=== PATIENT | female | born 1995 | race Caucasian/White ===

== ENCOUNTER 2018-08-17 14:21 | Emergency (ER) | payer BC ==
[2018-08-17] MEDS ORDERED: Ondansetron 4 MG Tab.DIS PO ONE (14:55)
--- NOTE | 2018-08-17 15:01 | EDM.PDOC ---
ED HPI GENERAL MEDICAL PROBLEM - General Chief Complaint: Abdominal Pain Stated Complaint: FEELING SICK Time Seen by Provider: 08/17/18 14:54 Source of Information: Reports: Patient History Limitations: Reports: No Limitations - History of Present Illness INITIAL COMMENTS - FREE TEXT/NARRATIVE: HISTORY AND PHYSICAL: History of present illness: Patient is a 23-year-old female who presents to the emergency room with complaints of pelvic pain, nausea and irregular menses. She states over the past 2 months she has had an irregular spotty menstrual period. Over the past 2 weeks she has had mild nausea without vomiting. She has taken home tests which have been negative. She denies any vaginal discharge. Denies any fever, chills, chest pain, shortness of breath or cough. Denies any abdominal pain, diarrhea, constipation or dysuria. She has been able to eat and drink appropriately. Review of systems: As per history of present illness and below otherwise all systems reviewed and negative. Past medical history: As per history of present illness and as reviewed below otherwise noncontributory. Surgical history: As per history of present illness and as reviewed below otherwise noncontributory. Social history: See social history for further information Family history: As per history of present illness and as reviewed below otherwise noncontributory. Physical exam: General: Well-developed and well-nourished 23-year-old female. Alert and oriented. Nontoxic appearing and in no acute distress. HEENT: Atraumatic, normocephalic, pupils equal and reactive bilaterally, negative for conjunctival pallor or scleral icterus, mucous membranes moist, TMs normal bilaterally, throat clear, neck supple, nontender, trachea midline. No drooling or trismus noted. No meningeal signs. No hot potato voice noted. Lungs: Clear to auscultation, breath sounds equal bilaterally, chest nontender. Heart: S1S2, regular rate and rhythm without overt murmur Abdomen: Soft, nondistended, nontender. Negative for masses or hepatosplenomegaly. Negative for costovertebral tenderness. Pelvis: Stable nontender. Genitourinary: Deferred. Rectal: Deferred. Skin: Intact, warm, dry. No lesions or rashes noted. Extremities: Atraumatic, negative for cords or calf pain. Neurovascular unremarkable. Neuro: Awake, alert, oriented. Cranial nerves II through XII unremarkable. Cerebellum unremarkable. Motor and sensory unremarkable throughout. Exam nonfocal. Notes: Lab work is unremarkable other than she does have a urinary tract infection. Ultrasound of the pelvis shows a 3.4 x 4 cm left ovarian cyst, otherwise unremarkable. This information was shared with the patient she was given education on appropriate follow-up and supportive care measures for home. She voices understanding and is agreeable to plan of care. Denies any further questions or concerns at this time. Diagnostics: CBC, CMP, UA, urine Therapeutics: Zofran ODT Prescription: Macrobid Pyridium Zofran Impression: UTI Ovarian Cyst, left Plan: 1. Take your antibiotic as directed. 2. Increase your oral fluids. Gentle heat to the low abdomen. Alternate Tylenol and ibuprofen for pain. 3. Follow up with the OBGYN for further evaluation and management of your irregular menstrual periods. Return to the ED as needed and as discussed. Definitive disposition and diagnosis as appropriate pending reevaluation and review of above. Duration: Week(s): lower abdomen, pelvic Pain Score (Numeric/FACES): 4 - Related Data Allergies Allergy/AdvReac Type Severity Reaction Status Date / Time No Known Allergies Allergy Verified 08/17/18 14:47 Home Meds: Home Meds Control 1 tab PO DAILY 08/17/18 [History] Nitrofurantoin Monohyd/M-Cryst [Macrobid 100 mg Capsule] 100 mg PO BID 7 Days # 14 capsule 08/17/18 [Rx] Phenazopyridine HCl [Pyridium] 100 mg PO TID 2 Days #6 tablet 08/17/18 [Rx] Sertraline [Zoloft] 200 mg PO DAILY 08/17/18 [History] Topiramate 50 mg PO BID 08/17/18 [History] Past Medical History - Past Health History Medical/Surgical History: Denies Medical/Surgical History - Past Surgical History HEENT Surgical History: Reports: Adenoidectomy Social & Family History - Family History Endocrine/Metabolic: Reports: Diabetes, Type I Oncologic: Reports: Leukemia - Tobacco Use Smoking Status *Q: Current Every Day Smoker Years of Tobacco use: 6 Packs/Tins Daily: 0.1 - Caffeine Use Caffeine Use: Reports: None - Recreational Drug Use Recreational Drug Use: No ED ROS GENERAL - Review of Systems Review Of Systems: ROS reveals no pertinent complaints other than HPI. ED EXAM, RENAL/ - Physical Exam Exam: See Below (See dictation) Course - Vital Signs Last Recorded V/S: Last Vital Signs Temp 98.2 F 08/17/18 14:43 Pulse 82 08/17/18 16:39 Resp 16 08/17/18 16:39 BP 117/75 08/17/18 16:39 Pulse Ox 96 08/17/18 16:39 - Orders/Labs/Meds Labs: Laboratory Tests 08/17/18 08/17/18 08/17/18 Range/Units 15:04 15:04 15:04 WBC 11.40 H (4.0-11.0) K/uL RBC 4.67 (4.30-5.90) M/uL Hgb 13.1 (12.0-16.0) g/dL Hct 39.8 (36.0-46.0) % MCV 85.2 (80.0-98.0) fL MCH 28.1 (27.0-32.0) pg MCHC 32.9 (31.0-37.0) g/dL RDW Std Deviation 41.0 (28.0-62.0) fl RDW Coeff of Sherita 13 (11.0-15.0) % Plt Count 370 (150-400) K/uL MPV 10.30 (7.40-12.00) fL Neut % (Auto) 71.0 (48.0-80.0) % Lymph % (Auto) 20.1 (16.0-40.0) % [place] % (Auto) 6.1 (0.0-15.0) % Eos % (Auto) 2.5 (0.0-7.0) % Baso % (Auto) 0.3 (0.0-1.5) % Neut # (Auto) 8.1 H (1.4-5.7) K/uL Lymph # (Auto) 2.3 (0.6-2.4) K/uL [place] # (Auto) 0.7 (0.0-0.8) K/uL Eos # (Auto) 0.3 (0.0-0.7) K/uL Baso # (Auto) 0.0 (0.0-0.1) K/uL Nucleated RBC % 0.0 /100WBC Nucleated RBCs # 0 K/uL Sodium 141 (136-145) mmol/L Potassium 4.0 (3.5-5.1) mmol/L Chloride 107 (98-107) mmol/L Carbon Dioxide 27.1 (21.0-32.0) mmol/L BUN 14 (7.0-18.0) mg/dL Creatinine 1.2 H (0.6-1.0) mg/dL Est Cr Clr Drug Dosing 71.51 mL/min Estimated GFR (MDRD) 56.2 ml/min Glucose 98 (74-106) mg/dL Calcium 9.7 (8.5-10.1) mg/dL Total Bilirubin 0.2 (0.2-1.0) mg/dL AST 17 (15-37) IU/L ALT 31 (14-63) IU/L Alkaline Phosphatase 80 (46-116) U/L Total Protein 7.8 (6.4-8.2) g/dL Albumin 3.6 (3.4-5.0) g/dL Globulin 4.2 H (2.6-4.0) g/dL Albumin/Globulin Ratio 0.9 (0.9-1.6) HCG, Qual NEGATIVE (NEG) Urine Color Urine Appearance Urine pH (5.0-8.0) Ur Specific [place] (1.001-1.035) Urine Protein (NEGATIVE) mg/dL Urine Glucose (UA) (NEGATIVE) mg/dL Urine Ketones (NEGATIVE) mg/dL Urine Occult Blood (NEGATIVE) Urine Nitrite (NEGATIVE) Urine Bilirubin (NEGATIVE) Urine Urobilinogen (<2.0) EU/dL Ur Leukocyte Esterase (NEGATIVE) Urine RBC (0-2/HPF) Urine WBC (0-5/HPF) Ur Epithelial Cells (NONE-FEW) Calcium Oxalate Crystal (NEGATIVE) Amorphous Sediment (NEGATIVE) Urine Bacteria (NEGATIVE) Urine Mucus (NONE-MOD) 08/17/18 Range/Units 15:33 WBC (4.0-11.0) K/uL RBC (4.30-5.90) M/uL Hgb (12.0-16.0) g/dL Hct (36.0-46.0) % MCV (80.0-98.0) fL MCH (27.0-32.0) pg MCHC (31.0-37.0) g/dL RDW Std Deviation (28.0-62.0) fl RDW Coeff of Sherita (11.0-15.0) % Plt Count (150-400) K/uL MPV (7.40-12.00) fL Neut % (Auto) (48.0-80.0) % Lymph % (Auto) (16.0-40.0) % [place] % (Auto) (0.0-15.0) % Eos % (Auto) (0.0-7.0) % Baso % (Auto) (0.0-1.5) % Neut # (Auto) (1.4-5.7) K/uL Lymph # (Auto) (0.6-2.4) K/uL [place] # (Auto) (0.0-0.8) K/uL Eos # (Auto) (0.0-0.7) K/uL Baso # (Auto) (0.0-0.1) K/uL Nucleated RBC % /100WBC Nucleated RBCs # K/uL Sodium (136-145) mmol/L Potassium (3.5-5.1) mmol/L Chloride (98-107) mmol/L Carbon Dioxide (21.0-32.0) mmol/L BUN (7.0-18.0) mg/dL Creatinine (0.6-1.0) mg/dL Est Cr Clr Drug Dosing mL/min Estimated GFR (MDRD) ml/min Glucose (74-106) mg/dL Calcium (8.5-10.1) mg/dL Total Bilirubin (0.2-1.0) mg/dL AST (15-37) IU/L ALT (14-63) IU/L Alkaline Phosphatase (46-116) U/L Total Protein (6.4-8.2) g/dL Albumin (3.4-5.0) g/dL Globulin (2.6-4.0) g/dL Albumin/Globulin Ratio (0.9-1.6) HCG, Qual (NEG) Urine Color YELLOW Urine Appearance SLT CLOUDY Urine pH 6.0 (5.0-8.0) Ur Specific [place] 1.025 (1.001-1.035) Urine Protein NEGATIVE (NEGATIVE) mg/dL Urine Glucose (UA) NEGATIVE (NEGATIVE) mg/dL Urine Ketones TRACE H (NEGATIVE) mg/dL Urine Occult Blood NEGATIVE (NEGATIVE) Urine Nitrite NEGATIVE (NEGATIVE) Urine Bilirubin NEGATIVE (NEGATIVE) Urine Urobilinogen 0.2 (<2.0) EU/dL Ur Leukocyte Esterase NEGATIVE (NEGATIVE) Urine RBC 0-2 (0-2/HPF) Urine WBC 2-3 (0-5/HPF) Ur Epithelial Cells FEW (NONE-FEW) Calcium Oxalate Crystal FEW (NEGATIVE) Amorphous Sediment FEW (NEGATIVE) Urine Bacteria FEW (NEGATIVE) Urine Mucus FEW (NONE-MOD) Meds: Medications Discontinued Medications Generic Name Dose Route Start Last Admin Trade Name Gama PRN Reason Stop Dose Admin Ketorolac Tromethamine 30 mg 08/17/18 15:53 08/17/18 16:39 Toradol IVPUSH 08/17/18 15:54 Not Given ONETIME ONE Ondansetron HCl 4 mg 08/17/18 14:55 08/17/18 15:32 Zofran Odt PO 08/17/18 14:56 4 mg ONETIME ONE Administration Departure - Departure Time of Disposition: 16:45 Disposition: Home, Self-Care 01 Clinical Impression: Ovarian cyst Qualifiers: Laterality: left Qualified Code(s): N83.202 - Unspecified ovarian cyst, left side Urinary tract infection Qualifiers: Urinary tract infection type: acute cystitis Hematuria presence: without hematuria Qualified Code(s): N30.00 - Acute cystitis without hematuria - Discharge Information Prescriptions: Nitrofurantoin Monohyd/M-Cryst [Macrobid 100 mg Capsule] 100 mg PO BID 7 Days # 14 capsule Phenazopyridine HCl [Pyridium] 100 mg PO TID 2 Days #6 tablet Instructions: Ovarian Cyst, [id number], Urinary Tract Infection, Adult Referrals: PCP,Unknown [Primary Care Provider] - Forms: ED Department Discharge Care Plan Goals: The following information is given to patients seen in the emergency department who are being discharged to home. This information is to outline your options for follow-up care. We provide all patients seen in our emergency department with a follow-up referral. The need for follow-up, as well as the timing and circumstances, are variable depending upon the specifics of your emergency department visit. If you don't have a primary care physician on staff, we will provide you with a referral. We always advise you to contact your personal physician following an emergency department visit to inform them of the circumstance of the visit and for follow-up with them and/or the need for any referrals to a consulting specialist. The emergency department will also refer you to a specialist when appropriate. This referral assures that you have the opportunity for follow-up care with a specialist. All of these measure are taken in an effort to provide you with optimal care, which includes your follow-up. Under all circumstances we always encourage you to contact your private physician who remains a resource for coordinating your care. When calling for follow-up care, please make the office aware that this follow-up is from your recent emergency room visit. If for any reason you are refused follow-up, please contact the [facility] at and asked to speak to the emergency department charge nurse. [facility] [address] [place] [id number] [address] [facility] [address] [place] [id number] 1. Take your antibiotic as directed. 2. Increase your oral fluids. Gentle heat to the low abdomen. Alternate Tylenol and ibuprofen for pain. 3. Follow up with the OBGYN for further evaluation and management of your irregular menstrual periods. Return to the ED as needed and as discussed.
[2018-08-17] MEDS ORDERED: Ketorolac 30 MG/ML SDV IVPUSH ONE (15:53)
--- NOTE | 2018-08-17 16:39 | US ---
EXAMINATION: Transabdominal and transvaginal pelvic ultrasound HISTORY: Pain COMPARISON: None TECHNIQUE: Grayscale, color Doppler, spectral Doppler imaging obtained. FINDINGS: The uterus is normal in contour and echotexture without a focal mass. Endometrial stripe thickness measures 1 cm and is otherwise unremarkable. There is a 3.4 x 4 cm left ovarian cyst, essentially simple. Otherwise the ovaries appear otherwise unremarkable demonstrating normal color spectral Doppler flow. Trace free pelvic fluid. IMPRESSION: 1. There is a 3.4 x 4 cm left ovarian cyst otherwise unremarkable pelvic ultrasound.
== END 2018-08-17 17:09 | disposition home or self-care (01) ==
LOC: MW.ED 14:21
DX: N83.202 Unspecified ovarian cyst, left side (principal); N39.0 Urinary tract infection, site not specified; F17.210 Nicotine dependence, cigarettes, uncomplicated
CPT/HCPCS: 36415; 76856; 80053; 81001; 84703; 85025; 99284; A9270; 99283

== ENCOUNTER 2018-11-21 11:06 | Emergency (ER) | payer BC ==
[2018-11-21] MEDS ORDERED: Sodium Chloride 0.9% 1,000 ML IV ONE (11:10)
[2018-11-21] MEDS ORDERED: Ondansetron 4 MG/2 ML SDV IVPUSH ONE (11:10)
--- NOTE | 2018-11-21 11:11 | EDM.PDOC ---
ED HPI GENERAL MEDICAL PROBLEM - General Chief Complaint: Abdominal Pain Stated Complaint: ABDOMINAL PAIN Time Seen by Provider: 11/21/18 11:10 Source of Information: Reports: Patient - History of Present Illness INITIAL COMMENTS - FREE TEXT/NARRATIVE: HISTORY AND PHYSICAL: History of present illness: [Patient presents with right lower quadrant pain 3 out of 10 nonradiating that began at 10 AM this morning no fever nausea vomiting chills sweats ] Review of systems: As per history of present illness and below otherwise all systems reviewed and negative. Past medical history: As per history of present illness and as reviewed below otherwise noncontributory. Surgical history: As per history of present illness and as reviewed below otherwise noncontributory. Social history: No reported history of drug or alcohol abuse. Family history: As per history of present illness and as reviewed below otherwise noncontributory. Physical exam: HEENT: Atraumatic, normocephalic, pupils reactive, negative for conjunctival pallor or scleral icterus, mucous membranes moist, throat clear, neck supple, nontender, trachea midline. Lungs: Clear to auscultation, breath sounds equal bilaterally, chest nontender. Heart: S1S2, regular, negative for clicks, rubs, or JVD. Abdomen: Soft, nondistended, patient is tender on deep palpation in the right lower quadrant no guarding or rebound tenderness. Negative for masses or hepatosplenomegaly. Negative for costovertebral tenderness. Pelvis: Stable nontender. Genitourinary: Deferred. Rectal: Deferred. Extremities: Atraumatic, negative for cords or calf pain. Neurovascular unremarkable. Neuro: Awake, alert, oriented. Cranial nerves II through XII unremarkable. Cerebellum unremarkable. Motor and sensory unremarkable throughout. Exam nonfocal. Diagnostics: [CBC CMP UA hCG troponin lipase ]CT abdomen pelvis Therapeutics: []Renal saline Zofran Toradol Toradol Current if symptoms persist or worsen Lengthy discussion concerning early appendicitis versus ovarian cyst as she does have an enlarged appendix [address] however no secondary inflammatory changes along with an ovarian cyst on the right radiology feels this is less likely appendix, I did page for Dr. Eagle however he has not responded patient is wanting to go home and she'll return if symptoms persist or worsen she voice understanding of possibility of early appendicitis Impression: [] abdominal pain Definitive disposition and diagnosis as appropriate pending reevaluation and review of above. abd Pain Score (Numeric/FACES): 8 - Related Data Allergies Allergy/AdvReac Type Severity Reaction Status Date / Time No Known Allergies Allergy Verified 08/17/18 14:47 Home Meds: Home Meds Control 1 tab PO DAILY 08/17/18 [History] Topiramate 50 mg PO BID 08/17/18 [History] FLUoxetine HCl [Prozac] 20 mg PO DAILY 11/21/18 [History] Past Medical History - Past Health History Medical/Surgical History: Denies Medical/Surgical History - Past Surgical History HEENT Surgical History: Reports: Adenoidectomy Social & Family History - Family History Endocrine/Metabolic: Reports: Diabetes, Type I Oncologic: Reports: Leukemia - Caffeine Use Caffeine Use: Reports: None ED ROS GENERAL - Review of Systems Review Of Systems: See Below ED EXAM, GENERAL - Physical Exam Exam: See Below Course - Vital Signs Last Recorded V/S: Last Vital Signs Temp 97 F 11/21/18 11:14 Pulse 74 11/21/18 13:29 Resp 18 11/21/18 13:29 BP 110/60 11/21/18 13:29 Pulse Ox 98 11/21/18 13:29 - Orders/Labs/Meds Labs: Laboratory Tests 11/21/18 11/21/18 11/21/18 Range/Units 11:40 11:40 11:42 WBC 10.71 (4.0-11.0) K/uL RBC 4.61 (4.30-5.90) M/uL Hgb 12.9 (12.0-16.0) g/dL Hct 40.1 (36.0-46.0) % MCV 87.0 (80.0-98.0) fL MCH 28.0 (27.0-32.0) pg MCHC 32.2 (31.0-37.0) g/dL RDW Std Deviation 42.9 (28.0-62.0) fl RDW Coeff of Sherita 14 (11.0-15.0) % Plt Count 299 (150-400) K/uL MPV 10.50 (7.40-12.00) fL Neut % (Auto) 70.7 (48.0-80.0) % Lymph % (Auto) 20.1 (16.0-40.0) % [place] % (Auto) 5.7 (0.0-15.0) % Eos % (Auto) 3.2 (0.0-7.0) % Baso % (Auto) 0.3 (0.0-1.5) % Neut # (Auto) 7.6 H (1.4-5.7) K/uL Lymph # (Auto) 2.2 (0.6-2.4) K/uL [place] # (Auto) 0.6 (0.0-0.8) K/uL Eos # (Auto) 0.3 (0.0-0.7) K/uL Baso # (Auto) 0.0 (0.0-0.1) K/uL Nucleated RBC % 0.0 /100WBC Nucleated RBCs # 0 K/uL Sodium 140 (136-145) mmol/L Potassium 4.2 (3.5-5.1) mmol/L Chloride 107 (98-107) mmol/L Carbon Dioxide 22.9 (21.0-32.0) mmol/L BUN 15 (7.0-18.0) mg/dL Creatinine 0.9 (0.6-1.0) mg/dL Est Cr Clr Drug Dosing 91.79 mL/min Estimated GFR (MDRD) > 60.0 ml/min Glucose 109 H (74-106) mg/dL Calcium 8.9 (8.5-10.1) mg/dL Total Bilirubin 0.4 (0.2-1.0) mg/dL AST 29 (15-37) IU/L ALT 39 (14-63) IU/L Alkaline Phosphatase 58 (46-116) U/L Troponin I < 0.050 (0.000-0.056) ng/mL Total Protein 7.2 (6.4-8.2) g/dL Albumin 3.4 (3.4-5.0) g/dL Globulin 3.8 (2.6-4.0) g/dL Albumin/Globulin Ratio 0.9 (0.9-1.6) Lipase 75 (73-393) U/L Urine Color YELLOW Urine Appearance CLEAR Urine pH 5.5 (5.0-8.0) Ur Specific [place] >= 1.030 (1.001-1.035) Urine Protein NEGATIVE (NEGATIVE) mg/dL Urine Glucose (UA) NEGATIVE (NEGATIVE) mg/dL Urine Ketones NEGATIVE (NEGATIVE) mg/dL Urine Occult Blood NEGATIVE (NEGATIVE) Urine Nitrite NEGATIVE (NEGATIVE) Urine Bilirubin NEGATIVE (NEGATIVE) Urine Urobilinogen 0.2 (<2.0) EU/dL Ur Leukocyte Esterase NEGATIVE (NEGATIVE) Urine HCG, Qual (NEGATIVE) 11/21/18 Range/Units 11:42 WBC (4.0-11.0) K/uL RBC (4.30-5.90) M/uL Hgb (12.0-16.0) g/dL Hct (36.0-46.0) % MCV (80.0-98.0) fL MCH (27.0-32.0) pg MCHC (31.0-37.0) g/dL RDW Std Deviation (28.0-62.0) fl RDW Coeff of Sherita (11.0-15.0) % Plt Count (150-400) K/uL MPV (7.40-12.00) fL Neut % (Auto) (48.0-80.0) % Lymph % (Auto) (16.0-40.0) % [place] % (Auto) (0.0-15.0) % Eos % (Auto) (0.0-7.0) % Baso % (Auto) (0.0-1.5) % Neut # (Auto) (1.4-5.7) K/uL Lymph # (Auto) (0.6-2.4) K/uL [place] # (Auto) (0.0-0.8) K/uL Eos # (Auto) (0.0-0.7) K/uL Baso # (Auto) (0.0-0.1) K/uL Nucleated RBC % /100WBC Nucleated RBCs # K/uL Sodium (136-145) mmol/L Potassium (3.5-5.1) mmol/L Chloride (98-107) mmol/L Carbon Dioxide (21.0-32.0) mmol/L BUN (7.0-18.0) mg/dL Creatinine (0.6-1.0) mg/dL Est Cr Clr Drug Dosing mL/min Estimated GFR (MDRD) ml/min Glucose (74-106) mg/dL Calcium (8.5-10.1) mg/dL Total Bilirubin (0.2-1.0) mg/dL AST (15-37) IU/L ALT (14-63) IU/L Alkaline Phosphatase (46-116) U/L Troponin I (0.000-0.056) ng/mL Total Protein (6.4-8.2) g/dL Albumin (3.4-5.0) g/dL Globulin (2.6-4.0) g/dL Albumin/Globulin Ratio (0.9-1.6) Lipase (73-393) U/L Urine Color Urine Appearance Urine pH (5.0-8.0) Ur Specific [place] (1.001-1.035) Urine Protein (NEGATIVE) mg/dL Urine Glucose (UA) (NEGATIVE) mg/dL Urine Ketones (NEGATIVE) mg/dL Urine Occult Blood (NEGATIVE) Urine Nitrite (NEGATIVE) Urine Bilirubin (NEGATIVE) Urine Urobilinogen (<2.0) EU/dL Ur Leukocyte Esterase (NEGATIVE) Urine HCG, Qual NEGATIVE (NEGATIVE) Meds: Medications Discontinued Medications Generic Name Dose Route Start Last Admin Trade Name Joseq PRN Reason Stop Dose Admin Sodium Chloride 1,000 mls @ 999 mls/hr 11/21/18 11:10 11/21/18 11:37 Normal Saline IV 11/21/18 12:10 999 mls/hr STAT ONE Administration Iopamidol 100 ml 11/21/18 12:52 11/21/18 12:52 Isovue Multipack-370 (76%) IVPUSH 11/21/18 12:53 100 ml ONETIME ONE Administration Ketorolac Tromethamine 30 mg 11/21/18 11:40 11/21/18 12:08 Toradol IVPUSH 11/21/18 11:41 30 mg ONETIME ONE Administration Ondansetron HCl 8 mg 11/21/18 11:10 11/21/18 11:38 Zofran IVPUSH 11/21/18 11:11 8 mg ONETIME ONE Administration Departure - Departure Time of Disposition: 14:26 Disposition: Home, Self-Care 01 Condition: Good Clinical Impression: Abdominal pain - Discharge Information Referrals: PCP,None [Primary Care Provider] - Forms: ED Department Discharge Additional Instructions: Return if symptoms persist or worsen or if new concerning symptoms develop chest fever vomiting chills sweats increased abdominal pain Medication as prescribed Is discussed this could represent a very early appendicitis is your appendix is larger than normal however there are no secondary inflammatory changes also there is a ovarian cyst that a likely be the problem as well if symptoms above persist or worsen return to emergency room for reevaluation The following information is given to patients seen in the emergency department who are being discharged to home. This information is to outline your options for follow-up care. We provide all patients seen in our emergency department with a follow-up referral. The need for follow-up, as well as the timing and circumstances, are variable depending upon the specifics of your emergency department visit. If you don't have a primary care physician on staff, we will provide you with a referral. We always advise you to contact your personal physician following an emergency department visit to inform them of the circumstance of the visit and for follow-up with them and/or the need for any referrals to a consulting specialist. The emergency department will also refer you to a specialist when appropriate. This referral assures that you have the opportunity for follow-up care with a specialist. All of these measure are taken in an effort to provide you with optimal care, which includes your follow-up. Under all circumstances we always encourage you to contact your private physician who remains a resource for coordinating your care. When calling for follow-up care, please make the office aware that this follow-up is from your recent emergency room visit. If for any reason you are refused follow-up, please contact the [facility] emergency department at and asked to speak to the emergency department charge nurse.
[2018-11-21] MEDS ORDERED: Ketorolac 30 MG/ML SDV IVPUSH ONE (11:40)
[2018-11-21 12:18] LABS: CHLORIDE,CL 107 mmol/L (98-107); SODIUM,NA 140 mmol/L (136-145)
[2018-11-21] MEDS ORDERED: Iopamidol 755 MG/ML 200 ML Multipack Bottle IVPUSH ONE (12:52)
--- NOTE | 2018-11-21 13:51 | CT ---
INDICATION: Right lower quadrant abdominal pain. Vomiting. TECHNIQUE: CT abdomen and pelvis acquired with IV contrast. COMPARISON: None FINDINGS: Lower chest: Unremarkable. Liver: Unremarkable. Spleen: Unremarkable. Pancreas: Unremarkable. Gallbladder and bile ducts: Tiny gallstones noted. No wall thickening or pericholecystic fluid Kidneys: Unremarkable. Adrenal glands: Unremarkable. GI tract: The appendix is prominent measuring 7 mm in caliber. However, there is no significant periappendiceal inflammatory fat stranding. There is gas in the base of the appendix. No appendicolith. There is no bowel wall thickening. No small bowel obstruction. Vascular structures: No sign of aneurysm. Lymph nodes: Unremarkable. Miscellaneous: No free air. There is a small amount of free fluid in the pelvis, left and right pericolic gutters as well as at the anterior margin of the liver. Pelvic Organs: 2.2 cm cyst in the right ovary. 1.6 cm cyst in the left ovary. Uterus and urinary bladder appear normal. Bones: No acute abnormality. No suspicious bone lesion. IMPRESSION: 1. There is a small amount of free fluid in the pelvis, the left and right pericolic gutters as well as at the anterior margin of the liver. The etiology is uncertain. There are bilateral ovarian cysts, greater on the right, and this may be sequelae of rupture of an ovarian cyst. Consider pelvic ultrasound. 2. Although the appendix is prominent measuring 7 mm there is no significant periappendiceal inflammatory fat stranding and no appendicolith. This is unlikely to represent appendicitis. Recommend close clinical followup. 3. Tiny gallstones. Dictated by Jake Sullivan MD @ 11/21/2018 1:48:26 PM Please note that all CT scans at this facility use dose modulation, iterative reconstruction, and/or weight-based dosing when appropriate to reduce radiation dose to as low as reasonably achievable. Dictated by: Jake Sullivan MD @ 11/21/2018 13:48:30 (Electronically Signed)
== END 2018-11-21 14:41 | disposition home or self-care (01) ==
LOC: MW.ED 11:06
DX: R10.31 Right lower quadrant pain (principal)
CPT/HCPCS: 74177; 80053; 81003; 81025; 83690; 84484; 85025; 96361; 96374; 96375; 99284; J1885; J2405; J7040; Q9967

== ENCOUNTER 2019-02-14 23:47 | Emergency (ER) | payer BC ==
[2019-02-15] MEDS ORDERED: Phenazopyridine 200 MG Tab PO ONE (00:21)
--- NOTE | 2019-02-15 00:21 | EDM.PDOC ---
ED HPI GENERAL MEDICAL PROBLEM - General Chief Complaint: Genitourinary Problem Stated Complaint: POSSIBLE UTI Time Seen by Provider: 02/15/19 00:18 - History of Present Illness INITIAL COMMENTS - FREE TEXT/NARRATIVE: HISTORY AND PHYSICAL: History of present illness: Patient 23-year-old female presents with concern of discomfort with urination and frequency there's been no fever chills nausea vomiting or back pain she states that similar episodes in the past with urinary tract infection Review of systems: As per history of present illness and below otherwise all systems reviewed and negative. Past medical history: As per history of present illness and as reviewed below otherwise noncontributory. Surgical history: As per history of present illness and as reviewed below otherwise noncontributory. Social history: No reported history of drug or alcohol abuse. Family history: As per history of present illness and as reviewed below otherwise noncontributory. Physical exam: HEENT: Atraumatic, normocephalic, pupils reactive, negative for conjunctival pallor or scleral icterus, mucous membranes moist, throat clear, neck supple, nontender, trachea midline. Lungs: Clear to auscultation, breath sounds equal bilaterally, chest nontender. Heart: S1S2, regular, negative for clicks, rubs, or JVD. Abdomen: Soft, nondistended, nontender. Negative for masses or hepatosplenomegaly. Negative for costovertebral tenderness. Pelvis: Stable nontender. Genitourinary: Deferred. Rectal: Deferred. Extremities: Atraumatic, negative for cords or calf pain. Neurovascular unremarkable. Neuro: Awake, alert, oriented. Cranial nerves II through XII unremarkable. Cerebellum unremarkable. Motor and sensory unremarkable throughout. Exam nonfocal. Diagnostics: UA hCG Therapeutics: None Impression: 1 urinary tract infection Definitive disposition and diagnosis as appropriate pending reevaluation and review of above. Left Flank Pain Score (Numeric/FACES): 6 - Related Data Allergies Allergy/AdvReac Type Severity Reaction Status Date / Time No Known Allergies Allergy Verified 02/15/19 00:02 Past Medical History - Past Health History Medical/Surgical History: Denies Medical/Surgical History - Infectious Disease History Infectious Disease History: Reports: None - Past Surgical History HEENT Surgical History: Reports: Adenoidectomy Social & Family History - Family History Family Medical History: Noncontributory Endocrine/Metabolic: Reports: Diabetes, Type I Oncologic: Reports: Leukemia - Tobacco Use Smoking Status *Q: Former Smoker Years of Tobacco use: 6 Packs/Tins Daily: 1 Used Tobacco, but Quit: No - Caffeine Use Caffeine Use: Reports: Coffee - Recreational Drug Use Recreational Drug Use: No ED ROS GENERAL - Review of Systems Review Of Systems: ROS reveals no pertinent complaints other than HPI. ED EXAM, GENERAL - Physical Exam Exam: See Below (See dictation) Course - Vital Signs Last Recorded V/S: Last Vital Signs Temp 36.4 C 02/15/19 00:04 Pulse 96 02/15/19 00:04 Resp 16 02/15/19 00:04 BP 128/81 02/15/19 00:04 Pulse Ox 97 02/15/19 00:04 - Orders/Labs/Meds Orders: Active Orders 24 hr Category Date Time Status HCG QUALITATIVE,URINE [URCHEM] Stat Lab 02/14/19 23:52 Ordered UA RFX LISSETH AND CULT IF INDIC [URIN] Stat Lab 02/14/19 23:52 Ordered Departure - Departure Time of Disposition: 00:20 Disposition: Home, Self-Care 01 Condition: Good Clinical Impression: UTI, Urinary tract infectious disease - Discharge Information Referrals: PCP,None [Primary Care Provider] - Additional Instructions: The following information is given to patients seen in the emergency department who are being discharged to home. This information is to outline your options for follow-up care. We provide all patients seen in our emergency department with a follow-up referral. The need for follow-up, as well as the timing and circumstances, are variable depending upon the specifics of your emergency department visit. If you don't have a primary care physician on staff, we will provide you with a referral. We always advise you to contact your personal physician following an emergency department visit to inform them of the circumstance of the visit and for follow-up with them and/or the need for any referrals to a consulting specialist. The emergency department will also refer you to a specialist when appropriate. This referral assures that you have the opportunity for followup care with a specialist. All of these measure are taken in an effort to provide you with optimal care, which includes your followup. Under all circumstances we always encourage you to contact your private physician who remains a resource for coordinating your care. When calling for followup care, please make the office aware that this follow-up is from your recent emergency room visit. If for any reason you are refused follow-up, please contact the [facility] emergency department at and asked to speak to the emergency department charge nurse. Bactrim Pyridium as prescribed push fluids follow-up primary medical doctor as needed as discussed and return as needed as discussed - My Orders Last 24 Hours: My Active Orders 02/14/19 23:52 HCG QUALITATIVE,URINE [URCHEM] Stat UA RFX LISSETH AND CULT IF INDIC [URIN] Stat - Assessment/Plan Last 24 Hours: My Active Orders 02/14/19 23:52 HCG QUALITATIVE,URINE [URCHEM] Stat UA RFX LISSETH AND CULT IF INDIC [URIN] Stat
--- NOTE | 2019-02-15 01:31 | CT ---
INDICATION: Lower quadrant pain. COMPARISON: 11/21/2018 TECHNIQUE: CT examination of the abdomen and pelvis was performed without contrast enhancement using 3 mm thick axial sections from the lung bases through the pubic symphysis. Oral contrast was not administered. Please note that all CT scans at this facility use dose modulation, iterative reconstruction, and/or weight-based dosing when appropriate to reduce radiation dose to as low as reasonably achievable. FINDINGS: In the abdomen, the unenhanced liver, spleen, pancreas, and adrenals are normal in appearance. The unenhanced kidneys are normal in appearance. The gallbladder is normal in appearance. The abdominal aorta is normal in caliber with no sign of dilatation. There is no sign of retroperitoneal mass or adenopathy. The stomach, loops of small bowel, and colon in the abdomen are normal in appearance. In the pelvis, the air-filled appendix remains dilated to 7 millimeters but is otherwise normal in appearance with no sign of inflammatory process.. The loops of small bowel and colon in the pelvis are normal in appearance. The uterus and adnexal regions are normal in appearance. The previously seen cysts are no longer present in the ovaries. The previously seen free fluid in the pericolic gutters is no longer present. The urinary bladder is normal in appearance. There is no sign of pelvic or inguinal mass or adenopathy. The lung bases are clear. The osseous structures are normal in appearance for the patient`s age. IMPRESSION: Nothing seen to explain the patient`s left lower quadrant pain. No sign of diverticulosis or diverticulitis. No sign of abnormality in the left urinary system. No sign of any abnormality of the left ovary. Normal CT of the abdomen without contrast. Normal CT of the pelvis without contrast. Resolution of the previously seen bilateral ovarian cysts and fluid previously seen in the pericolic gutters. Please note that all CT scans at this facility use dose modulation, iterative reconstruction, and/or weight-based dosing when appropriate to reduce radiation dose to as low as reasonably achievable. Dictated by Charlie Uribe MD @ Feb 15 2019 1:24AM Signed by Dr. Charlie Uribe @ Feb 15 2019 1:30AM
== END 2019-02-15 02:06 | disposition home or self-care (01) ==
LOC: MW.ED 23:47
DX: N39.0 Urinary tract infection, site not specified (principal); F17.210 Nicotine dependence, cigarettes, uncomplicated
CPT/HCPCS: 74176; 81001; 81025; 99284; A9270; 99283

== ENCOUNTER 2019-03-07 21:58 | Emergency (ER) | payer BC ==
[2019-03-07] MEDS ORDERED: Sodium Chloride 0.9% 1,000 ML IV ONE (22:24)
[2019-03-07] MEDS ORDERED: Ketorolac 30 MG/ML SDV IVPUSH ONE (22:25)
[2019-03-07] MEDS ORDERED: Ondansetron 4 MG/2 ML SDV IVPUSH ONE (22:25)
[2019-03-07] MEDS ORDERED: diphenhydrAMINE 50 MG/ML SDV IVPUSH ONE (22:25)
[2019-03-07] MEDS ORDERED: Metoclopramide 10 MG/2 ML SDV IV ONE (22:25)
--- NOTE | 2019-03-07 22:39 | EDM.PDOC ---
<Bianca Gordon - Last Filed: 03/08/19 00:22> ED HPI GENERAL MEDICAL PROBLEM - General Chief Complaint: Fever Stated Complaint: FEVER Time Seen by Provider: 03/07/19 21:59 Source of Information: Reports: Patient History Limitations: Reports: No Limitations - History of Present Illness INITIAL COMMENTS - FREE TEXT/NARRATIVE: HISTORY AND PHYSICAL: History of present illness: Patient is a 23-year-old female presents to the ED today with concern of headache, generalized body aches, and sore throat since this morning. Patient states she does feel warm but has not had a fever. Patient states she has not taken anything for her symptoms. Patient states there is a chance that she may be as she is sexually active and is not on control. Patient denies a history of headaches and states that her headache is the worst complaint of the above. Patient denies any other symptoms or concerns at this time. Patient denies any trauma or injury. Patient denies fever, chills, chest pain, shortness of breath, or cough. Denies neck stiff ness, change in vision, syncope, or near syncope. Denies nausea, vomiting, abdominal pain, diarrhea, constipation, or dysuria. Has not noted any blood in urine or stool. Patient has been eating and drinking appropriately. Review of systems: As per history of present illness and below otherwise all systems reviewed and negative. Past medical history: As per history of present illness and as reviewed below otherwise noncontributory. Surgical history: As per history of present illness and as reviewed below otherwise noncontributory. Social history: See social history for further information Family history: As per history of present illness and as reviewed below otherwise noncontributory. Physical exam: General: Patient is alert, oriented, and in no acute distress. Patient sitting comfortably on exam table but is tired appearing. HEENT: Atraumatic, normocephalic, pupils equal and reactive bilaterally, negative for conjunctival pallor or scleral icterus, mucous membranes moist, TMs normal bilaterally, throat clear, neck supple, nontender, trachea midline. No drooling or trismus noted. No meningeal signs. No hot potato voice noted. Lungs: Clear to auscultation, breath sounds equal bilaterally, chest nontender. Heart: S1S2, regular rate and rhythm without overt murmur Abdomen: Soft, nondistended, nontender. Negative for masses or hepatosplenomegaly. Negative for costovertebral tenderness. Pelvis: Stable nontender. Genitourinary: Deferred. Rectal: Deferred. Skin: Intact, warm, dry. No lesions or rashes noted. Extremities/musculoskeletal: Atraumatic, negative for cords or calf pain. Neurovascular unremarkable. Negative Kernig and Brudzinski sign. Neuro: Awake, alert, oriented. Cranial nerves II through XII unremarkable. Cerebellum unremarkable. Motor and sensory unremarkable throughout. Exam nonfocal. Notes: Dr. Portillo was directly involved in patient care. Patient is slightly tachycardic on initial exam with HR 110-115. HR did come down to 95 with fluids. Headache has improved with therapeutics today. Did have a thorough discussion with patient about doing a lumbar procedure in order to rule out meningitis. However, patient has not had a documented fever and does not have any nuchal rigidity. Discussed the risk versus benefits of this and did express that the only way to rule out or diagnose meningitis would be the lumbar puncture. Patient declines a lumbar puncture procedure at this time and accepting of risks and expressing understanding. Admission for observation was offered but patient declines. Did discuss with patient about returning tomorrow for repeat CBC in registering in the ED for laboratory draw. Patient Voices understanding and is agreeable to plan of care. Denies any further questions or concerns at this time. Diagnostics: CBC, CMP, UA, Uhcg, strep, influenza, mononucleosis, head CT, CXR, Lactate, Blood cultures x2 Therapeutics: NS, Zofran, Toradol, Reglan, Benadryl, Rocephin 2g Prescription: Repeat CBC tomorrow (Dr. Portillo will follow) Impression: Leukocytosis Headache, unspecified Plan: 1. Continue to alternate ibuprofen and Tylenol as directed for pain and discomfort. 2. Return tomorrow after 7 PM and register for lab draw as discussed. Return to the ED as needed and as discussed. Definitive disposition and diagnosis as appropriate pending reevaluation and review of above. generalized Pain Score (Numeric/FACES): 7 - Related Data Allergies Allergy/AdvReac Type Severity Reaction Status Date / Time No Known Allergies Allergy Verified 03/07/19 22:07 Home Meds: Home Meds . [No Known Home Meds] 02/15/19 [History] Past Medical History - Past Health History Medical/Surgical History: Denies Medical/Surgical History HEENT History: Reports: None Cardiovascular History: Reports: None Respiratory History: Reports: None Gastrointestinal History: Reports: None Genitourinary History: Reports: None [employer] History: Reports: None Musculoskeletal History: Reports: None Neurological History: Reports: None Psychiatric History: Reports: None Endocrine/Metabolic History: Reports: None Hematologic History: Reports: None Immunologic History: Reports: None Oncologic (Cancer) History: Reports: None Dermatologic History: Reports: None - Infectious Disease History Infectious Disease History: Reports: None - Past Surgical History Head Surgeries/Procedures: Reports: None HEENT Surgical History: Reports: Adenoidectomy Social & Family History - Family History Family Medical History: Noncontributory Endocrine/Metabolic: Reports: Diabetes, Type I Oncologic: Reports: Leukemia - Tobacco Use Smoking Status *Q: Current Every Day Smoker Years of Tobacco use: 6 Packs/Tins Daily: 0.5 - Caffeine Use Caffeine Use: Reports: Coffee, Soda - Recreational Drug Use Recreational Drug Use: No ED ROS GENERAL - Review of Systems Review Of Systems: ROS reveals no pertinent complaints other than HPI. ED EXAM, GENERAL - Physical Exam Exam: See Below (see dictation) Course - Vital Signs Last Recorded V/S: Last Vital Signs Temp 37.3 C 03/08/19 00:00 Pulse 98 03/08/19 00:00 Resp 18 03/08/19 00:00 BP 111/57 L 03/08/19 00:00 Pulse Ox 95 03/08/19 00:00 - Orders/Labs/Meds Orders: Active Orders 24 hr Category Date Time Status EKG Documentation Completion [RC] STAT Care 03/07/19 22:28 Active CULTURE BLOOD [BC] Stat Lab 03/07/19 23:20 Received CULTURE BLOOD [BC] Stat Lab 03/07/19 23:50 Received CULTURE STREP A CONFIRMATION [] Stat Lab 03/07/19 22:15 Results STREP SCRN A RAPID W CULT CONF [] Stat Lab 03/07/19 22:15 Results cefTRIAXone [Rocephin in Dextrose,Iso-Osm 2 GM/50 ML] 2 Med 03/08/19 00:23 Active gm Premix Bag 1 bag IV ONETIME Blood Culture x2 Reflex Set [OM.PC] Stat Oth 03/07/19 23:09 Ordered Medication Orders Ceftriaxone Sodium/Dextrose 2 (gm/ Premix) 50 mls @ 100 mls/hr IV ONETIME ONE Stop: 03/08/19 00:52 Last Admin: 03/08/19 00:29 Dose: 100 mls/hr Labs: Laboratory Tests 03/07/19 03/07/19 03/07/19 Range/Units 22:36 22:36 22:36 WBC 20.08 H (4.0-11.0) K/uL RBC 4.54 (4.30-5.90) M/uL Hgb 12.7 (12.0-16.0) g/dL Hct 38.5 (36.0-46.0) % MCV 84.8 (80.0-98.0) fL MCH 28.0 (27.0-32.0) pg MCHC 33.0 (31.0-37.0) g/dL RDW Std Deviation 38.4 (28.0-62.0) fl RDW Coeff of Sherita 13 (11.0-15.0) % Plt Count 322 (150-400) K/uL MPV 10.10 (7.40-12.00) fL Neut % (Auto) 81.0 H (48.0-80.0) % Lymph % (Auto) 11.5 L (16.0-40.0) % Kendall % (Auto) 6.0 (0.0-15.0) % Eos % (Auto) 1.3 (0.0-7.0) % Baso % (Auto) 0.2 (0.0-1.5) % Neut # (Auto) 16.3 H (1.4-5.7) K/uL Lymph # (Auto) 2.3 (0.6-2.4) K/uL Kendall # (Auto) 1.2 H (0.0-0.8) K/uL Eos # (Auto) 0.3 (0.0-0.7) K/uL Baso # (Auto) 0.1 (0.0-0.1) K/uL Lactate (0.20-2.00) mmol/L Sodium 136 (136-145) mmol/L Potassium 3.6 (3.5-5.1) mmol/L Chloride 103 (98-107) mmol/L Carbon Dioxide 24.4 (21.0-32.0) mmol/L BUN 11 (7.0-18.0) mg/dL Creatinine 1.0 (0.6-1.0) mg/dL Est Cr Clr Drug Dosing 82.61 mL/min Estimated GFR (MDRD) > 60.0 ml/min Glucose 98 (74-106) mg/dL Calcium 9.2 (8.5-10.1) mg/dL Total Bilirubin 0.4 (0.2-1.0) mg/dL AST 20 (15-37) IU/L ALT 26 (14-63) IU/L Alkaline Phosphatase 69 (46-116) U/L Total Protein 7.3 (6.4-8.2) g/dL Albumin 3.7 (3.4-5.0) g/dL Globulin 3.6 (2.6-4.0) g/dL Albumin/Globulin Ratio 1.0 (0.9-1.6) Urine Color Urine Appearance Urine pH (5.0-8.0) Ur Specific [place]ock (1.001-1.035) Urine Protein (NEGATIVE) mg/dL Urine Glucose (UA) (NEGATIVE) mg/dL Urine Ketones (NEGATIVE) mg/dL Urine Occult Blood (NEGATIVE) Urine Nitrite (NEGATIVE) Urine Bilirubin (NEGATIVE) Urine Urobilinogen (<2.0) EU/dL Ur Leukocyte Esterase (NEGATIVE) Urine HCG, Qual (NEGATIVE) Monoscreen NEGATIVE (NEG) 03/07/19 03/07/19 03/07/19 Range/Units 22:50 23:00 23:00 WBC (4.0-11.0) K/uL RBC (4.30-5.90) M/uL Hgb (12.0-16.0) g/dL Hct (36.0-46.0) % MCV (80.0-98.0) fL MCH (27.0-32.0) pg MCHC (31.0-37.0) g/dL RDW Std Deviation (28.0-62.0) fl RDW Coeff of Sherita (11.0-15.0) % Plt Count (150-400) K/uL MPV (7.40-12.00) fL Neut % (Auto) (48.0-80.0) % Lymph % (Auto) (16.0-40.0) % Kendall % (Auto) (0.0-15.0) % Eos % (Auto) (0.0-7.0) % Baso % (Auto) (0.0-1.5) % Neut # (Auto) (1.4-5.7) K/uL Lymph # (Auto) (0.6-2.4) K/uL Kendall # (Auto) (0.0-0.8) K/uL Eos # (Auto) (0.0-0.7) K/uL Baso # (Auto) (0.0-0.1) K/uL Lactate 1.0 (0.20-2.00) mmol/L Sodium (136-145) mmol/L Potassium (3.5-5.1) mmol/L Chloride (98-107) mmol/L Carbon Dioxide (21.0-32.0) mmol/L BUN (7.0-18.0) mg/dL Creatinine (0.6-1.0) mg/dL Est Cr Clr Drug Dosing mL/min Estimated GFR (MDRD) ml/min Glucose (74-106) mg/dL Calcium (8.5-10.1) mg/dL Total Bilirubin (0.2-1.0) mg/dL AST (15-37) IU/L ALT (14-63) IU/L Alkaline Phosphatase (46-116) U/L Total Protein (6.4-8.2) g/dL Albumin (3.4-5.0) g/dL Globulin (2.6-4.0) g/dL Albumin/Globulin Ratio (0.9-1.6) Urine Color YELLOW Urine Appearance CLEAR Urine pH 8.5 H (5.0-8.0) Ur Specific [place] 1.015 (1.001-1.035) Urine Protein NEGATIVE (NEGATIVE) mg/dL Urine Glucose (UA) NEGATIVE (NEGATIVE) mg/dL Urine Ketones NEGATIVE (NEGATIVE) mg/dL Urine Occult Blood NEGATIVE (NEGATIVE) Urine Nitrite NEGATIVE (NEGATIVE) Urine Bilirubin NEGATIVE (NEGATIVE) Urine Urobilinogen 0.2 (<2.0) EU/dL Ur Leukocyte Esterase NEGATIVE (NEGATIVE) Urine HCG, Qual NEGATIVE (NEGATIVE) Monoscreen (NEG) Meds: Medications Generic Name Dose Route Start Last Admin Trade Name Freq PRN Reason Stop Dose Admin Ceftriaxone Sodium/Dextrose 2 50 mls @ 100 mls/hr 03/08/19 00:23 03/08/19 00: 29 gm/ Premix IV 03/08/19 00:52 100 mls/hr ONETIME ONE Administration Discontinued Medications Generic Name Dose Route Start Last Admin Trade Name Freq PRN Reason Stop Dose Admin Diphenhydramine HCl 25 mg 03/07/19 22:25 03/07/19 23:00 Benadryl IVPUSH 03/07/19 22:26 25 mg ONETIME ONE Administration Sodium Chloride 1,000 mls @ 999 mls/hr 03/07/19 22:24 03/07/19 23:00 Normal Saline IV 03/07/19 23:24 999 mls/hr BOLUS ONE Administration Ketorolac Tromethamine 30 mg 03/07/19 22:25 03/07/19 23:00 Toradol IVPUSH 03/07/19 22:26 30 mg ONETIME ONE Administration Metoclopramide HCl 10 mg 03/07/19 22:25 03/07/19 23:00 Reglan IV 03/07/19 22:26 10 mg ONETIME ONE Administration Ondansetron HCl 4 mg 03/07/19 22:25 03/07/19 23:00 Zofran IVPUSH 03/07/19 22:26 4 mg ONETIME ONE Administration Departure - Departure Time of Disposition: 00:27 Disposition: Home, Self-Care 01 Clinical Impression: Headache Qualifiers: Headache type: unspecified Headache chronicity pattern: acute headache Intractability: not intractable Qualified Code(s): R51 - Headache Leukocytosis Qualifiers: Leukocytosis type: unspecified Qualified Code(s): D72.829 - Elevated white blood cell count, unspecified - Discharge Information Instructions: Fever, Adult, [id number] Referrals: PCP,None [Primary Care Provider] - Forms: ED Department Discharge Additional Instructions: The following information is given to patients seen in the emergency department who are being discharged to home. This information is to outline your options for follow-up care. We provide all patients seen in our emergency department with a follow-up referral. The need for follow-up, as well as the timing and circumstances, are variable depending upon the specifics of your emergency department visit. If you don't have a primary care physician on staff, we will provide you with a referral. We always advise you to contact your personal physician following an emergency department visit to inform them of the circumstance of the visit and for follow-up with them and/or the need for any referrals to a consulting specialist. The emergency department will also refer you to a specialist when appropriate. This referral assures that you have the opportunity for follow-up care with a specialist. All of these measure are taken in an effort to provide you with optimal care, which includes your follow-up. Under all circumstances we always encourage you to contact your private physician who remains a resource for coordinating your care. When calling for follow-up care, please make the office aware that this follow-up is from your recent emergency room visit. If for any reason you are refused follow-up, please contact the [facility] Emergency Department at and asked to speak to the emergency department charge nurse. [facility] [address] [place] [address] [place] [address] 1. Continue to alternate ibuprofen and Tylenol as directed for pain and discomfort. 2. Return tomorrow after 7 PM and register for lab draw as discussed. Return to the ED as needed and as discussed. <Bernadette Portillo - Last Filed: 03/08/19 00:34> ED HPI GENERAL MEDICAL PROBLEM - History of Present Illness INITIAL COMMENTS - FREE TEXT/NARRATIVE: This is Dr. 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 She did have some shoddy anterior cervical adenopathy which seem to be uncomfortable on my exam and is visibly did tell me that she has pain with swallowing. Her intraoral cavity and was tearful areas looked normal without any erythema or exudates and there was no deviation of the uvula. She also had no posterior lymphadenopathy and no nuchal rigidity. Her heart rate headache nausea and body aches all improved with the interventions as described above. It was discussed with her and offered admission as well as lumbar puncture and she is declining both of those and is aware of the risks. She will return tomorrow to have her repeat CBC with differential when I am here in the emergency department and I will follow up that test result and discuss with her care plan going forward from there pending that result. She is aware that if any of the cultures come back positive she will be recontacted and she is also aware that if the CBC with differential is not improving and/or is worsening tomorrow that she may need to re-register to the ED and/or be admitted and she accepts that. She is comfortable with the care plan of receiving the antibiotics now and going home with symptomatic treatment with Tylenol and ibuprofen as well as IV fluids. It should be noted that the patient never had a documented fever at home or here in the emergency department and the highest temperature that has been documented is 100.2
[2019-03-07 23:00] LABS: BLOOD UREA NITROGEN,BUN 11 mg/dL (7.0-18.0); CARBON DIOXIDE,CO2 24.4 mmol/L (21.0-32.0); CHLORIDE,CL 103 mmol/L (98-107); GLUCOSE RANDOM 98 mg/dL (74-106); POTASSIUM,K 3.6 mmol/L (3.5-5.1); SODIUM,NA 136 mmol/L (136-145)
--- NOTE | 2019-03-07 23:53 | CR ---
INDICATION: Chest Pain, shortness of breath TECHNIQUE: Chest radiograph 2 views COMPARISON: None FINDINGS: Severe degradation of image quality noted due to body habitus. Mediastinum: Mild enlargement of the main pulmonary artery is present which may be due to pulmonary hypertension or pulmonic stenosis. The heart silhouette is normal in size and morphology. Lung: Both lungs are unremarkable in appearance. No sign of pleural effusion seen. No pneumothorax is identified. IMPRESSION: 1. Mild enlargement of the main pulmonary artery is present which may be due to pulmonary hypertension or pulmonic stenosis. Dictated by Patrick Acevedo MD @ 03/07/2019 11:52:27 PM Dictated by: Patrick Acevedo MD @ 03/07/2019 23:52:34 (Electronically Signed)
--- NOTE | 2019-03-08 00:12 | CT ---
INDICATION: Headache TECHNIQUE: CT head without contrast. COMPARISON: None FINDINGS: CSF spaces: Within normal limits for age. Brain parenchyma: The [place]-white differentiation is normal. No sign of mass, hemorrhage, or midline shift. Skull base and calvarium: The visualized paranasal sinuses and mastoid air cells demonstrate no acute or significant findings. The visualized orbits are grossly unremarkable. No skull fractures. IMPRESSION: Unremarkable noncontrast head CT. Dictated by Aiden Boone MD @ 03/08/2019 12:11:08 AM Please note that all CT scans at this facility use dose modulation, iterative reconstruction, and/or weight-based dosing when appropriate to reduce radiation dose to as low as reasonably achievable. Dictated by: Aiden Boone MD @ 03/08/2019 00:11:15 (Electronically Signed)
[2019-03-08] MEDS ORDERED: cefTRIAXone 2 GM in Premix Bag 1 BAG IV ONE (00:23)
== END 2019-03-08 01:17 | disposition home or self-care (01) ==
LOC: MW.ED 21:58
DX: R51 Headache (principal); D72.829 Elevated white blood cell count, unspecified
CPT/HCPCS: 36415; 70450; 71046; 80053; 81003; 81025; 83605; 85025; 86308; 87040; 87081; 87804; 87880; 93005; 96361; 96365; 96375; 99284; J0696; J1200; J1885; J2405; J2765; J7040

== ENCOUNTER 2019-05-03 12:41 | Emergency (ER) | payer BC ==
--- NOTE | 2019-05-03 13:01 | EDM.PDOC ---
ED HPI GENERAL MEDICAL PROBLEM - General Chief Complaint: Gastrointestinal Problem Stated Complaint: NAUSEA Time Seen by Provider: 05/03/19 13:01 Source of Information: Reports: Patient History Limitations: Reports: No Limitations - History of Present Illness INITIAL COMMENTS - FREE TEXT/NARRATIVE: HISTORY AND PHYSICAL: History of present illness: Patient is a 24-year-old female presents to the ED with complaint of nausea x 1 week. She states she took a test at home but was negative. She states she is not trying to prevent and she is sexually active and not using control. She states LMP 2 weeks ago. She states she had one episode of vomiting this morning and has had diarrhea x 1 week. She reports some dysuria. She denies fevers, chills, abdominal pain, back pain. Review of systems: As per history of present illness and below otherwise all systems reviewed and negative. Past medical history: As per history of present illness and as reviewed below otherwise noncontributory. Surgical history: As per history of present illness and as reviewed below otherwise noncontributory. Social history: No reported history of drug or alcohol abuse. Family history: As per history of present illness and as reviewed below otherwise noncontributory. Physical exam: General: Patient sitting comfortably in no acute distress and nontoxic appearing HEENT: Atraumatic, normocephalic, pupils reactive, negative for conjunctival pallor or scleral icterus, mucous membranes moist, throat clear, neck supple, nontender, trachea midline. No meningeal signs. Lungs: Clear to auscultation, breath sounds equal bilaterally, chest nontender. Heart: S1S2, regular, negative for clicks, rubs, or overt murmur. Abdomen: Soft, nondistended, nontender. Negative for masses or hepatosplenomegaly. Negative for costovertebral tenderness. No rigidity, rebound , guarding. Pelvis: Stable nontender. Genitourinary: Deferred. Rectal: Deferred. Extremities: Atraumatic, negative for cords or calf pain. Neurovascular unremarkable. Neuro: Awake, alert, oriented. Cranial nerves II through XII unremarkable. Cerebellum unremarkable. Motor and sensory unremarkable throughout. Exam nonfocal. Notes: Diagnostics: UA, urine hcg Therapeutics: [] Prescriptions: macrobid zofran Impression: UTI Plan: Drink plenty of fluids and take antibiotic as directed. Follow up with primary care provider Return to ED as needed as discussed Definitive disposition and diagnosis as appropriate pending reevaluation and review of above. - Related Data Allergies Allergy/AdvReac Type Severity Reaction Status Date / Time No Known Allergies Allergy Verified 05/03/19 12:56 Home Meds: Home Meds Nitrofurantoin Monohyd/M-Cryst [Macrobid 100 mg Capsule] 100 mg PO BID 7 Days # 14 capsule 05/03/19 [Rx] Ondansetron [Zofran ODT] 4 mg PO Q6H PRN #10 tab.dis 05/03/19 [Rx] Past Medical History - Past Health History Medical/Surgical History: Denies Medical/Surgical History HEENT History: Reports: None Cardiovascular History: Reports: None Respiratory History: Reports: None Gastrointestinal History: Reports: None Genitourinary History: Reports: None 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: Reports: 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 Musculoskeletal History: Reports: None Neurological History: Reports: None Psychiatric History: Reports: None Endocrine/Metabolic History: Reports: None Hematologic History: Reports: None Immunologic History: Reports: None Oncologic (Cancer) History: Reports: None Dermatologic History: Reports: None - Infectious Disease History Infectious Disease History: Reports: None - Past Surgical History Head Surgeries/Procedures: Reports: None HEENT Surgical History: Reports: Adenoidectomy Social & Family History - Family History Family Medical History: Noncontributory Endocrine/Metabolic: Reports: Diabetes, Type I Oncologic: Reports: Leukemia - Caffeine Use Caffeine Use: Reports: Coffee, Soda ED ROS GENERAL - Review of Systems Review Of Systems: ROS reveals no pertinent complaints other than HPI. ED EXAM, GI/ABD - Physical Exam Exam: See Below (see dictation) Course - Vital Signs Last Recorded V/S: Last Vital Signs Temp 97.5 F 05/03/19 12:58 Pulse 99 05/03/19 12:58 Resp 16 05/03/19 12:58 BP 129/86 05/03/19 12:58 Pulse Ox 98 05/03/19 12:58 - Orders/Labs/Meds Orders: Active Orders 24 hr Category Date Time Status CULTURE URINE [RM] Stat Lab 05/03/19 13:02 Received UA W/MICROSCOPIC [URIN] Stat Lab 05/03/19 13:02 Received Labs: Laboratory Tests 05/03/19 05/03/19 Range/Units 13:02 13:02 Urine Color YELLOW Urine Appearance SLT CLOUDY Urine pH 6.0 (5.0-8.0) Ur Specific [place] 1.025 (1.001-1.035) Urine Protein NEGATIVE (NEGATIVE) mg/dL Urine Glucose (UA) NEGATIVE (NEGATIVE) mg/dL Urine Ketones NEGATIVE (NEGATIVE) mg/dL Urine Occult Blood SMALL H (NEGATIVE) Urine Nitrite NEGATIVE (NEGATIVE) Urine Bilirubin NEGATIVE (NEGATIVE) Urine Urobilinogen 0.2 (<2.0) EU/dL Ur Leukocyte Esterase MODERATE H (NEGATIVE) Urine RBC 2-6 (0-2/HPF) Urine WBC 50-78 (0-5/HPF) Ur Epithelial Cells FEW (NONE-FEW) Amorphous Sediment FEW (NEGATIVE) Urine Bacteria 1+ H (NEGATIVE) Urine Mucus FEW (NONE-MOD) Urine HCG, Qual NEGATIVE (NEGATIVE) Departure - Departure Time of Disposition: 13:44 Disposition: Home, Self-Care 01 Condition: Good Clinical Impression: UTI (urinary tract infection) Qualifiers: Urinary tract infection type: acute cystitis Hematuria presence: without hematuria Qualified Code(s): N30.00 - Acute cystitis without hematuria - Discharge Information Referrals: Roxy Lamas NP [Primary Care Provider] - Forms: ED Department Discharge Additional Instructions: The following information is given to patients seen in the emergency department who are being discharged to home. This information is to outline your options for follow-up care. We provide all patients seen in our emergency department with a follow-up referral. The need for follow-up, as well as the timing and circumstances, are variable depending upon the specifics of your emergency department visit. If you don't have a primary care physician on staff, we will provide you with a referral. We always advise you to contact your personal physician following an emergency department visit to inform them of the circumstance of the visit and for follow-up with them and/or the need for any referrals to a consulting specialist. The emergency department will also refer you to a specialist when appropriate. This referral assures that you have the opportunity for follow-up care with a specialist. All of these measure are taken in an effort to provide you with optimal care, which includes your follow-up. Under all circumstances we always encourage you to contact your private physician who remains a resource for coordinating your care. When calling for follow-up care, please make the office aware that this follow-up is from your recent emergency room visit. If for any reason you are refused follow-up, please contact the [facility] Emergency Department at and asked to speak to the emergency department charge nurse. [facility] [address] [place] [address] [id number] Drink plenty of fluids and take antibiotic as directed. Follow up with primary care provider Return to ED as needed as discussed - My Orders Last 24 Hours: My Active Orders 05/03/19 13:02 CULTURE URINE [RM] Stat UA W/MICROSCOPIC [URIN] Stat - Assessment/Plan Last 24 Hours: My Active Orders 05/03/19 13:02 CULTURE URINE [RM] Stat UA W/MICROSCOPIC [URIN] Stat
== END 2019-05-03 14:00 | disposition home or self-care (01) ==
LOC: MW.ED 12:41
DX: N30.00 Acute cystitis without hematuria (principal)
CPT/HCPCS: 81001; 81025; 87086; 99283

== ENCOUNTER 2019-05-05 18:59 | Emergency (ER) | payer BC ==
[2019-05-05] MEDS ORDERED: Sodium Chloride 0.9% 1,000 ML IV ONE (19:03)
--- NOTE | 2019-05-05 19:06 | EDM.PDOC ---
ED HPI GENERAL MEDICAL PROBLEM - General Chief Complaint: Abdominal Pain Stated Complaint: ABDOMINAL PAIN, VOMITING Time Seen by Provider: 05/05/19 19:01 Source of Information: Reports: Patient History Limitations: Reports: No Limitations - History of Present Illness INITIAL COMMENTS - FREE TEXT/NARRATIVE: HISTORY AND PHYSICAL: History of present illness: Patient is a 24-year-old female that presented to the emergency room for "abdominal pain". Patient states that she had severe lower abdominal pain this afternoon which made her "double over, become nauseous, and puke". She states she also had to run to the bathroom as she has "diarrhea". She currently rates her lower abdominal pain at a 6 out of 10 and describes it as "sharp" and bilateral. She states she also felt lightheaded today and had a headache over the last couple days. Patient was seen on 05/03/2019 for complaints of dysuria. She had positive for UTI and treated with Macrobid. Urine culture shows no growth. Patient reports she did not picker / packer antibiotic, as she doesn't "have insurance". Patient denies any fever, chills, change in vision, syncope or near syncope. Denies any chest pain, back pain, shortness of breath or cough. Denies any constipation or dysuria. Has not noted any blood in urine or stool. Patient has been eating and drinking appropriately. Review of systems: As per history of present illness and below otherwise all systems reviewed and negative. Past medical history: As per history of present illness and as reviewed below otherwise noncontributory. Surgical history: As per history of present illness and as reviewed below otherwise noncontributory. Social history: See social history for further information Family history: As per history of present illness and as reviewed below otherwise noncontributory. Physical exam: General: Patient is a well-nourished and well-developed 24-year-old female. Alert and orientated. Nontoxic in appearance and in no acute distress. HEENT: Atraumatic, normocephalic, pupils equal and reactive bilaterally, negative for conjunctival pallor or scleral icterus, mucous membranes moist, TMs normal bilaterally, throat clear, neck supple, nontender, trachea midline. No drooling or trismus noted. No meningeal signs. No hot potato voice noted. Lungs: Clear to auscultation, breath sounds equal bilaterally, chest nontender. Heart: S1S2, regular rate and rhythm without overt murmur Abdomen: Soft, nondistended, pain palpation in the left lower and right lower quadrant. Negative for masses or hepatosplenomegaly. Left sided costovertebral tenderness. Pelvis: Stable nontender. Genitourinary: Deferred. Skin: Intact, warm, dry. No lesions or rashes noted. Extremities: Atraumatic, moves all extremities per self without difficulty or deficits, negative for cords or calf pain. Neurovascular unremarkable. Neuro: Awake, alert, oriented. Cranial nerves II through XII unremarkable. Cerebellum unremarkable. Motor and sensory unremarkable throughout. Exam nonfocal. Notes: LMP 2 weeks ago, her on 05/03/2019 was negative. Lab work is unremarkable. Patient's report that she cannot afford any antibiotics, and never filled her prescription. Patient's urine is unremarkable at this time. Her previous urine had 50-70 WBCs, with +1 Bacteria. Her previous urine as she stated she never filled her antibiotics with a course of Cipro. Her physical examination correlated with a UTI/pyelonephritis. Signs and symptoms that would prompt her to return to the emergency room were reviewed and discussed. Supportive care measures were reviewed and discussed. Voices understanding and is agreeable to plan of care. Denies any further questions or concerns at this time. Diagnostics: CBC, CMP, UA, Therapeutics: IV fluid, Rocephin, Zofran, Toradol Prescription: Cipro (susan care- provided to patient) Impression: Pyelonephritis, left Plan: 1. Increase your oral fluids. 2. Take the antibiotic that has been given to you. 3. Tylenol and/or Ibuprofen as needed. 4. Follow up with your primary care as discussed. Return to the ED as needed and as discussed. Definitive disposition and diagnosis as appropriate pending reevaluation and review of above. Lower Abdomen Pain Score (Numeric/FACES): 6 - Related Data Allergies Allergy/AdvReac Type Severity Reaction Status Date / Time No Known Allergies Allergy Verified 05/05/19 19:09 Home Meds: Home Meds Nitrofurantoin Monohyd/M-Cryst [Macrobid 100 mg Capsule] 100 mg PO BID 7 Days # 14 capsule 05/03/19 [Rx] Ondansetron [Zofran ODT] 4 mg PO Q6H PRN #10 tab.dis 05/03/19 [Rx] Past Medical History - Past Health History Medical/Surgical History: Denies Medical/Surgical History HEENT History: Reports: None Cardiovascular History: Reports: None Respiratory History: Reports: None Gastrointestinal History: Reports: None Genitourinary History: Reports: None 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 Musculoskeletal History: Reports: None Neurological History: Reports: None Psychiatric History: Reports: None Endocrine/Metabolic History: Reports: None Hematologic History: Reports: None Immunologic History: Reports: None Oncologic (Cancer) History: Reports: None Dermatologic History: Reports: None - Infectious Disease History Infectious Disease History: Reports: None - Past Surgical History Head Surgeries/Procedures: Reports: None HEENT Surgical History: Reports: Adenoidectomy Social & Family History - Family History Family Medical History: Noncontributory Endocrine/Metabolic: Reports: Diabetes, Type I Oncologic: Reports: Leukemia - Caffeine Use Caffeine Use: Reports: Coffee, Soda ED ROS GENERAL - Review of Systems Review Of Systems: ROS reveals no pertinent complaints other than HPI. ED EXAM, GI/ABD - Physical Exam Exam: See Below (See dictation) Course - Vital Signs Last Recorded V/S: Last Vital Signs Temp 96.9 F 05/05/19 21:47 Pulse 63 05/05/19 21:47 Resp 17 05/05/19 21:47 BP 121/67 05/05/19 21:47 Pulse Ox 99 05/05/19 21:47 - Orders/Labs/Meds Labs: Laboratory Tests 05/05/19 05/05/19 05/05/19 Range/Units 19:18 19:18 21:02 WBC 10.92 (4.0-11.0) K/uL RBC 4.67 (4.30-5.90) M/uL Hgb 13.0 (12.0-16.0) g/dL Hct 40.2 (36.0-46.0) % MCV 86.1 (80.0-98.0) fL MCH 27.8 (27.0-32.0) pg MCHC 32.3 (31.0-37.0) g/dL RDW Std Deviation 42.6 (28.0-62.0) fl RDW Coeff of Sherita 14 (11.0-15.0) % Plt Count 333 (150-400) K/uL MPV 10.60 (7.40-12.00) fL Neut % (Auto) 67.9 (48.0-80.0) % Lymph % (Auto) 23.6 (16.0-40.0) % [place]ane % (Auto) 5.4 (0.0-15.0) % Eos % (Auto) 2.7 (0.0-7.0) % Baso % (Auto) 0.4 (0.0-1.5) % Neut # (Auto) 7.4 H (1.4-5.7) K/uL Lymph # (Auto) 2.6 H (0.6-2.4) K/uL [place]ane # (Auto) 0.6 (0.0-0.8) K/uL Eos # (Auto) 0.3 (0.0-0.7) K/uL Baso # (Auto) 0.0 (0.0-0.1) K/uL Nucleated RBC % 0.0 /100WBC Nucleated RBCs # 0 K/uL Sodium 143 (136-145) mmol/L Potassium 3.8 (3.5-5.1) mmol/L Chloride 107 (98-107) mmol/L Carbon Dioxide 25.4 (21.0-32.0) mmol/L BUN 15 (7.0-18.0) mg/dL Creatinine 1.0 (0.6-1.0) mg/dL Est Cr Clr Drug Dosing 85.09 mL/min Estimated GFR (MDRD) > 60.0 ml/min Glucose 121 H (74-106) mg/dL Calcium 8.7 (8.5-10.1) mg/dL Total Bilirubin 0.2 (0.2-1.0) mg/dL AST 22 (15-37) IU/L ALT 34 (14-63) IU/L Alkaline Phosphatase 68 (46-116) U/L Total Protein 7.2 (6.4-8.2) g/dL Albumin 3.6 (3.4-5.0) g/dL Globulin 3.6 (2.6-4.0) g/dL Albumin/Globulin Ratio 1.0 (0.9-1.6) Urine Color YELLOW Urine Appearance CLEAR Urine pH 6.5 (5.0-8.0) Ur Specific [place] 1.020 (1.001-1.035) Urine Protein NEGATIVE (NEGATIVE) mg/dL Urine Glucose (UA) NEGATIVE (NEGATIVE) mg/dL Urine Ketones NEGATIVE (NEGATIVE) mg/dL Urine Occult Blood NEGATIVE (NEGATIVE) Urine Nitrite NEGATIVE (NEGATIVE) Urine Bilirubin NEGATIVE (NEGATIVE) Urine Urobilinogen 0.2 (<2.0) EU/dL Ur Leukocyte Esterase NEGATIVE (NEGATIVE) Meds: Medications Discontinued Medications Generic Name Dose Route Start Last Admin Trade Name Freq PRN Reason Stop Dose Admin Hydrocodone Bitart/Acetaminophen 1 tab 05/05/19 21:29 05/05/19 21:58 [place] 325-5 Mg PO 05/05/19 21:30 1 tab ONETIME ONE Administration Sodium Chloride 1,000 mls @ 999 mls/hr 05/05/19 19:03 05/05/19 19:22 Normal Saline IV 05/05/19 20:03 999 mls/hr STAT ONE Administration Ceftriaxone Sodium/Dextrose 1 50 mls @ 100 mls/hr 05/05/19 19:08 05/05/19 19: 27 gm/ Premix IV 05/05/19 19:37 100 mls/hr ONETIME ONE Administration Ketorolac Tromethamine 30 mg 05/05/19 19:08 05/05/19 19:25 Toradol IVPUSH 05/05/19 19:09 30 mg ONETIME ONE Administration Ondansetron HCl 4 mg 05/05/19 19:08 05/05/19 19:27 Zofran IVPUSH 05/05/19 19:09 4 mg ONETIME ONE Administration Departure - Departure Time of Disposition: 21:28 Disposition: Home, Self-Care 01 Clinical Impression: Pyelonephritis Abdominal pain Qualifiers: Abdominal location: lower abdomen, unspecified Qualified Code(s): R10.30 - Lower abdominal pain, unspecified - Discharge Information Instructions: Pyelonephritis, Adult Referrals: Roxy Lamas NP [Primary Care Provider] - Forms: ED Department Discharge Additional Instructions: The following information is given to patients seen in the emergency department who are being discharged to home. This information is to outline your options for follow-up care. We provide all patients seen in our emergency department with a follow-up referral. The need for follow-up, as well as the timing and circumstances, are variable depending upon the specifics of your emergency department visit. If you don't have a primary care physician on staff, we will provide you with a referral. We always advise you to contact your personal physician following an emergency department visit to inform them of the circumstance of the visit and for follow-up with them and/or the need for any referrals to a consulting specialist. The emergency department will also refer you to a specialist when appropriate. This referral assures that you have the opportunity for follow-up care with a specialist. All of these measure are taken in an effort to provide you with optimal care, which includes your follow-up. Under all circumstances we always encourage you to contact your private physician who remains a resource for coordinating your care. When calling for follow-up care, please make the office aware that this follow-up is from your recent emergency room visit. If for any reason you are refused follow-up, please contact the [facility] Emergency Department at and asked to speak to the emergency department charge nurse. [facility] [address] [place] [id number] [facility] [address] [place] [id number] 1. Increase your oral fluids. 2. Take the antibiotic that has been given to you. 3. Tylenol and/or Ibuprofen as needed. 4. Follow up with your primary care as discussed. Return to the ED as needed and as discussed.
[2019-05-05] MEDS ORDERED: Ondansetron 4 MG/2 ML SDV IVPUSH ONE (19:08)
[2019-05-05] MEDS ORDERED: Ketorolac 30 MG/ML SDV IVPUSH ONE (19:08)
[2019-05-05] MEDS ORDERED: cefTRIAXone 1 GM in Premix Bag 1 BAG IV ONE (19:08)
[2019-05-05 19:57] LABS: BLOOD UREA NITROGEN,BUN 15 mg/dL (7.0-18.0); CARBON DIOXIDE,CO2 25.4 mmol/L (21.0-32.0); CHLORIDE,CL 107 mmol/L (98-107); GLUCOSE RANDOM 121 mg/dL (74-106); POTASSIUM,K 3.8 mmol/L (3.5-5.1); SODIUM,NA 143 mmol/L (136-145)
[2019-05-05] MEDS ORDERED: Acetaminophen/HYDROcodone 325-5 MG Tab PO ONE (21:29)
== END 2019-05-05 22:09 | disposition home or self-care (01) ==
LOC: MW.ED 18:59
DX: N12 Tubulo-interstitial nephritis, not specified as acute or chronic (principal)
CPT/HCPCS: 36415; 80053; 81003; 85025; 96361; 96365; 96375; 99284; A9270; J0696; J1885; J2405; J7040

== ENCOUNTER 2019-07-02 08:44 | Emergency (ER) | payer BC ==
[2019-07-02] MEDS ORDERED: Levofloxacin 500 MG Tab PO ONE (10:19)
--- NOTE | 2019-07-02 10:39 | EDM.PDOC ---
ED HPI GENERAL MEDICAL PROBLEM - General Chief Complaint: General Stated Complaint: SICK Time Seen by Provider: 07/02/19 10:36 Source of Information: Reports: Patient - History of Present Illness INITIAL COMMENTS - FREE TEXT/NARRATIVE: HISTORY AND PHYSICAL: History of present illness: []Showing presents with subjective fever and general malaise mild sore throat mild dysuria no current fever nausea vomiting chills sweats symptoms for 4-6 hours Distress nontoxic appearing Review of systems: As per history of present illness and below otherwise all systems reviewed and negative. Past medical history: As per history of present illness and as reviewed below otherwise noncontributory. Surgical history: As per history of present illness and as reviewed below otherwise noncontributory. Social history: No reported history of drug or alcohol abuse. Family history: As per history of present illness and as reviewed below otherwise noncontributory. Physical exam: HEENT: Atraumatic, normocephalic, pupils reactive, negative for conjunctival pallor or scleral icterus, mucous membranes moist, throat clear, neck supple, nontender, trachea midline. Mild erythema no exudates tympanic membranes mildly injected meningeal signs Lungs: Clear to auscultation, breath sounds equal bilaterally, chest nontender. Heart: S1S2, regular, negative for clicks, rubs, or JVD. Abdomen: Soft, nondistended, nontender. Negative for masses or hepatosplenomegaly. Negative for costovertebral tenderness. Pelvis: Stable nontender. Genitourinary: Deferred. Rectal: Deferred. Extremities: Atraumatic, negative for cords or calf pain. Neurovascular unremarkable. Neuro: Awake, alert, oriented. Cranial nerves II through XII unremarkable. Cerebellum unremarkable. Motor and sensory unremarkable throughout. Exam nonfocal. Diagnostics: [Lens a strep UA hCG ] Therapeutics: [Levaquin ] Impression: [Viral syndrome Dysuria pharyngitis Definitive disposition and diagnosis as appropriate pending reevaluation and review of above. generalized Pain Score (Numeric/FACES): 7 - Related Data Allergies Allergy/AdvReac Type Severity Reaction Status Date / Time No Known Allergies Allergy Verified 07/02/19 09:02 Home Meds: Home Meds . [No Known Home Meds] 07/02/19 [History] Past Medical History - Past Health History Medical/Surgical History: Denies Medical/Surgical History HEENT History: Reports: None Cardiovascular History: Reports: None Respiratory History: Reports: None Gastrointestinal History: Reports: None Genitourinary History: Reports: None [employer] LIQUID History: Reports: None Musculoskeletal History: Reports: None Neurological History: Reports: None Psychiatric History: Reports: None Endocrine/Metabolic History: Reports: None Hematologic History: Reports: None Immunologic History: Reports: None Oncologic (Cancer) History: Reports: None Dermatologic History: Reports: None - Infectious Disease History Infectious Disease History: Reports: None - Past Surgical History Head Surgeries/Procedures: Reports: None HEENT Surgical History: Reports: Adenoidectomy Social & Family History - Family History Family Medical History: Noncontributory Endocrine/Metabolic: Reports: Diabetes, Type I Oncologic: Reports: Leukemia - Tobacco Use Smoking Status *Q: Never Smoker - Caffeine Use Caffeine Use: Reports: Coffee, Soda - Recreational Drug Use Recreational Drug Use: No ED ROS GENERAL - Review of Systems Review Of Systems: See Below ED EXAM, GENERAL - Physical Exam Exam: See Below Course - Vital Signs Last Recorded V/S: Last Vital Signs Temp 98.5 F 07/02/19 08:59 Pulse 113 H 07/02/19 10:21 Resp 16 07/02/19 10:21 BP 132/74 07/02/19 10:21 Pulse Ox 98 07/02/19 10:21 - Orders/Labs/Meds Orders: Active Orders 24 hr Category Date Time Status CULTURE STREP A CONFIRMATION [] Stat Lab 07/02/19 09:36 Results STREP SCRN A RAPID W CULT CONF [RM] Stat Lab 07/02/19 09:36 Results Labs: Laboratory Tests 07/02/19 07/02/19 Range/Units 09:25 09:25 Urine Color YELLOW Urine Appearance CLEAR Urine pH 7.5 (5.0-8.0) Ur Specific [place] 1.020 (1.001-1.035) Urine Protein NEGATIVE (NEGATIVE) mg/dL Urine Glucose (UA) NEGATIVE (NEGATIVE) mg/dL Urine Ketones TRACE H (NEGATIVE) mg/dL Urine Occult Blood TRACE-INTACT H (NEGATIVE) Urine Nitrite NEGATIVE (NEGATIVE) Urine Bilirubin NEGATIVE (NEGATIVE) Urine Urobilinogen 1.0 (<2.0) EU/dL Ur Leukocyte Esterase NEGATIVE (NEGATIVE) Urine RBC 0-2 (0-2/HPF) Urine WBC 0-2 (0-5/HPF) Ur Epithelial Cells FEW (NONE-FEW) Urine Bacteria FEW (NEGATIVE) Urine HCG, Qual NEGATIVE (NEGATIVE) Meds: Medications Discontinued Medications Generic Name Dose Route Start Last Admin Trade Name Gama PRN Reason Stop Dose Admin Levofloxacin 500 mg 07/02/19 10:19 07/02/19 10:28 Levaquin PO 07/02/19 10:20 500 mg ONETIME ONE Administration Departure - Departure Time of Disposition: 10:38 Disposition: Home, Self-Care 01 Condition: Good Clinical Impression: Viral syndrome - Discharge Information Referrals: Roxy Lamas NP [Primary Care Provider] - Additional Instructions: Tatian as prescribed [id number] symptomatic therapies as discussed Return if symptoms persist or worsen Work note for 48 hours Follow-up with primary care 2 weeks sooner as needed The following information is given to patients seen in the emergency department who are being discharged to home. This information is to outline your options for follow-up care. We provide all patients seen in our emergency department with a follow-up referral. The need for follow-up, as well as the timing and circumstances, are variable depending upon the specifics of your emergency department visit. If you don't have a primary care physician on staff, we will provide you with a referral. We always advise you to contact your personal physician following an emergency department visit to inform them of the circumstance of the visit and for follow-up with them and/or the need for any referrals to a consulting specialist. The emergency department will also refer you to a specialist when appropriate. This referral assures that you have the opportunity for follow-up care with a specialist. All of these measure are taken in an effort to provide you with optimal care, which includes your follow-up. Under all circumstances we always encourage you to contact your private physician who remains a resource for coordinating your care. When calling for follow-up care, please make the office aware that this follow-up is from your recent emergency room visit. If for any reason you are refused follow-up, please contact the [facility] emergency department at and asked to speak to the emergency department charge nurse. - My Orders Last 24 Hours: My Active Orders 07/02/19 09:36 CULTURE STREP A CONFIRMATION [RM] Stat STREP SCRN A RAPID W CULT CONF [] Stat - Assessment/Plan Last 24 Hours: My Active Orders 07/02/19 09:36 CULTURE STREP A CONFIRMATION [RM] Stat STREP SCRN A RAPID W CULT CONF [RM] Stat
== END 2019-07-02 10:46 | disposition home or self-care (01) ==
LOC: MW.ED 08:44
DX: B34.9 Viral infection, unspecified (principal); J02.9 Acute pharyngitis, unspecified; R30.0 Dysuria; Z98.890 Other specified postprocedural states
CPT/HCPCS: 81001; 81025; 87081; 87804; 87880; 99283; A9270

== ENCOUNTER 2019-07-04 01:27 | Observation (INO) | payer BC ==
--- NOTE | 2019-07-04 01:53 | EDM.PDOC ---
ED HPI GENERAL MEDICAL PROBLEM - General Chief Complaint: General Stated Complaint: FEVER, ACHES Time Seen by Provider: 07/04/19 01:52 Source of Information: Reports: Patient - History of Present Illness INITIAL COMMENTS - FREE TEXT/NARRATIVE: HISTORY AND PHYSICAL: History of present illness: [Patient presents with fever or sore throat general malaise she was seen 2 days prior and started on Levaquin on arrival she is tachycardic she complains of sore throat but also has crackles on the right lower lung base, although no cough no chills or sweats vague abdominal pain ] Review of systems: As per history of present illness and below otherwise all systems reviewed and negative. Past medical history: As per history of present illness and as reviewed below otherwise noncontributory. Surgical history: As per history of present illness and as reviewed below otherwise noncontributory. Social history: No reported history of drug or alcohol abuse. Family history: As per history of present illness and as reviewed below otherwise noncontributory. Physical exam: HEENT: Atraumatic, normocephalic, pupils reactive, negative for conjunctival pallor or scleral icterus, mucous membranes moist, throat clear, neck supple, nontender, trachea midline. Lungs: Honorio at right lung base, breath sounds equal bilaterally, chest nontender. Heart: S1S2, regular, negative for clicks, rubs, or JVD. Abdomen: Soft, nondistended, tenderness. Negative for masses or hepatosplenomegaly. Negative for costovertebral tenderness. Pelvis: Stable nontender. Genitourinary: Deferred. Rectal: Deferred. Extremities: Atraumatic, negative for cords or calf pain. Neurovascular unremarkable. Neuro: Awake, alert, oriented. Cranial nerves II through XII unremarkable. Cerebellum unremarkable. Motor and sensory unremarkable throughout. Exam nonfocal. Diagnostics: [CBC CMP UA hCG CT abdomen pelvis no contrast Chest 1 view Blood cultures 2 ] Therapeutics: saline vancomycin and Zosyn [] Impression: [ lower lobe pneumonia Fever Tachycardia hematuria ] Definitive disposition and diagnosis as appropriate pending reevaluation and review of above. Headache Pain Score (Numeric/FACES): 8 Throat Pain Score (Numeric/FACES): 8 - Related Data Allergies Allergy/AdvReac Type Severity Reaction Status Date / Time No Known Allergies Allergy Verified 07/04/19 08:36 Home Meds: Home Meds Acetaminophen [Tylenol] 650 mg PO Q4H PRN tablet 07/07/19 [Rx] Acyclovir 400 mg PO TID #30 tablet 07/07/19 [Rx] Alum Hydrox/Mag Hydrox/Simeth [Maalox Advanced] 10 ml PO 6XDAY PRN #500 ml 07/07 [Rx] Azithromycin 500 mg PO DAILY #3 tablet 07/07/19 [Rx] Benzocaine/Menthol [Cepacol Sore Throat Lozenge] 1 each MM Q2H #1 box 07/07/19 [ Rx] Cefdinir 300 mg PO BID #6 capsule 07/07/19 [Rx] Ibuprofen [Motrin] 600 mg PO Q6H PRN #1 tab 07/07/19 [Rx] oxyCODONE 5 mg PO Q8H PRN #10 tablet 07/07/19 [Rx] Past Medical History - Past Health History Medical/Surgical History: Denies Medical/Surgical History HEENT History: Reports: None Cardiovascular History: Reports: None Respiratory History: Reports: None Gastrointestinal History: Reports: None Genitourinary History: Reports: None [employer] History: Reports: None Musculoskeletal History: Reports: None Neurological History: Reports: None Psychiatric History: Reports: Anxiety, Depression, PTSD Endocrine/Metabolic History: Reports: None Hematologic History: Reports: None Immunologic History: Reports: None Oncologic (Cancer) History: Reports: None Dermatologic History: Reports: None - Infectious Disease History Infectious Disease History: Reports: None - Past Surgical History Head Surgeries/Procedures: Reports: None HEENT Surgical History: Reports: Adenoidectomy, Oral Surgery Social & Family History - Family History Family Medical History: Noncontributory Endocrine/Metabolic: Reports: Diabetes, Type I Oncologic: Reports: Leukemia - Tobacco Use Smoking Status *Q: Former Smoker Used Tobacco, but Quit: Yes Month/Year Tobacco Last Used: 2018 - Caffeine Use Caffeine Use: Reports: Coffee, Energy Drinks - Recreational Drug Use Recreational Drug Use: No ED ROS GENERAL - Review of Systems Review Of Systems: See Below ED EXAM, GENERAL - Physical Exam Exam: See Below Course - Vital Signs Last Recorded V/S: Last Vital Signs Temp 97.4 F 07/07/19 07:55 Pulse 83 07/07/19 07:55 Resp 16 07/07/19 07:55 BP 138/80 07/07/19 07:55 Pulse Ox 95 07/07/19 07:55 - Orders/Labs/Meds Labs: Laboratory Tests 07/04/19 07/04/19 07/04/19 Range/Units 01:45 01:45 02:00 WBC 9.90 (4.0-11.0) K/uL RBC 4.74 (4.30-5.90) M/uL Hgb 13.3 (12.0-16.0) g/dL Hct 40.1 (36.0-46.0) % MCV 84.6 (80.0-98.0) fL MCH 28.1 (27.0-32.0) pg MCHC 33.2 (31.0-37.0) g/dL RDW Std Deviation 39.7 (28.0-62.0) fl RDW Coeff of Sherita 13 (11.0-15.0) % Plt Count 252 (150-400) K/uL MPV 10.40 (7.40-12.00) fL Neut % (Auto) 74.8 (48.0-80.0) % Lymph % (Auto) 11.4 L (16.0-40.0) % Pepin % (Auto) 13.1 (0.0-15.0) % Eos % (Auto) 0.5 (0.0-7.0) % Baso % (Auto) 0.2 (0.0-1.5) % Neut # (Auto) 7.4 H (1.4-5.7) K/uL Lymph # (Auto) 1.1 (0.6-2.4) K/uL Pepin # (Auto) 1.3 H (0.0-0.8) K/uL Eos # (Auto) 0.1 (0.0-0.7) K/uL Baso # (Auto) 0.0 (0.0-0.1) K/uL Nucleated RBC % 0.0 /100WBC Nucleated RBCs # 0 K/uL Lactate (0.20-2.00) mmol/L Sodium (136-145) mmol/L Potassium (3.5-5.1) mmol/L Chloride (98-107) mmol/L Carbon Dioxide (21.0-32.0) mmol/L BUN (7.0-18.0) mg/dL Creatinine (0.6-1.0) mg/dL Est Cr Clr Drug Dosing mL/min Estimated GFR (MDRD) ml/min Glucose (74-106) mg/dL Calcium (8.5-10.1) mg/dL Total Bilirubin (0.2-1.0) mg/dL AST (15-37) IU/L ALT (14-63) IU/L Alkaline Phosphatase (46-116) U/L Total Protein (6.4-8.2) g/dL Albumin (3.4-5.0) g/dL Globulin (2.6-4.0) g/dL Albumin/Globulin Ratio (0.9-1.6) Urine Color YELLOW Urine Appearance SLT CLOUDY Urine pH 5.5 (5.0-8.0) Ur Specific [place] 1.025 (1.001-1.035) Urine Protein NEGATIVE (NEGATIVE) mg/dL Urine Glucose (UA) NEGATIVE (NEGATIVE) mg/dL Urine Ketones NEGATIVE (NEGATIVE) mg/dL Urine Occult Blood MODERATE H (NEGATIVE) Urine Nitrite NEGATIVE (NEGATIVE) Urine Bilirubin NEGATIVE (NEGATIVE) Urine Urobilinogen 0.2 (<2.0) EU/dL Ur Leukocyte Esterase NEGATIVE (NEGATIVE) Urine RBC 1-3 (0-2/HPF) Urine WBC 1-3 (0-5/HPF) Ur Epithelial Cells MANY (NONE-FEW) Urine Bacteria 1+ H (NEGATIVE) Urine HCG, Qual NEGATIVE (NEGATIVE) 07/04/19 07/04/19 Range/Units 02:00 02:00 WBC (4.0-11.0) K/uL RBC (4.30-5.90) M/uL Hgb (12.0-16.0) g/dL Hct (36.0-46.0) % MCV (80.0-98.0) fL MCH (27.0-32.0) pg MCHC (31.0-37.0) g/dL RDW Std Deviation (28.0-62.0) fl RDW Coeff of Sherita (11.0-15.0) % Plt Count (150-400) K/uL MPV (7.40-12.00) fL Neut % (Auto) (48.0-80.0) % Lymph % (Auto) (16.0-40.0) % Pepin % (Auto) (0.0-15.0) % Eos % (Auto) (0.0-7.0) % Baso % (Auto) (0.0-1.5) % Neut # (Auto) (1.4-5.7) K/uL Lymph # (Auto) (0.6-2.4) K/uL Pepin # (Auto) (0.0-0.8) K/uL Eos # (Auto) (0.0-0.7) K/uL Baso # (Auto) (0.0-0.1) K/uL Nucleated RBC % /100WBC Nucleated RBCs # K/uL Lactate 0.8 (0.20-2.00) mmol/L Sodium 138 (136-145) mmol/L Potassium 4.0 (3.5-5.1) mmol/L Chloride 101 (98-107) mmol/L Carbon Dioxide 25.2 (21.0-32.0) mmol/L BUN 11 (7.0-18.0) mg/dL Creatinine 1.1 H (0.6-1.0) mg/dL Est Cr Clr Drug Dosing 77.35 mL/min Estimated GFR (MDRD) > 60.0 ml/min Glucose 111 H (74-106) mg/dL Calcium 8.8 (8.5-10.1) mg/dL Total Bilirubin 0.4 (0.2-1.0) mg/dL AST 22 (15-37) IU/L ALT 34 (14-63) IU/L Alkaline Phosphatase 66 (46-116) U/L Total Protein 7.8 (6.4-8.2) g/dL Albumin 3.7 (3.4-5.0) g/dL Globulin 4.1 H (2.6-4.0) g/dL Albumin/Globulin Ratio 0.9 (0.9-1.6) Urine Color Urine Appearance Urine pH (5.0-8.0) Ur Specific [place] (1.001-1.035) Urine Protein (NEGATIVE) mg/dL Urine Glucose (UA) (NEGATIVE) mg/dL Urine Ketones (NEGATIVE) mg/dL Urine Occult Blood (NEGATIVE) Urine Nitrite (NEGATIVE) Urine Bilirubin (NEGATIVE) Urine Urobilinogen (<2.0) EU/dL Ur Leukocyte Esterase (NEGATIVE) Urine RBC (0-2/HPF) Urine WBC (0-5/HPF) Ur Epithelial Cells (NONE-FEW) Urine Bacteria (NEGATIVE) Urine HCG, Qual (NEGATIVE) Meds: Medications Discontinued Medications Generic Name Dose Route Start Last Admin Trade Name Freq PRN Reason Stop Dose Admin Acetaminophen 1,000 mg 07/04/19 03:42 07/04/19 03:46 Tylenol Extra Strength PO 07/04/19 03:43 1,000 mg ONETIME ONE Administration Acetaminophen Confirm 07/04/19 03:44 07/04/19 04:15 Tylenol Extra Strength Administered 07/04/19 03:45 Not Given Dose 1,000 mg .ROUTE .STK-MED ONE Acetaminophen 650 mg 07/04/19 07:40 07/06/19 02:57 Tylenol PO 650 mg Q4H PRN Administration Pain Acyclovir 400 mg 07/07/19 09:31 07/07/19 09:43 Zovirax PO 400 mg TID ZINA Administration Benzocaine/Menthol 1 lozenge 07/05/19 09:57 07/07/19 08:37 Cepacol Sore Throat MUCMEM 1 lozenge Q2H PRN Administration Sore Throat Lidocaine HCl 30 ml/ Al 0 ml 07/04/19 23:46 07/05/19 03:29 Hydroxide/Mg Hydroxide 30 ml/ PO 10 ml Diphenhydramine HCl 75 mg/ ASDIRECTED PRN Administration Nystatin 30 ml Pain Lidocaine HCl 30 ml/ Al 0 ml 07/05/19 03:24 07/07/19 13:06 Hydroxide/Mg Hydroxide 30 ml/ PO 10 ml Diphenhydramine HCl 75 mg/ 6XDAY PRN Administration Nystatin 30 ml Pain Diphenhydramine/Nystatin/Lidocaine 0 ml 07/04/19 18:02 Magic Mouthwash PO BID PRN Other Sodium Chloride 1,000 mls @ 999 mls/hr 07/04/19 01:54 07/04/19 02:15 Normal Saline IV 07/04/19 02:54 999 mls/hr STAT ONE Administration Piperacillin Sod/Tazobactam 50 mls @ 100 mls/hr 07/04/19 04:07 07/04/19 04:15 Sod 3.375 gm/ Sodium Chloride IV 07/04/19 04:36 100 mls/hr ONETIME ONE Administration Vancomycin HCl 1 gm/ Sodium 250 mls @ 166 mls/hr 07/04/19 04:08 07/04/19 04: 15 Chloride IV 07/04/19 05:38 166 mls/hr ONETIME ONE Administration Sodium Chloride 1,000 mls @ 999 mls/hr 07/04/19 05:45 07/04/19 06:49 Normal Saline IV 999 mls/hr ASDIRECTED ZINA Administration Sodium Chloride 1,000 mls @ 125 mls/hr 07/04/19 08:00 07/06/19 08:34 Normal Saline IV 125 mls/hr ASDIRECTED ZINA Administration Piperacillin Sod/Tazobactam 50 mls @ 100 mls/hr 07/04/19 13:30 07/04/19 13:05 Sod 3.375 gm/ Sodium Chloride IV 100 mls/hr Q8H ZINA Administration Vancomycin HCl 1 gm/ Sodium 250 mls @ 166.667 mls/hr 07/04/19 08:30 07/04/19 08:55 Chloride IV 07/04/19 09:59 166.667 mls/hr ONETIME ONE Administration Vancomycin HCl 1.75 gm/ Sodium 500 mls @ 250 mls/hr 07/04/19 16:30 Chloride IV Q8H ZINA Magnesium Sulfate 2 gm/ Premix 50 mls @ 50 mls/hr 07/04/19 10:20 07/04/19 10: 59 IV 07/04/19 11:19 50 mls/hr ONETIME ONE Administration Azithromycin 500 mg/ Sodium 250 mls @ 250 mls/hr 07/04/19 14:00 07/07/19 09: 05 Chloride IV 250 mls/hr DAILY ZINA Administration Ceftriaxone Sodium/Dextrose 1 50 mls @ 100 mls/hr 07/04/19 14:00 gm/ Premix IV Q24H ZINA Ceftriaxone Sodium/Dextrose 1 50 mls @ 100 mls/hr 07/04/19 15:00 07/06/19 14: 59 gm/ Premix IV 100 mls/hr Q24H ZINA Administration Sodium Chloride 1,000 mls @ 75 mls/hr 07/06/19 09:45 07/06/19 22:11 Normal Saline IV 75 mls/hr Q13H ZINA Administration Ibuprofen 400 mg 07/05/19 08:33 07/07/19 03:50 Motrin PO 400 mg Q4H PRN Administration Pain Oxycodone HCl 5 mg 07/05/19 08:34 07/07/19 13:05 Oxycodone PO 5 mg Q6H PRN Administration pain Vancomycin HCl 1 dose 07/04/19 05:45 Pharmacy To Dose - Vancomycin .XX ASDIRECTED ZINA Departure - Departure Time of Disposition: 07:57 Disposition: Refer to Observation Condition: Good Clinical Impression: Community acquired bacterial pneumonia - Discharge Information Sepsis Event Note - Focused Exam Date Exam was Performed: 07/08/19 Time Exam was Performed: 07:56
[2019-07-04] MEDS ORDERED: Sodium Chloride 0.9% 1,000 ML IV ONE (01:54)
[2019-07-04 02:34] LABS: BLOOD UREA NITROGEN,BUN 11 mg/dL (7.0-18.0); CARBON DIOXIDE,CO2 25.2 mmol/L (21.0-32.0); CHLORIDE,CL 101 mmol/L (98-107); GLUCOSE RANDOM 111 mg/dL (74-106); SODIUM,NA 138 mmol/L (136-145)
--- NOTE | 2019-07-04 03:00 | CR ---
Indication: Shortness of breath Technique: Chest 1 view Comparison: March 07, 2019 Findings/Impression: Stable cardiac size. Vague patchy opacity in the right lower lung field. This may represent atelectasis or infection. The left lung is clear. No effusion or pneumothorax. No acute osseous abnormality. Dictated by Mindy Foster MD @ Jul 04 2019 2:56AM Signed by Dr. Mindy Foster @ Jul 04 2019 2:57AM
--- NOTE | 2019-07-04 03:15 | CT ---
INDICATION: Right-sided pain with hematuria TECHNIQUE: CT abdomen and pelvis without contrast. COMPARISON: February 15, 2019 FINDINGS: Lower chest: Unremarkable. Liver: Unremarkable. Spleen: Unremarkable. Pancreas: Unremarkable. Gallbladder and bile ducts: Unremarkable. Adrenal glands: Unremarkable. Kidneys: Unremarkable. No kidney or ureteral stones and no hydronephrosis. GI tract: Unremarkable. Appendix is normal. Vascular structures: Unremarkable. Lymph nodes: Unremarkable. Miscellaneous: Unremarkable. No free air or significant free fluid. Pelvic Organs: Unremarkable. Bones: Unremarkable for age. IMPRESSION: Unremarkable noncontrast CT of the abdomen and pelvis. No urinary tract stones, hydronephrosis, or other cause for flank pain. No acute intra-abdominal inflammatory process identified. Please note that all CT scans at this facility use dose modulation, iterative reconstruction, and/or weight-based dosing when appropriate to reduce radiation dose to as low as reasonably achievable. Dictated by Mindy Foster MD @ Jul 04 2019 3:11AM Signed by Dr. Mindy Foster @ Jul 04 2019 3:14AM
[2019-07-04] MEDS ORDERED: Acetaminophen 500 MG Tab PO ONE (03:42)
[2019-07-04] MEDS ORDERED: Acetaminophen 500 MG Tab ONE (03:44)
[2019-07-04] MEDS ORDERED: Piperacillin/Tazobactam 3.375 GM in Sodium Chloride 0.9% 50 ML IV ONE (04:07)
[2019-07-04] MEDS ORDERED: Sodium Chloride 0.9% 1,000 ML IV SCH (05:45)
[2019-07-04] MEDS ORDERED: SODIUM CHLORIDE 0.9% IV ONE (06:00)
[2019-07-04] MEDS ORDERED: VANCOMYCIN IV ONE (06:00)
[2019-07-04 06:49] LABS: BLOOD UREA NITROGEN,BUN 9 mg/dL (7.0-18.0); CARBON DIOXIDE,CO2 22.3 mmol/L (21.0-32.0); CHLORIDE,CL 105 mmol/L (98-107); GLUCOSE RANDOM 99 mg/dL (74-106); POTASSIUM,K 4.1 mmol/L (3.5-5.1); SODIUM,NA 139 mmol/L (136-145)
[2019-07-04] MEDS: Sodium Chloride 0.9% 1,000 ML IV SCH ×2 (07:57→17:44)
[2019-07-04] MEDS ORDERED: Vancomycin 2 GM in Sodium Chloride 0.9% 500 ML IV ONE (08:00)
--- NOTE | 2019-07-04 09:41 | PCM.HP.2 ---
H&P History of Present Illness - General Date of Service: 07/04/19 Admit Problem/Dx: Admission Diagnosis/Problem Admission Diagnosis/Problem Pneumonia Source of Information: Patient - History of Present Illness Initial Comments - Free Text/Narative: Patient presents with fever and sore throat, generalized weakness, malaise for past few days. Patent states that she was seen 2 days prior and started on Levaquin which didnt help much. In ER patient was tachycardic. CXR was positive for right lower lobe PNA. Patient was admitted for management of vancomycin and Zoyn in ER, for failed outpatient treatment of PNA. Onset of Symptoms: Reports: Gradual Duration of Symptoms: Reports: Day(s): Location: Reports: Head, Face, Neck, Chest Headache Pain Score (Numeric/FACES): 8 - Related Data Allergies/Adverse Reactions: Allergies Allergy/AdvReac Type Severity Reaction Status Date / Time No Known Allergies Allergy Verified 07/04/19 08:36 Home Medications: Home Meds Levofloxacin [Levaquin] 500 mg PO DAILY 07/04/19 [History] Past Medical History - Past Health History Medical/Surgical History: Denies Medical/Surgical History HEENT History: Reports: None Cardiovascular History: Reports: None Respiratory History: Reports: None Gastrointestinal History: Reports: None Genitourinary History: Reports: None 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 Musculoskeletal History: Reports: None Neurological History: Reports: None Psychiatric History: Reports: Anxiety, Depression, PTSD Endocrine/Metabolic History: Reports: None Hematologic History: Reports: None Immunologic History: Reports: None Oncologic (Cancer) History: Reports: None Dermatologic History: Reports: None - Infectious Disease History Infectious Disease History: Reports: None - Past Surgical History Head Surgeries/Procedures: Reports: None HEENT Surgical History: Reports: Adenoidectomy, Oral Surgery Social & Family History - Family History Family Medical History: Noncontributory Endocrine/Metabolic: Reports: Diabetes, Type I Oncologic: Reports: Leukemia - Tobacco Use Smoking Status *Q: Former Smoker Years of Tobacco use: 6 Packs/Tins Daily: 0.5 Used Tobacco, but Quit: Yes Month/Year Tobacco Last Used: 12/2018 Tobacco Use Comment: quit cigarettes, still vapes Second Hand Smoke Exposure: No - Caffeine Use Caffeine Use: Reports: Coffee, Energy Drinks - Recreational Drug Use Recreational Drug Use: No H&P Review of Systems - Review of Systems: General: Reports: Fever, Chills, Malaise, Weakness, Fatigue, Night Sweats Pulmonary: Denies: Shortness of Breath, Wheezing, Pleuritic Chest Pain Cardiovascular: Reports: Dyspnea on Exertion. Denies: Chest Pain, Palpitations Gastrointestinal: Reports: Abdominal Pain. Denies: Anorexia, Black Stool Genitourinary: Denies: Dysuria, Frequency, Burning Musculoskeletal: Denies: Neck Pain, Shoulder Pain, Arm Pain Skin: Denies: Cyanosis, Jaundice, Mottled Psychiatric: Denies: Confusion, Depression, Mood Lability, Anxiety Neurological: Reports: Dizziness. Denies: Confusion, Headache, Numbness, Paresthesia Exam - Vital Signs Vital Signs: Last Vital Signs Temp 37.0 C 07/04/19 05:10 Pulse 113 H 07/04/19 05:00 Resp 17 07/04/19 05:00 BP 108/60 07/04/19 05:00 Pulse Ox 94 L 07/04/19 05:00 Weight: 124.8 kg - Exam General: Alert, Oriented, Cooperative HEENT: Hearing Intact, Nares Patent. No: Mucosa Moist & [place], Scleral Icterus Neck: Trachea Midline Lungs: Decreased Breath Sounds, Crackles Cardiovascular: Regular Rate, Regular Rhythm GI/Abdominal Exam: Normal Bowel Sounds, Soft, Non-Tender - Patient Data Lab Results Last 24 hrs: Laboratory Results - last 24 hr 07/04/19 07/04/19 07/04/19 Range/Units 01:45 01:45 02:00 WBC 9.90 (4.0-11.0) K/uL RBC 4.74 (4.30-5.90) M/uL Hgb 13.3 (12.0-16.0) g/dL Hct 40.1 (36.0-46.0) % MCV 84.6 (80.0-98.0) fL MCH 28.1 (27.0-32.0) pg MCHC 33.2 (31.0-37.0) g/dL RDW Std Deviation 39.7 (28.0-62.0) fl RDW Coeff of Sherita 13 (11.0-15.0) % Plt Count 252 (150-400) K/uL MPV 10.40 (7.40-12.00) fL Neut % (Auto) 74.8 (48.0-80.0) % Lymph % (Auto) 11.4 L (16.0-40.0) % [place] % (Auto) 13.1 (0.0-15.0) % Eos % (Auto) 0.5 (0.0-7.0) % Baso % (Auto) 0.2 (0.0-1.5) % Neut # (Auto) 7.4 H (1.4-5.7) K/uL Lymph # (Auto) 1.1 (0.6-2.4) K/uL [place] # (Auto) 1.3 H (0.0-0.8) K/uL Eos # (Auto) 0.1 (0.0-0.7) K/uL Baso # (Auto) 0.0 (0.0-0.1) K/uL Nucleated RBC % 0.0 /100WBC Nucleated RBCs # 0 K/uL Lactate (0.20-2.00) mmol/L Sodium (136-145) mmol/L Potassium (3.5-5.1) mmol/L Chloride (98-107) mmol/L Carbon Dioxide (21.0-32.0) mmol/L BUN (7.0-18.0) mg/dL Creatinine (0.6-1.0) mg/dL Est Cr Clr Drug Dosing mL/min Estimated GFR (MDRD) ml/min Glucose (74-106) mg/dL Calcium (8.5-10.1) mg/dL Phosphorus (2.6-4.7) mg/dL Magnesium (1.8-2.4) mg/dL Total Bilirubin (0.2-1.0) mg/dL AST (15-37) IU/L ALT (14-63) IU/L Alkaline Phosphatase (46-116) U/L Total Protein (6.4-8.2) g/dL Albumin (3.4-5.0) g/dL Globulin (2.6-4.0) g/dL Albumin/Globulin Ratio (0.9-1.6) Urine Color YELLOW Urine Appearance SLT CLOUDY Urine pH 5.5 (5.0-8.0) Ur Specific [place] 1.025 (1.001-1.035) Urine Protein NEGATIVE (NEGATIVE) mg/dL Urine Glucose (UA) NEGATIVE (NEGATIVE) mg/dL Urine Ketones NEGATIVE (NEGATIVE) mg/dL Urine Occult Blood MODERATE H (NEGATIVE) Urine Nitrite NEGATIVE (NEGATIVE) Urine Bilirubin NEGATIVE (NEGATIVE) Urine Urobilinogen 0.2 (<2.0) EU/dL Ur Leukocyte Esterase NEGATIVE (NEGATIVE) Urine RBC 1-3 (0-2/HPF) Urine WBC 1-3 (0-5/HPF) Ur Epithelial Cells MANY (NONE-FEW) Urine Bacteria 1+ H (NEGATIVE) Urine HCG, Qual NEGATIVE (NEGATIVE) 07/04/19 07/04/19 07/04/19 Range/Units 02:00 02:00 06:08 WBC 9.74 (4.0-11.0) K/uL RBC 4.30 (4.30-5.90) M/uL Hgb 11.9 L (12.0-16.0) g/dL Hct 36.4 (36.0-46.0) % MCV 84.7 (80.0-98.0) fL MCH 27.7 (27.0-32.0) pg MCHC 32.7 (31.0-37.0) g/dL RDW Std Deviation 40.8 (28.0-62.0) fl RDW Coeff of Sherita 13 (11.0-15.0) % Plt Count 233 (150-400) K/uL MPV 10.50 (7.40-12.00) fL Neut % (Auto) 73.3 (48.0-80.0) % Lymph % (Auto) 13.7 L (16.0-40.0) % [place] % (Auto) 12.7 (0.0-15.0) % Eos % (Auto) 0.2 (0.0-7.0) % Baso % (Auto) 0.1 (0.0-1.5) % Neut # (Auto) 7.1 H (1.4-5.7) K/uL Lymph # (Auto) 1.3 (0.6-2.4) K/uL [place] # (Auto) 1.2 H (0.0-0.8) K/uL Eos # (Auto) 0.0 (0.0-0.7) K/uL Baso # (Auto) 0.0 (0.0-0.1) K/uL Nucleated RBC % 0.0 /100WBC Nucleated RBCs # 0 K/uL Lactate 0.8 (0.20-2.00) mmol/L Sodium 138 (136-145) mmol/L Potassium 4.0 (3.5-5.1) mmol/L Chloride 101 (98-107) mmol/L Carbon Dioxide 25.2 (21.0-32.0) mmol/L BUN 11 (7.0-18.0) mg/dL Creatinine 1.1 H (0.6-1.0) mg/dL Est Cr Clr Drug Dosing 77.35 mL/min Estimated GFR (MDRD) > 60.0 ml/min Glucose 111 H (74-106) mg/dL Calcium 8.8 (8.5-10.1) mg/dL Phosphorus (2.6-4.7) mg/dL Magnesium (1.8-2.4) mg/dL Total Bilirubin 0.4 (0.2-1.0) mg/dL AST 22 (15-37) IU/L ALT 34 (14-63) IU/L Alkaline Phosphatase 66 (46-116) U/L Total Protein 7.8 (6.4-8.2) g/dL Albumin 3.7 (3.4-5.0) g/dL Globulin 4.1 H (2.6-4.0) g/dL Albumin/Globulin Ratio 0.9 (0.9-1.6) Urine Color Urine Appearance Urine pH (5.0-8.0) Ur Specific [place] (1.001-1.035) Urine Protein (NEGATIVE) mg/dL Urine Glucose (UA) (NEGATIVE) mg/dL Urine Ketones (NEGATIVE) mg/dL Urine Occult Blood (NEGATIVE) Urine Nitrite (NEGATIVE) Urine Bilirubin (NEGATIVE) Urine Urobilinogen (<2.0) EU/dL Ur Leukocyte Esterase (NEGATIVE) Urine RBC (0-2/HPF) Urine WBC (0-5/HPF) Ur Epithelial Cells (NONE-FEW) Urine Bacteria (NEGATIVE) Urine HCG, Qual (NEGATIVE) 07/04/19 07/04/19 Range/Units 06:08 06:33 WBC (4.0-11.0) K/uL RBC (4.30-5.90) M/uL Hgb (12.0-16.0) g/dL Hct (36.0-46.0) % MCV (80.0-98.0) fL MCH (27.0-32.0) pg MCHC (31.0-37.0) g/dL RDW Std Deviation (28.0-62.0) fl RDW Coeff of Sherita (11.0-15.0) % Plt Count (150-400) K/uL MPV (7.40-12.00) fL Neut % (Auto) (48.0-80.0) % Lymph % (Auto) (16.0-40.0) % [place] % (Auto) (0.0-15.0) % Eos % (Auto) (0.0-7.0) % Baso % (Auto) (0.0-1.5) % Neut # (Auto) (1.4-5.7) K/uL Lymph # (Auto) (0.6-2.4) K/uL [place] # (Auto) (0.0-0.8) K/uL Eos # (Auto) (0.0-0.7) K/uL Baso # (Auto) (0.0-0.1) K/uL Nucleated RBC % /100WBC Nucleated RBCs # K/uL Lactate (0.20-2.00) mmol/L Sodium 139 (136-145) mmol/L Potassium 4.1 (3.5-5.1) mmol/L Chloride 105 (98-107) mmol/L Carbon Dioxide 22.3 (21.0-32.0) mmol/L BUN 9 (7.0-18.0) mg/dL Creatinine 1.0 (0.6-1.0) mg/dL Est Cr Clr Drug Dosing 85.09 mL/min Estimated GFR (MDRD) > 60.0 ml/min Glucose 99 (74-106) mg/dL Calcium 8.1 L (8.5-10.1) mg/dL Phosphorus 4.0 (2.6-4.7) mg/dL Magnesium 1.6 L (1.8-2.4) mg/dL Total Bilirubin (0.2-1.0) mg/dL AST (15-37) IU/L ALT (14-63) IU/L Alkaline Phosphatase (46-116) U/L Total Protein (6.4-8.2) g/dL Albumin (3.4-5.0) g/dL Globulin (2.6-4.0) g/dL Albumin/Globulin Ratio (0.9-1.6) Urine Color YELLOW Urine Appearance CLEAR Urine pH 6.0 (5.0-8.0) Ur Specific [place] 1.020 (1.001-1.035) Urine Protein NEGATIVE (NEGATIVE) mg/dL Urine Glucose (UA) NEGATIVE (NEGATIVE) mg/dL Urine Ketones TRACE H (NEGATIVE) mg/dL Urine Occult Blood SMALL H (NEGATIVE) Urine Nitrite NEGATIVE (NEGATIVE) Urine Bilirubin NEGATIVE (NEGATIVE) Urine Urobilinogen 0.2 (<2.0) EU/dL Ur Leukocyte Esterase NEGATIVE (NEGATIVE) Urine RBC 0-2 (0-2/HPF) Urine WBC 0-1 (0-5/HPF) Ur Epithelial Cells OCCASIONAL (NONE-FEW) Urine Bacteria FEW (NEGATIVE) Urine HCG, Qual (NEGATIVE) Result Diagrams: 07/04/19 06:08 07/04/19 06:08 Lewis Results Last 24 hrs: Microbiology 07/04/19 01:41 Influenza Type A Antigen Screen - Final Nasopharyngeal Swab NEGATIVE INFLUENZA A VIRUS AG REFERENCE RANGE: NEGATIVE Influenza Type B Antigen Screen - Final NEGATIVE INFLUENZA B VIRUS AG REFERENCE RANGE: NEGATIVE 07/04/19 01:41 Group A Streptococcus Rapid Screen - Final Throat NEGATIVE STREP A SCREEN REFERENCE RANGE: NEGATIVE - Problem List (1) Community acquired bacterial pneumonia SNOMED Code(s): 999666427, 719247011 ICD Code: J15.9 - UNSPECIFIED BACTERIAL PNEUMONIA Status: Acute Current Visit: Yes Problem List Initiated/Reviewed/Updated: Yes Orders Last 24hrs: Active Orders 24 hr Category Date Time Status Admission Status [Patient Status] [ADT] Stat ADT 07/04/19 04:08 Active Up ad Lakia [RC] ASDIRECTED Care 07/04/19 05:38 Active Regular Diet [DIET] Diet 07/04/19 Breakfast Active CULTURE BLOOD [BC] Stat Lab 07/04/19 02:00 Received CULTURE BLOOD [BC] Stat Lab 07/04/19 02:30 Received CULTURE STREP A CONFIRMATION [RM] Stat Lab 07/04/19 01:41 Results STREP SCRN A RAPID W CULT CONF [RM] Stat Lab 07/04/19 01:41 Results VANCOMYCIN TROUGH [CHEM] Timed Lab 07/05/19 16:00 Ordered Acetaminophen [Tylenol] Med 07/04/19 07:40 Active 650 mg PO Q4H PRN Pharmacy to Dose - Vancomycin Med 07/04/19 05:45 Active 1 dose .XX ASDIRECTED Piperacillin/Tazobactam [Piperacil-Tazobact] 3.375 gm Med 07/04/19 12:00 Active Sodium Chloride 0.9% [Normal Saline] 50 ml IV Q8H Sodium Chloride 0.9% [Normal Saline] 1,000 ml Med 07/04/19 08:00 Active IV ASDIRECTED Vancomycin 1.75 gm Med 07/04/19 16:30 Active Sodium Chloride 0.9% [Normal Saline] 500 ml IV Q8H Vancomycin [Vancocin] 1 gm Med 07/04/19 08:30 Active Sodium Chloride 0.9% [Normal Saline (AdvBag)] 250 ml IV ONETIME Blood Culture x2 Reflex Set [OM.PC] Stat Oth 07/04/19 01:53 Ordered Medication Orders Acetaminophen (Tylenol) 650 mg PO Q4H PRN PRN Reason: Pain Sodium Chloride (Normal Saline) 1,000 mls @ 125 mls/hr IV ASDIRECTED [facility] Last Admin: 07/04/19 07:57 Dose: 125 mls/hr Piperacillin Sod/Tazobactam (Sod 3.375 gm/ Sodium Chloride) 50 mls @ 100 mls/ hr IV Q8H [facility] Vancomycin HCl 1 gm/ Sodium (Chloride) 250 mls @ 166.667 mls/hr IV ONETIME ONE Stop: 07/04/19 09:59 Last Admin: 07/04/19 08:55 Dose: 166.667 mls/hr Vancomycin HCl 1.75 gm/ Sodium (Chloride) 500 mls @ 250 mls/hr IV Q8H [facility] Vancomycin HCl (Pharmacy To Dose - Vancomycin) 1 dose .XX ASDIRECTED [facility] Assessment/Plan Comment:: A/P: 24 y/o F comes in with malaise, fever, chills CXR showed possible PNA in right Lower lobe, failed treatment with Levaquin on outpatient basis Antiseptic mouthwash for sore gums Received vancomycin and Zosyn in ER Will switch to Azithromycin and Rocephin F/u on blood cultures cont to monitor vitals closely
[2019-07-04] MEDS ORDERED: Magnesium Sulfate/Water 2 GM in Premix Bag 1 BAG IV ONE (10:20)
[2019-07-04] MEDS ORDERED: Piperacillin/Tazobactam 3.375 GM in Sodium Chloride 0.9% 50 ML IV SCH (13:30)
[2019-07-04] MEDS ORDERED: cefTRIAXone 1 GM in Premix Bag 1 BAG IV SCH (14:00)
[2019-07-04] MEDS: Azithromycin 500 MG in Sodium Chloride 0.9% 250 ML IV SCH (14:11)
[2019-07-04] MEDS: Acetaminophen 325 MG Tab PO PRN ×2 (14:33→22:42)
[2019-07-04] MEDS: cefTRIAXone 1 GM in Premix Bag 1 BAG IV SCH (15:54)
[2019-07-04] MEDS ORDERED: Vancomycin 1.75 GM in Sodium Chloride 0.9% 500 ML IV SCH ×5 (16:00→16:30)
[2019-07-04] MEDS ORDERED: Diphenhydramine/Lidocaine/Nystatin Suspension 237 ML Bottle PO PRN (18:02)
[2019-07-05] MEDS: SIMETH PO PRN ×28 (01:00→22:37)
[2019-07-05] MEDS: [UNRECOGNIZED DRUG - OTHER] PO PRN ×28 (01:00→22:37)
[2019-07-05] MEDS: DIPHENHYDRAMINE PO PRN ×28 (01:00→22:37)
[2019-07-05] MEDS: ALUM HYDROX PO PRN ×28 (01:00→22:37)
[2019-07-05] MEDS: MAG HYDROX PO PRN ×28 (01:00→22:37)
[2019-07-05] MEDS: LIDOCAINE 2% PO PRN ×28 (01:00→22:37)
[2019-07-05] MEDS: Sodium Chloride 0.9% 1,000 ML IV SCH ×2 (03:21→14:41)
[2019-07-05 06:16] LABS: BLOOD UREA NITROGEN,BUN 5 mg/dL (7.0-18.0); CARBON DIOXIDE,CO2 27.2 mmol/L (21.0-32.0); CHLORIDE,CL 105 mmol/L (98-107); GLUCOSE RANDOM 122 mg/dL (74-106); POTASSIUM,K 3.8 mmol/L (3.5-5.1); SODIUM,NA 139 mmol/L (136-145)
[2019-07-05] MEDS: Acetaminophen 325 MG Tab PO PRN (08:19)
[2019-07-05] MEDS: Azithromycin 500 MG in Sodium Chloride 0.9% 250 ML IV SCH (08:27)
--- NOTE | 2019-07-05 09:26 | PCM.PN ---
- General Info Date of Service: 07/05/19 Admission Dx/Problem (Free Text): Admission Diagnosis/Problem Admission Diagnosis/Problem Pneumonia Subjective Update: Feeling a little improved, it is still hard to swallow due to throat pain and mouth pain. No chest pain, reports shallow breathing. Mild diffuse abdominal pain. anterior neck/lymph nodes are sore. Functional Status: Reports: Pain Controlled (mouth wash helps with oral and throat pain). Denies: Tolerating Diet (not taking in a lot due to mouth pain) - Review of Systems General: Reports: Malaise HEENT: Reports: Headaches, Sore Throat Pulmonary: Reports: No Symptoms. Denies: Shortness of Breath Cardiovascular: Reports: No Symptoms. Denies: Chest Pain Gastrointestinal: Reports: Abdominal Pain. Denies: Nausea, Vomiting Genitourinary: Reports: No Symptoms. Denies: Dysuria, Frequency, Burning Musculoskeletal: Reports: No Symptoms Skin: Reports: No Symptoms Neurological: Reports: No Symptoms Psychiatric: Reports: No Symptoms - Patient Data Vitals - Most Recent: Last Vital Signs Temp 100.1 F 07/05/19 08:19 Pulse 115 H 07/05/19 07:10 Resp 16 07/05/19 07:10 BP 137/71 07/05/19 07:10 Pulse Ox 92 L 07/05/19 07:10 Weight - Most Recent: 124.8 kg I&O - Last 24 Hours: Intake & Output 07/04/19 07/05/19 07/05/19 22:59 06:59 14:59 Intake Total 2930 700 Output Total 1900 1700 Balance 1030 -1000 Lab Results Last 24 Hours: Laboratory Results - last 24 hr 07/05/19 07/05/19 Range/Units 05:50 05:50 WBC 7.56 (4.0-11.0) K/uL RBC 4.35 (4.30-5.90) M/uL Hgb 11.9 L (12.0-16.0) g/dL Hct 36.6 (36.0-46.0) % MCV 84.1 (80.0-98.0) fL MCH 27.4 (27.0-32.0) pg MCHC 32.5 (31.0-37.0) g/dL RDW Std Deviation 39.7 (28.0-62.0) fl RDW Coeff of Sherita 13 (11.0-15.0) % Plt Count 203 (150-400) K/uL MPV 10.10 (7.40-12.00) fL Neut % (Auto) 71.9 (48.0-80.0) % Lymph % (Auto) 14.6 L (16.0-40.0) % [place] % (Auto) 12.7 (0.0-15.0) % Eos % (Auto) 0.7 (0.0-7.0) % Baso % (Auto) 0.1 (0.0-1.5) % Neut # (Auto) 5.4 (1.4-5.7) K/uL Lymph # (Auto) 1.1 (0.6-2.4) K/uL [place] # (Auto) 1.0 H (0.0-0.8) K/uL Eos # (Auto) 0.1 (0.0-0.7) K/uL Baso # (Auto) 0.0 (0.0-0.1) K/uL Nucleated RBC % 0.0 /100WBC Nucleated RBCs # 0 K/uL Sodium 139 (136-145) mmol/L Potassium 3.8 (3.5-5.1) mmol/L Chloride 105 (98-107) mmol/L Carbon Dioxide 27.2 (21.0-32.0) mmol/L BUN 5 L (7.0-18.0) mg/dL Creatinine 1.0 (0.6-1.0) mg/dL Est Cr Clr Drug Dosing 85.09 mL/min Estimated GFR (MDRD) > 60.0 ml/min Glucose 122 H (74-106) mg/dL Calcium 7.8 L (8.5-10.1) mg/dL Phosphorus 3.0 (2.6-4.7) mg/dL Magnesium 2.0 (1.8-2.4) mg/dL [place] Results Last 24 Hours: Microbiology 07/04/19 02:30 Aerobic Blood Culture - Preliminary Blood - Venous - Lab Draw NO GROWTH AFTER 1 DAY Anaerobic Blood Culture - Preliminary NO GROWTH AFTER 1 DAY 07/04/19 02:00 Aerobic Blood Culture - Preliminary Blood - Venous NO GROWTH AFTER 1 DAY Anaerobic Blood Culture - Preliminary NO GROWTH AFTER 1 DAY 07/04/19 16:00 Gram Stain - Preliminary Sputum - Expectorated Med Orders - Current: Current Medications Acetaminophen (Tylenol) 650 mg PO Q4H PRN PRN Reason: Pain Last Admin: 07/05/19 08:19 Dose: 650 mg Lidocaine HCl 30 ml/ Al Hydroxide/Mg Hydroxide 30 ml/Diphenhydramine HCl 75 mg/ Nystatin 30 ml 0 ml PO 6XDAY PRN PRN Reason: Pain Last Admin: 07/05/19 08:37 Dose: 10 ml Sodium Chloride (Normal Saline) 1,000 mls @ 125 mls/hr IV ASDIRECTED [facility] Last Admin: 07/05/19 03:21 Dose: 125 mls/hr Azithromycin 500 mg/ Sodium (Chloride) 250 mls @ 250 mls/hr IV DAILY [facility] Last Admin: 07/05/19 08:27 Dose: 250 mls/hr Ceftriaxone Sodium/Dextrose 1 (gm/ Premix) 50 mls @ 100 mls/hr IV Q24H [facility] Last Admin: 07/04/19 15:54 Dose: 100 mls/hr Ibuprofen (Motrin) 400 mg PO Q4H PRN PRN Reason: Pain Oxycodone HCl (Oxycodone) 5 mg PO Q6H PRN PRN Reason: pain Discontinued Medications Acetaminophen (Tylenol Extra Strength) 1,000 mg PO ONETIME ONE Stop: 07/04/19 03:43 Last Admin: 07/04/19 03:46 Dose: 1,000 mg Acetaminophen (Tylenol Extra Strength) Confirm Administered Dose 1,000 mg .ROUTE .STK-MED ONE Stop: 07/04/19 03:45 Last Admin: 07/04/19 04:15 Dose: Not Given Lidocaine HCl 30 ml/ Al Hydroxide/Mg Hydroxide 30 ml/Diphenhydramine HCl 75 mg/ Nystatin 30 ml 0 ml PO ASDIRECTED PRN PRN Reason: Pain Last Admin: 07/05/19 03:29 Dose: 10 ml Diphenhydramine/Nystatin/Lidocaine (Magic Mouthwash) 0 ml PO BID PRN PRN Reason: Other Sodium Chloride (Normal Saline) 1,000 mls @ 999 mls/hr IV STAT ONE Stop: 07/04/19 02:54 Last Admin: 07/04/19 02:15 Dose: 999 mls/hr Piperacillin Sod/Tazobactam (Sod 3.375 gm/ Sodium Chloride) 50 mls @ 100 mls/ hr IV ONETIME ONE Stop: 07/04/19 04:36 Last Admin: 07/04/19 04:15 Dose: 100 mls/hr Vancomycin HCl 1 gm/ Sodium (Chloride) 250 mls @ 166 mls/hr IV ONETIME ONE Stop: 07/04/19 05:38 Last Admin: 07/04/19 04:15 Dose: 166 mls/hr Sodium Chloride (Normal Saline) 1,000 mls @ 999 mls/hr IV ASDIRECTED [facility] Last Admin: 07/04/19 06:49 Dose: 999 mls/hr Piperacillin Sod/Tazobactam (Sod 3.375 gm/ Sodium Chloride) 50 mls @ 100 mls/ hr IV Q8H [facility] Last Admin: 07/04/19 13:05 Dose: 100 mls/hr Vancomycin HCl 1 gm/ Sodium (Chloride) 250 mls @ 166.667 mls/hr IV ONETIME ONE Stop: 07/04/19 09:59 Last Admin: 07/04/19 08:55 Dose: 166.667 mls/hr Vancomycin HCl 1.75 gm/ Sodium (Chloride) 500 mls @ 250 mls/hr IV Q8H [facility] Magnesium Sulfate 2 gm/ Premix 50 mls @ 50 mls/hr IV ONETIME ONE Stop: 07/04/19 11:19 Last Admin: 07/04/19 10:59 Dose: 50 mls/hr Ceftriaxone Sodium/Dextrose 1 (gm/ Premix) 50 mls @ 100 mls/hr IV Q24H [facility] Vancomycin HCl (Pharmacy To Dose - Vancomycin) 1 dose .XX ASDIRECTED [facility] - Exam General: Alert, Oriented, Cooperative, No Acute Distress Neck: Supple, Lymphadenopathy, Other (no nuhcal rigidity) Lungs: Clear to Auscultation, Normal Respiratory Effort Cardiovascular: Regular Rate, Regular Rhythm GI/Abdominal Exam: Normal Bowel Sounds, Soft, Non-Tender Extremities: Normal Inspection, Normal Range of Motion, Non-Tender, No Pedal Edema Neurological: No New Focal Deficit Psy/Mental Status: Alert, Normal Affect, Normal Mood - Problem List & Annotations (1) Community acquired bacterial pneumonia SNOMED Code(s): 361050316, 273705266 Code(s): J15.9 - UNSPECIFIED BACTERIAL PNEUMONIA Status: Acute Current Visit: Yes (2) Abdominal pain SNOMED Code(s): 91945160 Code(s): R10.9 - UNSPECIFIED ABDOMINAL PAIN Status: Acute Current Visit: No Qualifiers: Abdominal location: lower abdomen, unspecified Qualified Code(s): R10.30 - Lower abdominal pain, unspecified (3) Headache SNOMED Code(s): 19123745 Code(s): R51 - HEADACHE Status: Acute Current Visit: No Qualifiers: Headache type: unspecified Headache chronicity pattern: acute headache Intractability: not intractable Qualified Code(s): R51 - Headache - Problem List Review Problem List Initiated/Reviewed/Updated: Yes - My Orders Last 24 Hours: My Active Orders 07/05/19 08:33 Ibuprofen [Motrin] 400 mg PO Q4H PRN 07/05/19 08:34 oxyCODONE 5 mg PO Q6H PRN - Plan Plan:: This 24 y/o female admitted with malaise, fever, chills 1. CAP: Failed outpatient management, Continue Rocephin and Azithromycin. Stable on RA. BC negative x 1 day 2. Pharyngitis: Lymphadenopathy noted on exam, tonsils swollen +2 with pustules noted, strep test negative. Continue antibiotics as above. Continue Nystatin/ lidocaine mouthwash this is helping with pain. Add Lozenges as well. Sutter negative. Add HIV on. Continue IVFs as she is not eating/drinking much currently. VTE prophylaxis: SCDs and ambulation Dispo: 1-2 days
[2019-07-05] MEDS: oxyCODONE 5 MG Tab PO PRN ×3 (09:36→22:37)
[2019-07-05] MEDS: Ibuprofen 400 MG Tab PO PRN ×2 (12:47→18:31)
[2019-07-05] MEDS: cefTRIAXone 1 GM in Premix Bag 1 BAG IV SCH (14:42)
[2019-07-05] MEDS: Benzocaine/Cetylpyridinium/Menthol Lozenge MUCMEM PRN (22:38)
[2019-07-06] MEDS: Sodium Chloride 0.9% 1,000 ML IV SCH ×4 (00:11→22:11)
[2019-07-06] MEDS: Benzocaine/Cetylpyridinium/Menthol Lozenge MUCMEM PRN ×9 (00:53→19:47)
[2019-07-06] MEDS: Ibuprofen 400 MG Tab PO PRN ×3 (00:53→21:20)
[2019-07-06] MEDS: Acetaminophen 325 MG Tab PO PRN (02:57)
[2019-07-06] MEDS: [UNRECOGNIZED DRUG - OTHER] PO PRN ×20 (04:43→21:17)
[2019-07-06] MEDS: SIMETH PO PRN ×20 (04:43→21:17)
[2019-07-06] MEDS: DIPHENHYDRAMINE PO PRN ×20 (04:43→21:17)
[2019-07-06] MEDS: ALUM HYDROX PO PRN ×20 (04:43→21:17)
[2019-07-06] MEDS: MAG HYDROX PO PRN ×20 (04:43→21:17)
[2019-07-06] MEDS: LIDOCAINE 2% PO PRN ×20 (04:43→21:17)
[2019-07-06] MEDS: oxyCODONE 5 MG Tab PO PRN ×3 (04:44→18:17)
[2019-07-06 07:11] LABS: BLOOD UREA NITROGEN,BUN 3 mg/dL (7.0-18.0); CARBON DIOXIDE,CO2 23.8 mmol/L (21.0-32.0); CHLORIDE,CL 105 mmol/L (98-107); GLUCOSE RANDOM 84 mg/dL (74-106); POTASSIUM,K 3.5 mmol/L (3.5-5.1); SODIUM,NA 139 mmol/L (136-145)
[2019-07-06] MEDS: Azithromycin 500 MG in Sodium Chloride 0.9% 250 ML IV SCH (09:18)
--- NOTE | 2019-07-06 11:08 | PCM.PN ---
- General Info Date of Service: 07/06/19 Admission Dx/Problem (Free Text): Admission Diagnosis/Problem Admission Diagnosis/Problem Pneumonia Subjective Update: Feeling somehwat improved, only drinking small amounts of water due to throat pain. No obstruction. Overall improving. No fevers or chills. Functional Status: Reports: Pain Controlled, Tolerating Diet, Ambulating, Urinating - Review of Systems General: Reports: Malaise HEENT: Reports: Sore Throat. Denies: Headaches, Visual Changes Pulmonary: Reports: No Symptoms. Denies: Shortness of Breath Cardiovascular: Reports: No Symptoms. Denies: Chest Pain Gastrointestinal: Reports: No Symptoms. Denies: Abdominal Pain, Nausea, Vomiting Genitourinary: Reports: No Symptoms Musculoskeletal: Reports: No Symptoms Skin: Reports: No Symptoms Neurological: Reports: No Symptoms Psychiatric: Reports: No Symptoms - Patient Data Vitals - Most Recent: Last Vital Signs Temp 99.2 F 07/06/19 08:00 Pulse 95 07/06/19 08:00 Resp 18 07/06/19 08:00 BP 138/83 07/06/19 08:00 Pulse Ox 99 07/06/19 08:00 Weight - Most Recent: 125 kg I&O - Last 24 Hours: Intake & Output 07/05/19 07/06/19 07/06/19 22:59 06:59 14:59 Intake Total 3681 Output Total 1000 Balance 2681 Lab Results Last 24 Hours: Laboratory Results - last 24 hr 07/05/19 07/06/19 07/06/19 Range/Units 05:50 05:48 05:48 WBC 7.44 (4.0-11.0) K/uL RBC 4.08 L (4.30-5.90) M/uL Hgb 11.2 L (12.0-16.0) g/dL Hct 34.8 L (36.0-46.0) % MCV 85.3 (80.0-98.0) fL MCH 27.5 (27.0-32.0) pg MCHC 32.2 (31.0-37.0) g/dL RDW Std Deviation 41.0 (28.0-62.0) fl RDW Coeff of Sherita 13 (11.0-15.0) % Plt Count 200 (150-400) K/uL MPV 10.80 (7.40-12.00) fL Neut % (Auto) 69.9 (48.0-80.0) % Lymph % (Auto) 17.1 (16.0-40.0) % [place] % (Auto) 11.0 (0.0-15.0) % Eos % (Auto) 1.7 (0.0-7.0) % Baso % (Auto) 0.3 (0.0-1.5) % Neut # (Auto) 5.2 (1.4-5.7) K/uL Lymph # (Auto) 1.3 (0.6-2.4) K/uL [place] # (Auto) 0.8 (0.0-0.8) K/uL Eos # (Auto) 0.1 (0.0-0.7) K/uL Baso # (Auto) 0.0 (0.0-0.1) K/uL Nucleated RBC % 0.0 /100WBC Nucleated RBCs # 0 K/uL Sodium 139 (136-145) mmol/L Potassium 3.5 (3.5-5.1) mmol/L Chloride 105 (98-107) mmol/L Carbon Dioxide 23.8 (21.0-32.0) mmol/L BUN 3 L (7.0-18.0) mg/dL Creatinine 0.8 (0.6-1.0) mg/dL Est Cr Clr Drug Dosing 106.36 mL/min Estimated GFR (MDRD) > 60.0 ml/min Glucose 84 (74-106) mg/dL Calcium 7.9 L (8.5-10.1) mg/dL HIV 1&2 Ag/Ab, 4th Gen 0.2 (<1.0) INDEX Lewis Results Last 24 Hours: Microbiology 07/04/19 16:00 Gram Stain - Final Sputum - Expectorated Sputum Culture - Final Normal Respiratory Chasity 07/04/19 02:30 Aerobic Blood Culture - Preliminary Blood - Venous - Lab Draw NO GROWTH AFTER 2 DAYS Anaerobic Blood Culture - Preliminary NO GROWTH AFTER 2 DAYS 07/04/19 02:00 Aerobic Blood Culture - Preliminary Blood - Venous NO GROWTH AFTER 2 DAYS Anaerobic Blood Culture - Preliminary NO GROWTH AFTER 2 DAYS 07/04/19 01:41 Quick Strep Confirmation Culture - Final Throat NO GROUP A STREP ISOLATED REFERENCE RANGE: NEGATIVE Group A Streptococcus Rapid Screen - Final NEGATIVE STREP A SCREEN REFERENCE RANGE: NEGATIVE Med Orders - Current: Current Medications Acetaminophen (Tylenol) 650 mg PO Q4H PRN PRN Reason: Pain Last Admin: 07/06/19 02:57 Dose: 650 mg Benzocaine/Menthol (Cepacol Sore Throat) 1 lozenge MUCMEM Q2H PRN PRN Reason: Sore Throat Last Admin: 07/06/19 09:45 Dose: 1 lozenge Lidocaine HCl 30 ml/ Al Hydroxide/Mg Hydroxide 30 ml/Diphenhydramine HCl 75 mg/ Nystatin 30 ml 0 ml PO 6XDAY PRN PRN Reason: Pain Last Admin: 07/06/19 09:24 Dose: 10 ml Azithromycin 500 mg/ Sodium (Chloride) 250 mls @ 250 mls/hr IV DAILY ZINA Last Admin: 07/06/19 09:18 Dose: 250 mls/hr Ceftriaxone Sodium/Dextrose 1 (gm/ Premix) 50 mls @ 100 mls/hr IV Q24H ZINA Last Admin: 07/05/19 14:42 Dose: 100 mls/hr Sodium Chloride (Normal Saline) 1,000 mls @ 75 mls/hr IV Q13H ZINA Ibuprofen (Motrin) 400 mg PO Q4H PRN PRN Reason: Pain Last Admin: 07/06/19 06:56 Dose: 400 mg Oxycodone HCl (Oxycodone) 5 mg PO Q6H PRN PRN Reason: pain Last Admin: 07/06/19 04:44 Dose: 5 mg Discontinued Medications Acetaminophen (Tylenol Extra Strength) 1,000 mg PO ONETIME ONE Stop: 07/04/19 03:43 Last Admin: 07/04/19 03:46 Dose: 1,000 mg Acetaminophen (Tylenol Extra Strength) Confirm Administered Dose 1,000 mg .ROUTE .STK-MED ONE Stop: 07/04/19 03:45 Last Admin: 07/04/19 04:15 Dose: Not Given Lidocaine HCl 30 ml/ Al Hydroxide/Mg Hydroxide 30 ml/Diphenhydramine HCl 75 mg/ Nystatin 30 ml 0 ml PO ASDIRECTED PRN PRN Reason: Pain Last Admin: 07/05/19 03:29 Dose: 10 ml Diphenhydramine/Nystatin/Lidocaine (Magic Mouthwash) 0 ml PO BID PRN PRN Reason: Other Sodium Chloride (Normal Saline) 1,000 mls @ 999 mls/hr IV STAT ONE Stop: 07/04/19 02:54 Last Admin: 07/04/19 02:15 Dose: 999 mls/hr Piperacillin Sod/Tazobactam (Sod 3.375 gm/ Sodium Chloride) 50 mls @ 100 mls/ hr IV ONETIME ONE Stop: 07/04/19 04:36 Last Admin: 07/04/19 04:15 Dose: 100 mls/hr Vancomycin HCl 1 gm/ Sodium (Chloride) 250 mls @ 166 mls/hr IV ONETIME ONE Stop: 07/04/19 05:38 Last Admin: 07/04/19 04:15 Dose: 166 mls/hr Sodium Chloride (Normal Saline) 1,000 mls @ 999 mls/hr IV ASDIRECTED [facility] Last Admin: 07/04/19 06:49 Dose: 999 mls/hr Sodium Chloride (Normal Saline) 1,000 mls @ 125 mls/hr IV ASDIRECTED [facility] Last Admin: 07/06/19 08:34 Dose: 125 mls/hr Piperacillin Sod/Tazobactam (Sod 3.375 gm/ Sodium Chloride) 50 mls @ 100 mls/ hr IV Q8H [facility] Last Admin: 07/04/19 13:05 Dose: 100 mls/hr Vancomycin HCl 1 gm/ Sodium (Chloride) 250 mls @ 166.667 mls/hr IV ONETIME ONE Stop: 07/04/19 09:59 Last Admin: 07/04/19 08:55 Dose: 166.667 mls/hr Vancomycin HCl 1.75 gm/ Sodium (Chloride) 500 mls @ 250 mls/hr IV Q8H [facility] Magnesium Sulfate 2 gm/ Premix 50 mls @ 50 mls/hr IV ONETIME ONE Stop: 07/04/19 11:19 Last Admin: 07/04/19 10:59 Dose: 50 mls/hr Ceftriaxone Sodium/Dextrose 1 (gm/ Premix) 50 mls @ 100 mls/hr IV Q24H [facility] Vancomycin HCl (Pharmacy To Dose - Vancomycin) 1 dose .XX ASDIRECTED [facility] - Exam General: Alert, Oriented, Cooperative Neck: Supple, Lymphadenopathy, Other (improvement in pustules to tonsils.) Lungs: Clear to Auscultation, Normal Respiratory Effort Cardiovascular: Regular Rate, Regular Rhythm GI/Abdominal Exam: Normal Bowel Sounds, Soft, Non-Tender Extremities: Normal Inspection, Normal Range of Motion, Non-Tender, No Pedal Edema Psy/Mental Status: Alert, Normal Affect, Normal Mood Sepsis Event Note - Evaluation Sepsis Screening Result: No Definite Risk - Focused Exam Vital Signs: Vital Signs Temp Pulse Resp BP Pulse Ox 07/06/19 08:00 99.2 F 95 18 138/83 99 07/06/19 04:00 99.1 F 106 H 19 102/51 L 92 L 07/06/19 00:00 100.2 F 111 H 16 124/70 96 Date Exam was Performed: 07/06/19 Time Exam was Performed: 11:02 - Problem List & Annotations (1) Community acquired bacterial pneumonia SNOMED Code(s): 525464964, 960282677 Code(s): J15.9 - UNSPECIFIED BACTERIAL PNEUMONIA Status: Acute Current Visit: Yes (2) Abdominal pain SNOMED Code(s): 78998114 Code(s): R10.9 - UNSPECIFIED ABDOMINAL PAIN Status: Acute Current Visit: No Qualifiers: Abdominal location: lower abdomen, unspecified Qualified Code(s): R10.30 - Lower abdominal pain, unspecified (3) Headache SNOMED Code(s): 56945968 Code(s): R51 - HEADACHE Status: Acute Current Visit: No Qualifiers: Headache type: unspecified Headache chronicity pattern: acute headache Intractability: not intractable Qualified Code(s): R51 - Headache - Problem List Review Problem List Initiated/Reviewed/Updated: Yes - My Orders Last 24 Hours: My Active Orders 07/05/19 15:34 Resuscitation Status Routine 07/06/19 09:45 Sodium Chloride 0.9% [Normal Saline] 1,000 ml IV Q13H 07/06/19 Lunch Full Liquid Diet [DIET] - Plan Plan:: This 24 y/o female admitted with malaise, fever, chills 1. CAP: Continue Rocephin and Azithromycin. Stable on RA. BC negative x 2 day. Sputum negative. 2. Pharyngitis: Improving. Continue antibiotics as above. Continue Nystatin/ lidocaine mouthwash this is helping with pain and Lozenges as well. HIV neg. Continue IVFs but will decrease today, encouraged FL intake. VTE prophylaxis: SCDs and ambulation Dispo: 1-2 days
[2019-07-06] MEDS: cefTRIAXone 1 GM in Premix Bag 1 BAG IV SCH (14:59)
[2019-07-07] MEDS: oxyCODONE 5 MG Tab PO PRN ×3 (00:23→13:05)
[2019-07-07] MEDS: Benzocaine/Cetylpyridinium/Menthol Lozenge MUCMEM PRN ×4 (00:26→08:37)
[2019-07-07] MEDS: Ibuprofen 400 MG Tab PO PRN (03:50)
[2019-07-07] MEDS: [UNRECOGNIZED DRUG - OTHER] PO PRN ×12 (03:52→13:06)
[2019-07-07] MEDS: MAG HYDROX PO PRN ×12 (03:52→13:06)
[2019-07-07] MEDS: SIMETH PO PRN ×12 (03:52→13:06)
[2019-07-07] MEDS: ALUM HYDROX PO PRN ×12 (03:52→13:06)
[2019-07-07] MEDS: LIDOCAINE 2% PO PRN ×12 (03:52→13:06)
[2019-07-07] MEDS: DIPHENHYDRAMINE PO PRN ×12 (03:52→13:06)
[2019-07-07 05:48] LABS: BLOOD UREA NITROGEN,BUN 4 mg/dL (7.0-18.0); CARBON DIOXIDE,CO2 23.7 mmol/L (21.0-32.0); CHLORIDE,CL 105 mmol/L (98-107); GLUCOSE RANDOM 89 mg/dL (74-106); POTASSIUM,K 3.8 mmol/L (3.5-5.1); SODIUM,NA 139 mmol/L (136-145)
[2019-07-07] MEDS: Azithromycin 500 MG in Sodium Chloride 0.9% 250 ML IV SCH (09:05)
[2019-07-07] MEDS ORDERED: Acyclovir 200 MG Cap PO SCH (09:31)
--- NOTE | 2019-07-07 12:55 | PCM.DCSUM1 ---
Discharge Summary - Hospital Course Brief History: Patient presents with fever and sore throat, generalized weakness , malaise for past few days. Patent states that she was seen 2 days prior and started on Levaquin which didnt help much. In ER patient was tachycardic. CXR was positive for right lower lobe PNA. Patient was admitted for management of vancomycin and Zoyn in ER, for failed outpatient treatment of PNA. - Discharge Data Discharge Date: 07/07/19 Discharge Disposition: Home, Self-Care 01 Condition: Good - Referral to Home Health Primary Care Physician: PCP None - Discharge Diagnosis/Problem(s) (1) Community acquired bacterial pneumonia SNOMED Code(s): 266638472, 160831637 ICD Code: J15.9 - UNSPECIFIED BACTERIAL PNEUMONIA Status: Acute Current Visit: Yes (2) Abdominal pain SNOMED Code(s): 96908814 ICD Code: R10.9 - UNSPECIFIED ABDOMINAL PAIN Status: Acute Current Visit : No Qualifiers: Abdominal location: lower abdomen, unspecified Qualified Code(s): R10.30 - Lower abdominal pain, unspecified (3) Headache SNOMED Code(s): 49097479 ICD Code: R51 - HEADACHE Status: Acute Current Visit: No Qualifiers: Headache type: unspecified Headache chronicity pattern: acute headache Intractability: not intractable Qualified Code(s): R51 - Headache - Patient Instructions Diet: Drink 8-10+ Glasses/Day, Mechanical Soft, Pureed (until able to swallow without pain) Activity: No Strenuous Activities Showering/Bathing: May Shower Notify Provider of: Fever, Increased Pain, Swelling and Redness, Drainage, Nausea and/or Vomiting Other/Special Instructions: Cold compress to oral sores with popiscles. Return to ED if concerns arise, such as fever chills or unable to swallow. - Discharge Plan *PRESCRIPTION DRUG MONITORING PROGRAM REVIEWED*: Not Applicable *COPY OF PRESCRIPTION DRUG MONITORING REPORT IN PATIENT ANEUDY: Not Applicable Prescriptions/Med Rec: Acyclovir 400 mg PO TID #30 tablet Alum Hydrox/Mag Hydrox/Simeth [Maalox Advanced] 10 ml PO 6XDAY PRN #500 ml PRN Reason: oral sores Azithromycin 500 mg PO DAILY #3 tablet Benzocaine/Menthol [Cepacol Sore Throat Lozenge] 1 each MM Q2H #1 box Cefdinir 300 mg PO BID #6 capsule Ibuprofen [Motrin] 600 mg PO Q6H PRN #1 tab PRN Reason: Pain oxyCODONE 5 mg PO Q8H PRN #10 tablet PRN Reason: pain Home Medications: Home Meds Acetaminophen [Tylenol] 650 mg PO Q4H PRN tablet 07/07/19 [Rx] Acyclovir 400 mg PO TID #30 tablet 07/07/19 [Rx] Alum Hydrox/Mag Hydrox/Simeth [Maalox Advanced] 10 ml PO 6XDAY PRN #500 ml 07/07 [Rx] Azithromycin 500 mg PO DAILY #3 tablet 07/07/19 [Rx] Benzocaine/Menthol [Cepacol Sore Throat Lozenge] 1 each MM Q2H #1 box 07/07/19 [ Rx] Cefdinir 300 mg PO BID #6 capsule 07/07/19 [Rx] Ibuprofen [Motrin] 600 mg PO Q6H PRN #1 tab 07/07/19 [Rx] oxyCODONE 5 mg PO Q8H PRN #10 tablet 07/07/19 [Rx] Oxygen Therapy Mode: Room Air Patient Handouts: Cefdinir capsules, Oxycodone tablets or capsules, Ibuprofen tablets and capsules, Urinary Tract Infection, Adult, [id number], Benzocaine Oral Lozenges, Abdominal Pain, Adult, [id number], Aluminum Hydroxide; Magnesium Hydroxide; Simethicone oral suspension, Acyclovir tablets or capsules , Community-Acquired Pneumonia, Adult, [id number] Referrals: Jessie Albert MD [Ordering Only Provider] - 07/13/19 9:00 am - Discharge Summary/Plan Comment DC Time >30 min.: No Discharge Summary/Plan Comment: Admitting Diagnoses: Failed outpatient management R LL CAP Pharyngitis Discharge Diagnoses: RLL CAP Herpes simplex orolabial Pharyngitis Dilcia was admitted for failed outpatient management of CAP to RLL, she was treated with Azithromycin and Rocephin. She was placed on IVFs. Respirtory status was stable during stay. Strep swab negative. She complained of significant oral sores, and was noted to have some canker sores to tongue, then today, sores appeared more and appear to be herpes simplex. She denies having this in the past, likely occurred due to recent acute illness. She was started on Acyclovir, Maalox/Benadryl oral swish and swallow along with cepacol. She has been drinking fluids well, eating is painful, but oxycodone and swish and swallow has helped. Labwork remains stable today. She will be discharged home. She will continue Azithromycin for 3 days, Cefdinir x 3 days, Acyclovir for 10 days, and oral swish and swallow as she needs. I did give her Oxycodone 5 mg every 6-8 hours as needed for severe oral pain no refills. Motrin and Tylenol for pain PRN as well. She is to return to ED or clinic if concerns should arise. - Patient Data Vitals - Most Recent: Last Vital Signs Temp 97.4 F 07/07/19 07:55 Pulse 83 07/07/19 07:55 Resp 16 07/07/19 07:55 BP 138/80 07/07/19 07:55 Pulse Ox 95 07/07/19 07:55 Weight - Most Recent: 124 kg I&O - Last 24 hours: Intake & Output 07/06/19 07/07/19 07/07/19 22:59 06:59 14:59 Intake Total 2450 2067 250 Output Total 1400 2900 Balance 1050 -833 250 Lab Results - Last 24 hrs: Laboratory Results - last 24 hr 07/07/19 07/07/19 Range/Units 05:13 05:13 WBC 7.29 (4.0-11.0) K/uL RBC 4.13 L (4.30-5.90) M/uL Hgb 11.2 L (12.0-16.0) g/dL Hct 34.7 L (36.0-46.0) % MCV 84.0 (80.0-98.0) fL MCH 27.1 (27.0-32.0) pg MCHC 32.3 (31.0-37.0) g/dL RDW Std Deviation 39.5 (28.0-62.0) fl RDW Coeff of Sherita 13 (11.0-15.0) % Plt Count 226 (150-400) K/uL MPV 10.60 (7.40-12.00) fL Neut % (Auto) 64.0 (48.0-80.0) % Lymph % (Auto) 22.8 (16.0-40.0) % [place] % (Auto) 10.0 (0.0-15.0) % Eos % (Auto) 2.9 (0.0-7.0) % Baso % (Auto) 0.3 (0.0-1.5) % Neut # (Auto) 4.7 (1.4-5.7) K/uL Lymph # (Auto) 1.7 (0.6-2.4) K/uL [place] # (Auto) 0.7 (0.0-0.8) K/uL Eos # (Auto) 0.2 (0.0-0.7) K/uL Baso # (Auto) 0.0 (0.0-0.1) K/uL Nucleated RBC % 0.0 /100WBC Nucleated RBCs # 0 K/uL Sodium 139 (136-145) mmol/L Potassium 3.8 (3.5-5.1) mmol/L Chloride 105 (98-107) mmol/L Carbon Dioxide 23.7 (21.0-32.0) mmol/L BUN 4 L (7.0-18.0) mg/dL Creatinine 0.7 (0.6-1.0) mg/dL Est Cr Clr Drug Dosing 121.55 mL/min Estimated GFR (MDRD) > 60.0 ml/min Glucose 89 (74-106) mg/dL Calcium 8.1 L (8.5-10.1) mg/dL LISSETH Results - Last 24 hrs: Microbiology 07/04/19 02:30 Aerobic Blood Culture - Preliminary Blood - Venous - Lab Draw NO GROWTH AFTER 3 DAYS Anaerobic Blood Culture - Preliminary NO GROWTH AFTER 3 DAYS 07/04/19 02:00 Aerobic Blood Culture - Preliminary Blood - Venous NO GROWTH AFTER 3 DAYS Anaerobic Blood Culture - Preliminary NO GROWTH AFTER 3 DAYS 07/04/19 16:00 Gram Stain - Final Sputum - Expectorated Sputum Culture - Final Normal Respiratory Chasity Med Orders - Current: Current Medications Acetaminophen (Tylenol) 650 mg PO Q4H PRN PRN Reason: Pain Last Admin: 07/06/19 02:57 Dose: 650 mg Acyclovir (Zovirax) 400 mg PO TID ZINA Last Admin: 07/07/19 09:43 Dose: 400 mg Benzocaine/Menthol (Cepacol Sore Throat) 1 lozenge MUCMEM Q2H PRN PRN Reason: Sore Throat Last Admin: 07/07/19 08:37 Dose: 1 lozenge Lidocaine HCl 30 ml/ Al Hydroxide/Mg Hydroxide 30 ml/Diphenhydramine HCl 75 mg/ Nystatin 30 ml 0 ml PO 6XDAY PRN PRN Reason: Pain Last Admin: 07/07/19 08:37 Dose: 10 ml Azithromycin 500 mg/ Sodium (Chloride) 250 mls @ 250 mls/hr IV DAILY ZINA Last Admin: 07/07/19 09:05 Dose: 250 mls/hr Ceftriaxone Sodium/Dextrose 1 (gm/ Premix) 50 mls @ 100 mls/hr IV Q24H ZINA Last Admin: 07/06/19 14:59 Dose: 100 mls/hr Sodium Chloride (Normal Saline) 1,000 mls @ 75 mls/hr IV Q13H ZINA Last Admin: 07/06/19 22:11 Dose: 75 mls/hr Ibuprofen (Motrin) 400 mg PO Q4H PRN PRN Reason: Pain Last Admin: 07/07/19 03:50 Dose: 400 mg Oxycodone HCl (Oxycodone) 5 mg PO Q6H PRN PRN Reason: pain Last Admin: 07/07/19 06:31 Dose: 5 mg Discontinued Medications Acetaminophen (Tylenol Extra Strength) 1,000 mg PO ONETIME ONE Stop: 07/04/19 03:43 Last Admin: 07/04/19 03:46 Dose: 1,000 mg Acetaminophen (Tylenol Extra Strength) Confirm Administered Dose 1,000 mg .ROUTE .STK-MED ONE Stop: 07/04/19 03:45 Last Admin: 07/04/19 04:15 Dose: Not Given Lidocaine HCl 30 ml/ Al Hydroxide/Mg Hydroxide 30 ml/Diphenhydramine HCl 75 mg/ Nystatin 30 ml 0 ml PO ASDIRECTED PRN PRN Reason: Pain Last Admin: 07/05/19 03:29 Dose: 10 ml Diphenhydramine/Nystatin/Lidocaine (Magic Mouthwash) 0 ml PO BID PRN PRN Reason: Other Sodium Chloride (Normal Saline) 1,000 mls @ 999 mls/hr IV STAT ONE Stop: 07/04/19 02:54 Last Admin: 07/04/19 02:15 Dose: 999 mls/hr Piperacillin Sod/Tazobactam (Sod 3.375 gm/ Sodium Chloride) 50 mls @ 100 mls/ hr IV ONETIME ONE Stop: 07/04/19 04:36 Last Admin: 07/04/19 04:15 Dose: 100 mls/hr Vancomycin HCl 1 gm/ Sodium (Chloride) 250 mls @ 166 mls/hr IV ONETIME ONE Stop: 07/04/19 05:38 Last Admin: 07/04/19 04:15 Dose: 166 mls/hr Sodium Chloride (Normal Saline) 1,000 mls @ 999 mls/hr IV ASDIRECTED [facility] Last Admin: 07/04/19 06:49 Dose: 999 mls/hr Sodium Chloride (Normal Saline) 1,000 mls @ 125 mls/hr IV ASDIRECTED [facility] Last Admin: 07/06/19 08:34 Dose: 125 mls/hr Piperacillin Sod/Tazobactam (Sod 3.375 gm/ Sodium Chloride) 50 mls @ 100 mls/ hr IV Q8H [facility] Last Admin: 07/04/19 13:05 Dose: 100 mls/hr Vancomycin HCl 1 gm/ Sodium (Chloride) 250 mls @ 166.667 mls/hr IV ONETIME ONE Stop: 07/04/19 09:59 Last Admin: 07/04/19 08:55 Dose: 166.667 mls/hr Vancomycin HCl 1.75 gm/ Sodium (Chloride) 500 mls @ 250 mls/hr IV Q8H [facility] Magnesium Sulfate 2 gm/ Premix 50 mls @ 50 mls/hr IV ONETIME ONE Stop: 07/04/19 11:19 Last Admin: 07/04/19 10:59 Dose: 50 mls/hr Ceftriaxone Sodium/Dextrose 1 (gm/ Premix) 50 mls @ 100 mls/hr IV Q24H [facility] Vancomycin HCl (Pharmacy To Dose - Vancomycin) 1 dose .XX ASDIRECTED [facility] - Exam Quality Assessment: Denies: Supplemental Oxygen General: Reports: Alert, Oriented, Cooperative HEENT: Reports: Other (sore notes to oralabial mucosa. a couple to bottom oralabia as well as to inside of cheeks and tongue. ) Lungs: Reports: Clear to Auscultation, Normal Respiratory Effort Cardiovascular: Reports: Regular Rate, Regular Rhythm GI/Abdominal Exam: Normal Bowel Sounds, Soft, Non-Tender Extremities: Normal Inspection, Normal Range of Motion, Non-Tender, No Pedal Edema Neurological: Reports: No New Focal Deficit Psy/Mental Status: Reports: Alert, Normal Affect, Normal Mood
== END 2019-07-07 13:30 | disposition home or self-care (01) ==
LOC: MW.ED 01:27 → MW.MS 04:08
PROVIDERS: ADMIT Student in an Organized Health Care Education/Training Program; ATTEND Student in an Organized Health Care Education/Training Program
DX: J15.9 Unspecified bacterial pneumonia (principal); R10.9 Unspecified abdominal pain; R51 Headache; F41.9 Anxiety disorder, unspecified; F32.9 Major depressive disorder, single episode, unspecified; Z87.891 Personal history of nicotine dependence
CPT/HCPCS: 36415; 71045; 74176; 80048; 80053; 81001; 81025; 83605; 83735; 84100; 85025; 86308; 87040; 87070; 87081; 87205; 87389; 87804; 87880; 93005; 96361; 96365; 96368; 99285; A9270; J0456; J0696; J2543; J3370; J3475; J7030; J7050; 96366; 96367; 96376; G0378

== ENCOUNTER 2020-02-03 12:54 | Emergency (ER) | payer BC ==
[2020-02-03] MEDS ORDERED: Sodium Chloride 0.9% 10 ML Syringe FLUSH PRN (13:25)
[2020-02-03] MEDS ORDERED: Sodium Chloride 0.9% 2.5 ML Syringe FLUSH PRN (13:25)
[2020-02-03] MEDS ORDERED: Metoclopramide 10 MG/2 ML SDV IVPUSH ONE (13:26)
[2020-02-03] MEDS ORDERED: diphenhydrAMINE 50 MG/ML SDV IVPUSH ONE (13:26)
[2020-02-03] MEDS ORDERED: Sodium Chloride 0.9% 1,000 ML IV ONE (13:27)
--- NOTE | 2020-02-03 13:27 | EDM.PDOC ---
ED HPI GENERAL MEDICAL PROBLEM - General Chief Complaint: General Stated Complaint: DIZZINESS; ERVINKEY Time Seen by Provider: 02/03/20 13:06 - History of Present Illness INITIAL COMMENTS - FREE TEXT/NARRATIVE: History of present illness: This 21-week patient had a sudden onset of some headache with dizziness described as lightheadedness feeling like she is going to pass out that began 2 hours prior to arrival she denies any prior problems with her this is her first she does have OB care there is been no bleeding no abdominal pain no other complications she denies having any history of hypertension she currently still feels lightheaded and has a mild headache she says the headache came on in waves it waxes and wanes and it is generalized. She denies any blurred vision she has not had any peripheral swelling no increased urination nothing seems to make it better or worse Review of systems: As per history of present illness and below otherwise all systems reviewed and negative. Past medical history: As per history of present illness and as reviewed below otherwise noncontributory. Surgical history: As per history of present illness and as reviewed below otherwise noncontributory. Social history: No reported history of drug or alcohol abuse. Family history: As per history of present illness and as reviewed below otherwise noncontributory. Physical exam: HEENT: Atraumatic, normocephalic, pupils reactive, negative for conjunctival pallor or scleral icterus, mucous membranes moist, throat clear, neck supple, nontender, trachea midline. Lungs: Clear to auscultation, breath sounds equal bilaterally, chest nontender. Heart: S1S2, regular, negative for clicks, rubs, or JVD. Abdomen: Soft, nondistended, nontender. Negative for masses or hepatosplenomegaly. Negative for costovertebral tenderness. Pelvis: Stable nontender. Genitourinary: Deferred. Rectal: Deferred. Extremities: Atraumatic, negative for cords or calf pain. Neurovascular unremarkable. Peripheral edema Neuro: Awake, alert, oriented. Cranial nerves II through XII unremarkable. Cerebellum unremarkable. Motor and sensory unremarkable throughout. Exam nonfocal. No pronator drift Signs: Her vital signs are stable there is no significant hypertension on initial set of vital signs. Diagnostics: [] Therapeutics: [] Impression: [] Plan: Studies will be sent EKG was obtained she will be reassessed. [] Definitive disposition and diagnosis as appropriate pending reevaluation and review of above. Headache Pain Score (Numeric/FACES): 7 - Related Data Allergies Allergy/AdvReac Type Severity Reaction Status Date / Time No Known Allergies Allergy Verified 02/03/20 13:10 Home Meds: Home Meds . [No Known Home Meds] 02/03/20 [History] Past Medical History - Past Health History Medical/Surgical History: Denies Medical/Surgical History HEENT History: Reports: None Cardiovascular History: Reports: None Respiratory History: Reports: None Gastrointestinal History: Reports: None Genitourinary History: Reports: None SECURITIES COMPLIANCE EXAMINER History: Reports: Other SECURITIES COMPLIANCE EXAMINER History: 21 weeks Musculoskeletal History: Reports: None Neurological History: Reports: None Psychiatric History: Reports: Anxiety, Bipolar, Depression, PTSD Endocrine/Metabolic History: Reports: None Hematologic History: Reports: None Immunologic History: Reports: None Oncologic (Cancer) History: Reports: None Dermatologic History: Reports: None - Infectious Disease History Infectious Disease History: Reports: None - Past Surgical History Head Surgeries/Procedures: Reports: None HEENT Surgical History: Reports: Adenoidectomy, Oral Surgery Social & Family History - Family History Family Medical History: Noncontributory Endocrine/Metabolic: Reports: Diabetes, Type I Oncologic: Reports: Leukemia - Tobacco Use Smoking Status *Q: Former Smoker Used Tobacco, but Quit: Yes Month/Year Tobacco Last Used: 10/14 - Caffeine Use Caffeine Use: Reports: Coffee, Energy Drinks - Recreational Drug Use Recreational Drug Use: No ED ROS GENERAL - Review of Systems Review Of Systems: See Below ED EXAM, GENERAL - Physical Exam Exam: See Below EKG INTERPRETATION EKG Interpretation Comments: EKG is a normal sinus rhythm with a rate of 97 bpm normal EKG normal axis normal rate no ischemia read and interpreted by me Course - Vital Signs Text/Narrative:: It is of gradual onset she is afebrile there is no trauma involved and she has a normal neurological exam I do not believe this represents a subarachnoid hemorrhage at this time. She will be evaluated for the possibility of preeclampsia as well as urinary tract infection she will be given some Benadryl and Reglan for comfort. Last Recorded V/S: Last Vital Signs Temp 35.4 C L 02/03/20 13:07 Pulse 93 02/03/20 14:54 Resp 17 02/03/20 14:54 BP 124/70 02/03/20 14:54 Pulse Ox 97 02/03/20 14:54 - Orders/Labs/Meds Orders: Active Orders 24 hr Category Date Time Status EKG Documentation Completion [RC] STAT Care 02/03/20 13:25 Active Sodium Chloride 0.9% [Saline Flush] Med 02/03/20 13:25 Active 10 ml FLUSH ASDIRECTED PRN Sodium Chloride 0.9% [Saline Flush] Med 02/03/20 13:25 Active 2.5 ml FLUSH ASDIRECTED PRN Saline Lock Insert [OM.PC] Stat Oth 02/03/20 13:25 Ordered Medication Orders Sodium Chloride (Saline Flush) 10 ml FLUSH ASDIRECTED PRN PRN Reason: Keep Vein Open Last Admin: 02/03/20 14:12 Dose: 10 ml Documented by: RITESH Sodium Chloride (Saline Flush) 2.5 ml FLUSH ASDIRECTED PRN PRN Reason: Keep Vein Open Last Admin: 02/03/20 14:12 Dose: 2.5 ml Documented by: RITESH Labs: Laboratory Tests 02/03/20 02/03/20 02/03/20 Range/Units 13:01 13:57 13:57 WBC 10.62 (4.0-11.0) K/uL RBC 3.60 L (4.30-5.90) M/uL Hgb 10.4 L (12.0-16.0) g/dL Hct 31.2 L (36.0-46.0) % MCV 86.7 (80.0-98.0) fL MCH 28.9 (27.0-32.0) pg MCHC 33.3 (31.0-37.0) g/dL RDW Std Deviation 42.6 (28.0-62.0) fl RDW Coeff of Sherita 14 (11.0-15.0) % Plt Count 245 (150-400) K/uL MPV 10.10 (7.40-12.00) fL Neut % (Auto) 77.5 (48.0-80.0) % Lymph % (Auto) 14.2 L (16.0-40.0) % [place] % (Auto) 6.0 (0.0-15.0) % Eos % (Auto) 2.1 (0.0-7.0) % Baso % (Auto) 0.2 (0.0-1.5) % Neut # (Auto) 8.2 H (1.4-5.7) K/uL Lymph # (Auto) 1.5 (0.6-2.4) K/uL [place] # (Auto) 0.6 (0.0-0.8) K/uL Eos # (Auto) 0.2 (0.0-0.7) K/uL Baso # (Auto) 0.0 (0.0-0.1) K/uL Nucleated RBC % 0.0 /100WBC Nucleated RBCs # 0 K/uL INR APTT (18.6-31.3) SEC Sodium 139 (136-145) mmol/L Potassium 3.7 (3.5-5.1) mmol/L Chloride 104 (98-107) mmol/L Carbon Dioxide 24.3 (21.0-32.0) mmol/L BUN 11 (7.0-18.0) mg/dL Creatinine 0.7 (0.6-1.0) mg/dL Est Cr Clr Drug Dosing 121.55 mL/min Estimated GFR (MDRD) > 60.0 ml/min Glucose 126 H (74-106) mg/dL Calcium 8.3 L (8.5-10.1) mg/dL Total Bilirubin 0.2 (0.2-1.0) mg/dL AST 14 L (15-37) IU/L ALT 20 (14-63) IU/L Alkaline Phosphatase 71 (46-116) U/L Total Protein 6.4 (6.4-8.2) g/dL Albumin 2.8 L (3.4-5.0) g/dL Globulin 3.6 (2.6-4.0) g/dL Albumin/Globulin Ratio 0.8 L (0.9-1.6) Urine Color YELLOW Urine Appearance CLEAR Urine pH 6.0 (5.0-8.0) Ur Specific Warren >= 1.030 (1.001-1.035) Urine Protein NEGATIVE (NEGATIVE) mg/dL Urine Glucose (UA) NEGATIVE (NEGATIVE) mg/dL Urine Ketones NEGATIVE (NEGATIVE) mg/dL Urine Occult Blood NEGATIVE (NEGATIVE) Urine Nitrite NEGATIVE (NEGATIVE) Urine Bilirubin NEGATIVE (NEGATIVE) Urine Urobilinogen 0.2 (<2.0) EU/dL Ur Leukocyte Esterase NEGATIVE (NEGATIVE) 02/03/20 Range/Units 13:57 WBC (4.0-11.0) K/uL RBC (4.30-5.90) M/uL Hgb (12.0-16.0) g/dL Hct (36.0-46.0) % MCV (80.0-98.0) fL MCH (27.0-32.0) pg MCHC (31.0-37.0) g/dL RDW Std Deviation (28.0-62.0) fl RDW Coeff of Sherita (11.0-15.0) % Plt Count (150-400) K/uL MPV (7.40-12.00) fL Neut % (Auto) (48.0-80.0) % Lymph % (Auto) (16.0-40.0) % [place] % (Auto) (0.0-15.0) % Eos % (Auto) (0.0-7.0) % Baso % (Auto) (0.0-1.5) % Neut # (Auto) (1.4-5.7) K/uL Lymph # (Auto) (0.6-2.4) K/uL [place] # (Auto) (0.0-0.8) K/uL Eos # (Auto) (0.0-0.7) K/uL Baso # (Auto) (0.0-0.1) K/uL Nucleated RBC % /100WBC Nucleated RBCs # K/uL INR 0.91 APTT 28.1 (18.6-31.3) SEC Sodium (136-145) mmol/L Potassium (3.5-5.1) mmol/L Chloride (98-107) mmol/L Carbon Dioxide (21.0-32.0) mmol/L BUN (7.0-18.0) mg/dL Creatinine (0.6-1.0) mg/dL Est Cr Clr Drug Dosing mL/min Estimated GFR (MDRD) ml/min Glucose (74-106) mg/dL Calcium (8.5-10.1) mg/dL Total Bilirubin (0.2-1.0) mg/dL AST (15-37) IU/L ALT (14-63) IU/L Alkaline Phosphatase (46-116) U/L Total Protein (6.4-8.2) g/dL Albumin (3.4-5.0) g/dL Globulin (2.6-4.0) g/dL Albumin/Globulin Ratio (0.9-1.6) Urine Color Urine Appearance Urine pH (5.0-8.0) Ur Specific [place] (1.001-1.035) Urine Protein (NEGATIVE) mg/dL Urine Glucose (UA) (NEGATIVE) mg/dL Urine Ketones (NEGATIVE) mg/dL Urine Occult Blood (NEGATIVE) Urine Nitrite (NEGATIVE) Urine Bilirubin (NEGATIVE) Urine Urobilinogen (<2.0) EU/dL Ur Leukocyte Esterase (NEGATIVE) Meds: Medications Generic Name Dose Route Start Last Admin Trade Name Freq PRN Reason Stop Dose Admin Sodium Chloride 10 ml 02/03/20 13:25 02/03/20 14:12 Saline Flush FLUSH 10 ml ASDIRECTED PRN Administration Keep Vein Open Sodium Chloride 2.5 ml 02/03/20 13:25 02/03/20 14:12 Saline Flush FLUSH 2.5 ml ASDIRECTED PRN Administration Keep Vein Open Discontinued Medications Generic Name Dose Route Start Last Admin Trade Name Freq PRN Reason Stop Dose Admin Diphenhydramine HCl 25 mg 02/03/20 13:26 02/03/20 14:10 Benadryl IVPUSH 02/03/20 13:27 25 mg ONETIME ONE Administration Sodium Chloride 1,000 mls @ 999 mls/hr 02/03/20 13:27 02/03/20 14:09 Normal Saline IV 02/03/20 14:27 999 mls/hr .Bolus ONE Administration Metoclopramide HCl 10 mg 02/03/20 13:26 02/03/20 14:10 Reglan IVPUSH 02/03/20 13:27 10 mg ONETIME ONE Administration Departure - Departure Time of Disposition: 15:07 Disposition: Home, Self-Care 01 Condition: Good Clinical Impression: Dizziness Headache Qualifiers: Headache type: unspecified Headache chronicity pattern: acute headache Intractability: not intractable Qualified Code(s): R51 - Headache - Discharge Information *PRESCRIPTION DRUG MONITORING PROGRAM REVIEWED*: Not Applicable *COPY OF PRESCRIPTION DRUG MONITORING REPORT IN PATIENT ANEUDY: Not Applicable Instructions: General Headache Without Cause, Dizziness, [id number] Referrals: PCP,None [Primary Care Provider] - Forms: ED Department Discharge Additional Instructions: The following information is given to patients seen in the emergency department who are being discharged to home. This information is to outline your options for follow-up care. We provide all patients seen in our emergency department with a follow-up referral. The need for follow-up, as well as the timing and circumstances, are variable depending upon the specifics of your emergency department visit. If you don't have a primary care physician on staff, we will provide you with a referral. We always advise you to contact your personal physician following an emergency department visit to inform them of the circumstance of the visit and for follow-up with them and/or the need for any referrals to a consulting specialist. The emergency department will also refer you to a specialist when appropriate. This referral assures that you have the opportunity for follow-up care with a specialist. All of these measure are taken in an effort to provide you with optimal care, which includes your follow-up. Under all circumstances we always encourage you to contact your private physician who remains a resource for coordinating your care. When calling for follow-up care, please make the office aware that this follow-up is from your recent emergency room visit. If for any reason you are refused follow-up, please contact the [facility] Emergency Department at and asked to speak to the emergency department charge nurse. [facility] [address] [place] [id number] [facility] [address] [place] [id number] Sepsis Event Note (ED) - Evaluation Sepsis Screening Result: No Definite Risk - Focused Exam Vital Signs: Vital Signs Temp Pulse Resp BP Pulse Ox 02/03/20 14:54 93 17 124/70 97 02/03/20 13:07 35.4 C L 98 18 133/63 98 - My Orders Last 24 Hours: My Active Orders 02/03/20 13:25 EKG Documentation Completion [RC] STAT Sodium Chloride 0.9% [Saline Flush] 10 ml FLUSH ASDIRECTED PRN Sodium Chloride 0.9% [Saline Flush] 2.5 ml FLUSH ASDIRECTED PRN Saline Lock Insert [OM.PC] Stat - Assessment/Plan Last 24 Hours: My Active Orders 02/03/20 13:25 EKG Documentation Completion [RC] STAT Sodium Chloride 0.9% [Saline Flush] 10 ml FLUSH ASDIRECTED PRN Sodium Chloride 0.9% [Saline Flush] 2.5 ml FLUSH ASDIRECTED PRN Saline Lock Insert [OM.PC] Stat
[2020-02-03 14:27] LABS: BLOOD UREA NITROGEN,BUN 11 mg/dL (7.0-18.0); CARBON DIOXIDE,CO2 24.3 mmol/L (21.0-32.0); CHLORIDE,CL 104 mmol/L (98-107); GLUCOSE RANDOM 126 mg/dL (74-106); POTASSIUM,K 3.7 mmol/L (3.5-5.1); SODIUM,NA 139 mmol/L (136-145)
== END 2020-02-03 15:28 | disposition home or self-care (01) ==
LOC: MW.ED 12:54
DX: O99.89 Other specified diseases and conditions complicating pregnancy, childbirth and the puerperium (principal); R42 Dizziness and giddiness; R51 Headache; Z87.891 Personal history of nicotine dependence; Z3A.21 21 weeks gestation of pregnancy
CPT/HCPCS: 36415; 80053; 81003; 85025; 85610; 85730; 93005; 96361; 96374; 96375; 99284; J1200; J2765; J7030

== ENCOUNTER 2020-04-10 15:39 | Emergency (ER) | payer BC, OTHER ==
[2020-04-10] MEDS ORDERED: Sodium Chloride 0.9% 1,000 ML IV ONE (15:57)
[2020-04-10 16:33] LABS: BLOOD UREA NITROGEN,BUN 11 mg/dL (7.0-18.0); CARBON DIOXIDE,CO2 24.2 mmol/L (21.0-32.0); CHLORIDE,CL 105 mmol/L (98-107); GLUCOSE RANDOM 86 mg/dL (74-106); POTASSIUM,K 3.9 mmol/L (3.5-5.1); SODIUM,NA 138 mmol/L (136-145)
--- NOTE | 2020-04-10 18:08 | EDM.PDOC ---
ED HPI GENERAL MEDICAL PROBLEM - General Chief Complaint: Cardiovascular Problem Stated Complaint: DIZZY, HEADACHE, BP Time Seen by Provider: 04/10/20 15:40 Source of Information: Reports: Patient History Limitations: Reports: No Limitations - History of Present Illness INITIAL COMMENTS - FREE TEXT/NARRATIVE: HISTORY AND PHYSICAL: History of present illness: Patient is a 25-year-old female, who is 31 weeks in gestation, who presents to the ED today with concern of dizziness and "feeling as if her heart is racing ". 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 Patient states that she feels as if her heart is racing and has some slight dizziness but denies any syncope or near syncope. Patient denies any abdominal pain, change in vaginal discharge, or vaginal bleeding. Patient denies any falls or injuries. Patient denies hitting her head. Patient denies fever, chills, chest pain, shortness of breath, or cough. Denies headache, neck stiff ness, change in vision, syncope, or near syncope. Denies nausea, vomiting, abdominal pain, diarrhea, constipation, or dysuria. Has not noted any blood in urine or stool. Patient has been eating and drinking appropriately. Review of systems: As per history of present illness and below otherwise all systems reviewed and negative. Past medical history: As per history of present illness and as reviewed below otherwise noncontributory. Surgical history: As per history of present illness and as reviewed below otherwise noncontributory. Social history: See social history for further information Family history: As per history of present illness and as reviewed below otherwise noncontributory. Physical exam: General: Patient is alert, oriented, and in no acute distress. Patient sitting comfortably on exam table. HEENT: Atraumatic, normocephalic, pupils equal and reactive bilaterally, negative for conjunctival pallor or scleral icterus, mucous membranes moist, TMs normal bilaterally, throat clear, neck supple, nontender, trachea midline. No drooling or trismus noted. No meningeal signs. No hot potato voice noted. Lungs: Clear to auscultation, breath sounds equal bilaterally, chest nontender. Heart: S1S2, regular rate and rhythm without overt murmur Abdomen: Soft, nondistended, nontender. Negative for masses or hepatosplenomegaly. Negative for costovertebral tenderness. Pelvis: Stable nontender. Genitourinary: Deferred. Rectal: Deferred. Skin: Intact, warm, dry. No lesions or rashes noted. Extremities: Atraumatic, negative for cords or calf pain. Neurovascular unremarkable. Neuro: Awake, alert, oriented. Cranial nerves II through XII unremarkable. Cerebellum unremarkable. Motor and sensory unremarkable throughout. Exam nonfocal. Notes: Dr. Lee verbally involved in patient care. FHT at bedside 140s. Iniitally patient tachycardic on exam ranging from 100-120 during my exam. BP today reassuring and not elevated. Labor and delivery at bedside performed NST and sent to patients OBGYN, Dr. Raman, and instructed that baby was cleared and NST reassuring per OB staff. Patient tachycardia resolved to 70-80bpm with 1L NS. Patient does have leukocytosis, however, likely elevated due to , lactate WNL. UA shows no evidence of UTI and patient declines CXR. Patients ddimer mildly elevated today. Thoroughly discussed risks versus benefits of angiochest CT with patient. She declines angiochestCT at this time and expresses understanding of risks vs benefits. CXR was then offered to patient but she also declines CXR and accepting of risks vs benefits of this, all risks and benefits discussed. Patient expresses improvement of symptoms today in the ED. Discussed importance for follow-up with her primary care provider/CONSTRUCTION PROJECT COORDINATOR provider. Signs and symptoms that would prompt return to the ED thoroughly discussed with patient. Voices understanding and is agreeable to plan of care. Denies any further questions or concerns at this time. Diagnostics: CBC, CMP, UA, EKG, Trop, lactate, ddimer Therapeutics: NS Prescription: None Impression: Dizziness, improved Plan: 1. Encourage small but frequent sips of fluid to prevent dehydration. 2. Follow-up with your CONSTRUCTION PROJECT COORDINATOR provider as discussed. Return to the ED as needed and as discussed. Definitive disposition and diagnosis as appropriate pending reevaluation and review of above. - Related Data Allergies Allergy/AdvReac Type Severity Reaction Status Date / Time No Known Allergies Allergy Verified 04/10/20 15:51 Home Meds: Home Meds Pnv No.95/Ferrous Fum/Folic AC [ Caplet] 1 tab PO DAILY 04/10/20 [History] Past Medical History - Past Health History Medical/Surgical History: Denies Medical/Surgical History HEENT History: Reports: None Cardiovascular History: Reports: None Respiratory History: Reports: None Gastrointestinal History: Reports: None Genitourinary History: Reports: None CONSTRUCTION PROJECT COORDINATOR History: Reports: Other CONSTRUCTION PROJECT COORDINATOR History: 31 weeks Musculoskeletal History: Reports: None Neurological History: Reports: None Psychiatric History: Reports: Anxiety, Bipolar, Depression, PTSD Endocrine/Metabolic History: Reports: None Hematologic History: Reports: None Immunologic History: Reports: None Oncologic (Cancer) History: Reports: None Dermatologic History: Reports: None - Infectious Disease History Infectious Disease History: Reports: None - Past Surgical History Head Surgeries/Procedures: Reports: None HEENT Surgical History: Reports: Adenoidectomy, Oral Surgery Social & Family History - Family History Family Medical History: Noncontributory Endocrine/Metabolic: Reports: Diabetes, Type I Oncologic: Reports: Leukemia - Tobacco Use Smoking Status *Q: Never Smoker - Caffeine Use Caffeine Use: Reports: Coffee, Energy Drinks - Recreational Drug Use Recreational Drug Use: No ED ROS GENERAL - Review of Systems Review Of Systems: Comprehensive ROS is negative, except as noted in HPI. ED EXAM, GENERAL - Physical Exam Exam: See Below (see dictation) Course - Vital Signs Last Recorded V/S: Last Vital Signs Temp 96.2 F L 04/10/20 15:48 Pulse 102 H 04/10/20 15:48 Resp 16 04/10/20 15:48 BP 122/58 L 04/10/20 15:48 Pulse Ox 97 04/10/20 15:48 - Orders/Labs/Meds Orders: Active Orders 24 hr Category Date Time Status Cardiac Monitoring [RC] . DIRECTED Care 04/10/20 15:57 Active EKG Documentation Completion [RC] STAT Care 04/10/20 15:57 Active Labs: Laboratory Tests 04/10/20 04/10/20 04/10/20 Range/Units 15:53 15:53 16:03 WBC 17.13 H (4.0-11.0) K/uL RBC 3.87 L (4.30-5.90) M/uL Hgb 11.3 L (12.0-16.0) g/dL Hct 34.4 L (36.0-46.0) % MCV 88.9 (80.0-98.0) fL MCH 29.2 (27.0-32.0) pg MCHC 32.8 (31.0-37.0) g/dL RDW Std Deviation 43.5 (28.0-62.0) fl RDW Coeff of Sherita 14 (11.0-15.0) % Plt Count 304 (150-400) K/uL MPV 10.20 (7.40-12.00) fL Add Manual Diff YES Neutrophils % (Manual) 76 (48.0-80.0) % Band Neutrophils % 3 % Lymphocytes % (Manual) 16 (16.0-40.0) % Monocytes % (Manual) 3 (0.0-15.0) % Eosinophils % (Manual) 2 (0.0-7.0) % Nucleated RBC % 0.0 /100WBC Absolute Seg Neuts 13.0 H (1.4-5.7) Band Neutrophils # 0.5 Lymphocytes # (Manual) 2.7 H (0.6-2.4) Monocytes # (Manual) 0.5 (0.0-0.8) Eosinophils # (Manual) 0.3 (0.0-0.7) Nucleated RBCs # 0 K/uL D-Dimer, Quantitative (0.0-0.50) mg/L FEU Lactate (0.20-2.00) mmol/L Sodium 138 (136-145) mmol/L Potassium 3.9 (3.5-5.1) mmol/L Chloride 105 (98-107) mmol/L Carbon Dioxide 24.2 (21.0-32.0) mmol/L BUN 11 (7.0-18.0) mg/dL Creatinine 0.8 (0.6-1.0) mg/dL Est Cr Clr Drug Dosing 105.45 mL/min Estimated GFR (MDRD) > 60.0 ml/min Glucose 86 (74-106) mg/dL Calcium 8.4 L (8.5-10.1) mg/dL Total Bilirubin 0.3 (0.2-1.0) mg/dL AST 17 (15-37) IU/L ALT 30 (14-63) IU/L Alkaline Phosphatase 100 (46-116) U/L Troponin I < 0.050 (0.000-0.056) ng/mL Total Protein 6.9 (6.4-8.2) g/dL Albumin 3.0 L (3.4-5.0) g/dL Globulin 3.9 (2.6-4.0) g/dL Albumin/Globulin Ratio 0.8 L (0.9-1.6) Urine Color YELLOW Urine Appearance CLEAR Urine pH 5.5 (5.0-8.0) Ur Specific [place] 1.020 (1.001-1.035) Urine Protein NEGATIVE (NEGATIVE) mg/dL Urine Glucose (UA) NEGATIVE (NEGATIVE) mg/dL Urine Ketones NEGATIVE (NEGATIVE) mg/dL Urine Occult Blood NEGATIVE (NEGATIVE) Urine Nitrite NEGATIVE (NEGATIVE) Urine Bilirubin NEGATIVE (NEGATIVE) Urine Urobilinogen 0.2 (<2.0) EU/dL Ur Leukocyte Esterase NEGATIVE (NEGATIVE) 04/10/20 04/10/20 Range/Units 16:18 16:24 WBC (4.0-11.0) K/uL RBC (4.30-5.90) M/uL Hgb (12.0-16.0) g/dL Hct (36.0-46.0) % MCV (80.0-98.0) fL MCH (27.0-32.0) pg MCHC (31.0-37.0) g/dL RDW Std Deviation (28.0-62.0) fl RDW Coeff of Sherita (11.0-15.0) % Plt Count (150-400) K/uL MPV (7.40-12.00) fL Add Manual Diff Neutrophils % (Manual) (48.0-80.0) % Band Neutrophils % % Lymphocytes % (Manual) (16.0-40.0) % Monocytes % (Manual) (0.0-15.0) % Eosinophils % (Manual) (0.0-7.0) % Nucleated RBC % /100WBC Absolute Seg Neuts (1.4-5.7) Band Neutrophils # Lymphocytes # (Manual) (0.6-2.4) Monocytes # (Manual) (0.0-0.8) Eosinophils # (Manual) (0.0-0.7) Nucleated RBCs # K/uL D-Dimer, Quantitative 1.00 H (0.0-0.50) mg/L FEU Lactate 0.5 (0.20-2.00) mmol/L Sodium (136-145) mmol/L Potassium (3.5-5.1) mmol/L Chloride (98-107) mmol/L Carbon Dioxide (21.0-32.0) mmol/L BUN (7.0-18.0) mg/dL Creatinine (0.6-1.0) mg/dL Est Cr Clr Drug Dosing mL/min Estimated GFR (MDRD) ml/min Glucose (74-106) mg/dL Calcium (8.5-10.1) mg/dL Total Bilirubin (0.2-1.0) mg/dL AST (15-37) IU/L ALT (14-63) IU/L Alkaline Phosphatase (46-116) U/L Troponin I (0.000-0.056) ng/mL Total Protein (6.4-8.2) g/dL Albumin (3.4-5.0) g/dL Globulin (2.6-4.0) g/dL Albumin/Globulin Ratio (0.9-1.6) Urine Color Urine Appearance Urine pH (5.0-8.0) Ur Specific [place] (1.001-1.035) Urine Protein (NEGATIVE) mg/dL Urine Glucose (UA) (NEGATIVE) mg/dL Urine Ketones (NEGATIVE) mg/dL Urine Occult Blood (NEGATIVE) Urine Nitrite (NEGATIVE) Urine Bilirubin (NEGATIVE) Urine Urobilinogen (<2.0) EU/dL Ur Leukocyte Esterase (NEGATIVE) Meds: Medications Discontinued Medications Generic Name Dose Route Start Last Admin Trade Name Freq PRN Reason Stop Dose Admin Sodium Chloride 1,000 mls @ 999 mls/hr 04/10/20 15:57 04/10/20 16:05 Normal Saline IV 04/10/20 16:57 999 mls/hr BOLUS ONE Administration Departure - Departure Time of Disposition: 18:06 Disposition: Home, Self-Care 01 Clinical Impression: Dizziness Instructions: Dizziness, [id number] Referrals: Caitlin Pepper DO [Primary Care Provider] - Forms: ED Department Discharge Additional Instructions: The following information is given to patients seen in the emergency department who are being discharged to home. This information is to outline your options for follow-up care. We provide all patients seen in our emergency department with a follow-up referral. The need for follow-up, as well as the timing and circumstances, are variable depending upon the specifics of your emergency department visit. If you don't have a primary care physician on staff, we will provide you with a referral. We always advise you to contact your personal physician following an emergency department visit to inform them of the circumstance of the visit and for follow-up with them and/or the need for any referrals to a consulting specialist. The emergency department will also refer you to a specialist when appropriate. This referral assures that you have the opportunity for follow-up care with a specialist. All of these measure are taken in an effort to provide you with optimal care, which includes your follow-up. Under all circumstances we always encourage you to contact your private physician who remains a resource for coordinating your care. When calling for follow-up care, please make the office aware that this follow-up is from your recent emergency room visit. If for any reason you are refused follow-up, please contact the Emergency Department at and asked to speak to the emergency department charge nurse. Primary Care [address] [place] [address] [place] [address] 1. Encourage small but frequent sips of fluid to prevent dehydration. 2. Follow-up with your CONSTRUCTION PROJECT COORDINATOR provider as discussed. Return to the ED as needed and as discussed. Sepsis Event Note (ED) - Evaluation Sepsis Screening Result: No Definite Risk - Focused Exam Vital Signs: Vital Signs Temp Pulse Resp BP Pulse Ox 04/10/20 15:48 96.2 F L 102 H 16 122/58 L 97 - My Orders Last 24 Hours: My Active Orders 04/10/20 15:57 Cardiac Monitoring [RC] . DIRECTED EKG Documentation Completion [RC] STAT - Assessment/Plan Last 24 Hours: My Active Orders 04/10/20 15:57 Cardiac Monitoring [RC] . DIRECTED EKG Documentation Completion [RC] STAT
== END 2020-04-10 18:41 | disposition home or self-care (01) ==
LOC: MW.ED 15:39
DX: O99.89 Other specified diseases and conditions complicating pregnancy, childbirth and the puerperium (principal); R42 Dizziness and giddiness; R00.0 Tachycardia, unspecified; Z3A.31 31 weeks gestation of pregnancy
CPT/HCPCS: 36415; 59025; 80053; 81003; 83605; 84484; 85025; 85379; 93005; 96360; 96361; 99285; J7030; 99283

== ENCOUNTER 2020-04-28 13:22 | Emergency (ER) | payer OTHER, SELFPAY ==
--- NOTE | 2020-04-28 13:36 | EDM.PDOC ---
ED HPI GENERAL MEDICAL PROBLEM - General Chief Complaint: Respiratory Problem Stated Complaint: COUGHING 33WK PREGO Time Seen by Provider: 04/28/20 13:35 Source of Information: Reports: Patient History Limitations: Reports: No Limitations - History of Present Illness INITIAL COMMENTS - FREE TEXT/NARRATIVE: HISTORY AND PHYSICAL: History of present illness: Patient is a 35-year-old female who presents to the emergency room with complaints of cough and body aches over the past few days. She states on Friday she was informed that a coworker tested positive for COVID-19, she was screened on Friday but has not received those results. She states today she has increasing cough and feels SOB when she is coughing hard. Currently is 33 weeks gestation, being [facility] by Dr. Raman. She denies having any OBGYN concerns (baby is active, no bleeding/cramping/discharge or back pain). Patient denies any fever, chills, headache, change in vision, syncope or near syncope. Denies any chest pain, back pain, abdominal pain, nausea, vomiting, diarrhea, constipation or dysuria. Has not noted any blood in urine or stool. Patient has been eating and drinking appropriately. She states her main concern is to be tested for COVID-19, she has been self quarantine since her symptoms started and informed of the exposure but "just wanted to make sure what is going on". Review of systems: As per history of present illness and below otherwise all systems reviewed and negative. Past medical history: As per history of present illness and as reviewed below otherwise noncontributory. Surgical history: As per history of present illness and as reviewed below otherwise noncontributory. Social history: See social history for further information Family history: As per history of present illness and as reviewed below otherwise noncontributory. Physical exam: General: Well developed and well nourished. Alert and orientated x 3. Nontoxic in appearance and in no acute distress. Vital signs are stable and have been reviewed by me. Nursing notes were reviewed. HEENT: Atraumatic, normocephalic, pupils equal and reactive bilaterally, negative for conjunctival pallor or scleral icterus, mucous membranes moist, TMs normal bilaterally, throat clear, neck supple, nontender, trachea midline. No drooling or trismus noted. No meningeal signs. No hot potato voice noted. Lungs: Clear to auscultation, breath sounds equal bilaterally, chest nontender. Normal work of breathing, no accessory muscles used. Heart: S1S2, regular rate and rhythm without overt murmur Abdomen: Soft, 33 weeks , nontender. Negative for masses or hepatosplenomegaly. Negative for costovertebral tenderness. Skin: Intact, warm, dry. No lesions or rashes noted. Hematologic: No petechiae or purpra. Mucosa appropriate color and normal nail bed color and refill. Extremities: Atraumatic, moves all extremities per self without difficulty or deficits, negative for cords or calf pain. Lower extremities are equal in temperature, size and strength. Neurovascular unremarkable. Neuro: Awake, alert, oriented. Cranial nerves II through XII unremarkable. Cerebellum unremarkable. Motor and sensory unremarkable throughout. Exam nonfocal. Psychiatric: Mood and affect are appropriate. Normal thought process. Answering questions appropriately. Notes: 1430: Spoke with Dr Raman about this patient. He states no further work-up is needed on this patient, she does have an appointment with him next week. I have spoken with the patient/caregiver and discussed today's findings, in addition to providing specific details for plan of care. Reassessment at the time of disposition demonstrates that the patient is in no acute distress. The patient has remained stable throughout the entire ED visit and is without objective evidence for acute process requiring urgent intervention or hospitalization. The patient is stable for discharge, counseling was provided and we discussed in great detail signs and symptoms that would prompt them to return to the Emergency Department. Medication, follow up and supportive care measures were reviewed and discussed. Voices understanding and is agreeable to plan of care. Denies any further questions or concerns at this time. Diagnostics: COVID Therapeutics: None Prescription: Ventolin Impression: Viral URI Plan: 1. Today your COVID screening is negative. Please stay quarantined until you have your state testing as this could be a false negative. 2. Please use the inhaler 2 puffs every 4 hours as needed for your respiratory symptoms. You can take Tylenol for pain and fever management. 3. We encourage you to follow up with your primary care provider and/or recommended specialist in the next few days for re-evaluation and further care/management. If your symptoms should worsen, new symptoms develop or any of the signs and symptoms we discussed should arise please return to the emergency room or call 911 (if needed). Definitive disposition and diagnosis as appropriate pending reevaluation and review of above. bodyaches Pain Score (Numeric/FACES): 6 - Related Data Allergies Allergy/AdvReac Type Severity Reaction Status Date / Time No Known Allergies Allergy Verified 04/28/20 13:37 Home Meds: Home Meds Pnv No.95/Ferrous Fum/Folic AC [ Caplet] 1 tab PO DAILY 04/10/20 [History] Albuterol [Ventolin HFA] 2 puff INH Q4H PRN #1 inh 04/28/20 [Rx] Past Medical History - Past Health History Medical/Surgical History: Denies Medical/Surgical History HEENT History: Reports: None Cardiovascular History: Reports: None Respiratory History: Reports: None Gastrointestinal History: Reports: None Genitourinary History: Reports: None LENS EDGE GRINDER MACHINE History: Reports: Other LENS EDGE GRINDER MACHINE History: 31 weeks Musculoskeletal History: Reports: None Neurological History: Reports: None Psychiatric History: Reports: Anxiety, Bipolar, Depression, PTSD Endocrine/Metabolic History: Reports: None Hematologic History: Reports: None Immunologic History: Reports: None Oncologic (Cancer) History: Reports: None Dermatologic History: Reports: None - Infectious Disease History Infectious Disease History: Reports: None - Past Surgical History Head Surgeries/Procedures: Reports: None HEENT Surgical History: Reports: Adenoidectomy, Oral Surgery Social & Family History - Family History Family Medical History: Noncontributory Endocrine/Metabolic: Reports: Diabetes, Type I Oncologic: Reports: Leukemia - Caffeine Use Caffeine Use: Reports: Coffee, Energy Drinks ED ROS GENERAL - Review of Systems Review Of Systems: Comprehensive ROS is negative, except as noted in HPI. ED EXAM, GENERAL - Physical Exam Exam: See Below (See dictation) Course - Vital Signs Last Recorded V/S: Last Vital Signs Temp 96.2 F L 04/28/20 13:33 Pulse 127 H 04/28/20 13:33 Resp 22 H 04/28/20 13:33 BP 119/76 04/28/20 13:33 Pulse Ox 96 04/28/20 13:33 - Orders/Labs/Meds Orders: Active Orders 24 hr Category Date Time Status CORONAVIRUS COVID-19 PCR [facility] Stat Lab 04/28/20 13:45 Received Labs: Laboratory Tests 04/28/20 Range/Units 13:45 SARS CoV-2 RNA Rapid JITENDRA NEGATIVE (NEGATIVE) Departure - Departure Time of Disposition: 14:38 Disposition: Home, Self-Care 01 Clinical Impression: Viral respiratory illness - Discharge Information Prescriptions: Albuterol [Ventolin HFA] 2 puff INH Q4H PRN #1 inh PRN Reason: Dyspnea Instructions: Viral Respiratory Infection Referrals: David Sheffield MD [Primary Care Provider] - Forms: ED Department Discharge Additional Instructions: The following information is given to patients seen in the emergency department who are being discharged to home. This information is to outline your options for follow-up care. We provide all patients seen in our emergency department with a follow-up referral. The need for follow-up, as well as the timing and circumstances, are variable depending upon the specifics of your emergency department visit. If you don't have a primary care physician on staff, we will provide you with a referral. We always advise you to contact your personal physician following an emergency department visit to inform them of the circumstance of the visit and for follow-up with them and/or the need for any referrals to a consulting specialist. The emergency department will also refer you to a specialist when appropriate. This referral assures that you have the opportunity for follow-up care with a specialist. All of these measure are taken in an effort to provide you with optimal care, which includes your follow-up. Under all circumstances we always encourage you to contact your private phys ician who remains a resource for coordinating your care. When calling for follow-up care, please make the office aware that this follow-up is from your recent emergency room visit. If for any reason you are refused follow-up, please contact the [facility] Emergency Department at and asked to speak to the emergency department charge nurse. [facility] Primary Care [address] [place] [id number] [facility] [address] [place] [id number] Thank you for choosing the [facility] emergency department in [place] for your medical needs today. It was a pleasure caring for you. Today you were seen in the emergency department for COVID exposure. 1. Today your COVID screening is negative. Please stay quarantined until you have your state testing as this could be a false negative. 2. Please use the inhaler 2 puffs every 4 hours as needed for your respiratory symptoms. You can take Tylenol for pain and fever management. 3. We encourage you to follow up with your primary care provider and/or recommended specialist in the next few days for re-evaluation and further care/management. If your symptoms should worsen, new symptoms develop or any of the signs and symptoms we discussed should arise please return to the emergency room or call 911 (if needed). Sepsis Event Note (ED) - Focused Exam Vital Signs: Vital Signs Temp Pulse Resp BP Pulse Ox 04/28/20 13:33 96.2 F L 127 H 22 H 119/76 96 - My Orders Last 24 Hours: My Active Orders 04/28/20 13:45 CORONAVIRUS COVID-19 PCR [facility] Stat - Assessment/Plan Last 24 Hours: My Active Orders 04/28/20 13:45 CORONAVIRUS COVID-19 PCR [facility] Stat
== END 2020-04-28 14:41 | disposition home or self-care (01) ==
LOC: MW.ED 13:22
DX: O99.513 Diseases of the respiratory system complicating pregnancy, third trimester (principal); J06.9 Acute upper respiratory infection, unspecified; Z20.828 Contact with and (suspected) exposure to other viral communicable diseases; Z3A.33 33 weeks gestation of pregnancy
CPT/HCPCS: 99283; U0002

== ENCOUNTER 2020-05-10 13:51 | Observation (INO) | payer OTHER ==
[2020-05-10] MEDS ORDERED: Lactated Ringers 1,000 ML IV SCH (15:00)
--- NOTE | 2020-05-10 16:51 | US ---
INDICATION: contractions TECHNIQUE: Limited grayscale and color Doppler imaging the cervix and fetus COMPARISON: None FINDINGS: Sonographic imaging demonstrates a single living intrauterine gestation. Fetus demonstrates a regular cardiac rate of 138 beats per minute. Fetus has a cephalic orientation. The placenta lies anterior without evidence of placenta previa. The cervical length is 4.1 cm. The cervix is closed. IMPRESSION: The cervix is closed and measures 4.1 cm in length. Living intrauterine gestation with heart rate of 138 beats per minute. Dictated by Mindy Foster MD @ May 10 2020 4:49PM Signed by Dr. Mindy Foster @ May 10 2020 4:49PM
[2020-05-10] MEDS ORDERED: Nitrofurantoin Monohydrate/Macrocrystalline 100 MG Cap PO SCH (17:45)
[2020-05-10] MEDS ORDERED: NIFEdipine 30 MG Tab.ER PO SCH (17:45)
== END 2020-05-10 18:00 | disposition home or self-care (01) ==
LOC: MW.OBCHECK 13:51 → MW.OB 13:51 → MW.OBCHECK 14:50
PROVIDERS: ADMIT Obstetrics & Gynecology; ATTEND Advanced Practice Midwife
DX: O60.03 Preterm labor without delivery, third trimester (principal); Z3A.34 34 weeks gestation of pregnancy
CPT/HCPCS: 59025; 76817; 81003; A9270; G0378; J7120

== ENCOUNTER 2020-05-29 11:27 | Inpatient (IN) | payer OTHER, SELFPAY ==
[2020-05-29] MEDS ORDERED: Lidocaine 1% 50 ML MDV INJECT PRN (12:58)
[2020-05-29] MEDS ORDERED: Methylergonovine 0.2 MG/1 ML Amp IM PRN (12:58)
[2020-05-29] MEDS ORDERED: Misoprostol 200 MCG Tab PO PRN (12:58)
[2020-05-29] MEDS ORDERED: Sodium Chloride 0.9% 10 ML SDV IV PRN (12:58)
[2020-05-29] MEDS ORDERED: Carboprost Tromethamine 250 MCG/1 ML Amp IM PRN (12:58)
[2020-05-29] MEDS ORDERED: Water For Irrigation,Sterile 1,000 ML Container IRR PRN (12:58)
[2020-05-29] MEDS ORDERED: Sodium Chloride 0.9% 2.5 ML Syringe FLUSH PRN (12:58)
[2020-05-29] MEDS ORDERED: Ondansetron 4 MG/2 ML SDV IVPUSH PRN (12:58)
[2020-05-29] MEDS ORDERED: Tranexamic Acid 1,000 MG in Sodium Chloride 0.9% 100 ML IV PRN (12:58)
[2020-05-29] MEDS ORDERED: Sodium Chloride 0.9% 10 ML Syringe FLUSH PRN (12:58)
[2020-05-29] MEDS ORDERED: Oxytocin/0.9 % Sodium Chloride 30 UNIT/500 ML BAG IV SCH (13:00)
[2020-05-29] MEDS ORDERED: Ampicillin 2 GM in Sodium Chloride 0.9% 100 ML IV ONE (14:00)
--- NOTE | 2020-05-29 14:08 | PCM.LDHP ---
L&D History of Present Illness - General Date of Service: 05/29/20 Admit Problem/Dx: Patient Status Order with Admit Dx/Problem 05/29/20 12:03 Patient Status [ADT] Routine 05/29/20 12:58 Patient Status [ADT] Routine Admission Diagnosis/Problem Admission Diagnosis/Problem 05/29/20 14:03 presenting to L&D at 37 5/7 weeks (DESIRE: 06/14/20) with complaints of loss of fluid; amnisure positive. SVE per nurse reports 1cm/90%/-3. Angela approximately every 6-8 minutes. GBS positive; Rubella immunes; O- Source of Information: Patient History Limitations: Reports: No Limitations - Related Data Allergies/Adverse Reactions: Allergies Allergy/AdvReac Type Severity Reaction Status Date / Time No Known Allergies Allergy Verified 05/29/20 13:38 Home Medications: Home Meds Pnv No.95/Ferrous Fum/Folic AC [ Caplet] 1 tab PO DAILY 04/10/20 [History] Albuterol [Ventolin HFA] 2 puff INH Q4H PRN #1 inh 04/28/20 [Rx] NIFEdipine [Procardia Xl] 30 mg PO DAILY 05/29/20 [History] Past Medical History - Past Health History Medical/Surgical History: Denies Medical/Surgical History HEENT History: Reports: None Cardiovascular History: Reports: None Respiratory History: Reports: None Gastrointestinal History: Reports: None Genitourinary History: Reports: None 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 Musculoskeletal History: Reports: None Neurological History: Reports: None Psychiatric History: Reports: Anxiety, Bipolar, Depression, PTSD Endocrine/Metabolic History: Reports: None Hematologic History: Reports: None Immunologic History: Reports: None Oncologic (Cancer) History: Reports: None Dermatologic History: Reports: None - Infectious Disease History Infectious Disease History: Reports: None - Past Surgical History Head Surgeries/Procedures: Reports: None HEENT Surgical History: Reports: Adenoidectomy, Oral Surgery Social & Family History - Family History Family Medical History: Noncontributory Endocrine/Metabolic: Reports: Diabetes, Type I Oncologic: Reports: Leukemia - Caffeine Use Caffeine Use: Reports: Coffee, Energy Drinks H&P Review of Systems - Review of Systems: Review Of Systems: See Below General: Reports: No Symptoms HEENT: Reports: No Symptoms Pulmonary: Reports: No Symptoms Cardiovascular: Reports: No Symptoms Gastrointestinal: Reports: No Symptoms Genitourinary: Reports: No Symptoms Musculoskeletal: Reports: No Symptoms Skin: Reports: No Symptoms Psychiatric: Reports: No Symptoms Neurological: Reports: No Symptoms Hematologic/Lymphatic: Reports: No Symptoms Immunologic: Reports: No Symptoms L&D Exam - Exam Exam: See Below - Vital Signs Weight: 292 lb - OB Specific Movement: Active Heart Tones: Present Heart Rate (FHR) Variability: Moderate (6-25 bmp) - Donaldson Score Donaldson Score Cervix Position: Posterior Donaldson Score Consistency: Soft Donaldson Score Effacement: >80% Donaldson Score Dilation: 1-2 cm Donaldson Score 's Station: -3 Donaldson Score Total: 6 - Exam General: Alert, Oriented, Cooperative Lungs: Normal Respiratory Effort Rectal Exam: Deferred Genitourinary: Deferred Back Exam: Full Range of Motion Extremities: Normal Range of Motion, Non-Tender Skin: Warm, Dry, Intact Neurological: Strength Equal Bilateral, Normal Gait, Normal Speech, Normal Tone, Sensation Intact Psychiatric: Alert, Normal Affect, Normal Mood - Patient Data Lab Results Last 24 hrs: Laboratory Results - last 24 hr 05/29/20 Range/Units 11:58 Membrane Rupture POSITIVE - Problem List (1) Supervision of normal IUP (intrauterine ) in primigravida SNOMED Code(s): 88210856, 631240812, 163164765, 403256085 ICD Code: Z34.00 - ENCNTR FOR SUPRVSN OF NORMAL FIRST , UNSP TRIMESTER Status: Acute Priority: High Current Visit: Yes Qualifiers: Trimester: third trimester Qualified Code(s): Z34.03 - Encounter for supervision of normal first , third trimester (2) Morbid obesity with BMI of 40.0-44.9, adult SNOMED Code(s): 135721090, 12168579168693 ICD Code: E66.01 - MORBID (SEVERE) OBESITY DUE TO EXCESS CALORIES; Z68.41 - BODY MASS INDEX [BMI]40.0-44.9, ADULT Status: Acute Priority: High Current Visit: Yes Problem List Initiated/Reviewed/Updated: Yes Orders Last 24hrs: Active Orders 24 hr Category Date Time Status Patient Status [ADT] Routine ADT 05/29/20 12:58 Active Heart Tones [RC] CONTINUOUS Care 05/29/20 12:58 Active Non Stress Test [RC] PER UNIT ROUTINE Care 05/29/20 12:03 Active May Shower [RC] ASDIRECTED Care 05/29/20 12:58 Active Notify Provider [RC] PRN Care 05/29/20 12:58 Active Peripheral IV Care [RC] PRN Care 05/29/20 12:58 Active Up ad Lakia [RC] ASDIRECTED Care 05/29/20 12:03 Active Vaginal Exam [RC] Click to Edit Care 05/29/20 12:03 Active Vital Signs [RC] PER UNIT ROUTINE Care 05/29/20 12:03 Active Regular Diet [DIET] Diet 05/29/20 Lunch Active CBC W/O DIFF,HEMOGRAM [HEME] Routine Lab 05/29/20 12:58 Ordered CORONAVIRUS COVID-19 PCR [facility] Urgent Lab 05/29/20 13:05 Ordered RPR (SYPHILIS SERO) W/ RFLX [REF] Routine Lab 05/29/20 12:58 Ordered TYPE AND SCREEN [BBK] Routine Lab 05/29/20 12:58 Ordered Ampicillin 1 gm Med 05/29/20 18:00 Active Sodium Chloride 0.9% [Normal Saline] 50 ml IV Q4H Ampicillin 2 gm Med 05/29/20 14:00 Active Sodium Chloride 0.9% [Normal Saline] 100 ml IV ONETIME Butorphanol [Stadol] Med 05/29/20 12:58 Active 1 mg IVPUSH Q1H PRN Carboprost Tromethamine [Hemabate DS] Med 05/29/20 12:58 Active 250 mcg IM ASDIRECTED PRN Lactated Ringers [Ringers, Lactated] 1,000 ml Med 05/29/20 13:00 Active IV ASDIRECTED Lidocaine 1% [Xylocaine 1%] Med 05/29/20 12:58 Active 50 ml INJECT ONETIME PRN Methylergonovine [Methergine] Med 05/29/20 12:58 Active 0.2 mg IM ASDIRECTED PRN Ondansetron [Zofran] Med 05/29/20 12:58 Active 4 mg IVPUSH Q6H PRN Oxytocin/0.9 % Sodium Chloride [Oxytocin 30 Unit/500 ML Med 05/29/20 13:00 Active -NS] 30 unit in 500 ml IV TITRATE Sodium Chloride 0.9% [Normal Saline] Med 05/29/20 12:58 Active 10 ml IV ASDIRECTED PRN Sodium Chloride 0.9% [Saline Flush] Med 05/29/20 12:58 Active 10 ml FLUSH ASDIRECTED PRN Sodium Chloride 0.9% [Saline Flush] Med 05/29/20 12:58 Active 2.5 ml FLUSH ASDIRECTED PRN Tranexamic Acid [Cyklokapron] 1,000 mg Med 05/29/20 12:58 Active Sodium Chloride 0.9% [Normal Saline] 100 ml IV ONETIME Water For Irrigation,Sterile [Sterile Water for Med 05/29/20 12:58 Active Irrigation] 1,000 ml IRR ASDIRECTED PRN miSOPROStoL [Cytotec] Med 05/29/20 12:58 Active 200 mcg PO ONETIME PRN Scalp Electrode [WOMSER] Per Unit Routine Oth 05/29/20 12:58 Ordered Peripheral IV Insertion Adult [OM.PC] Routine Oth 05/29/20 12:58 Ordered Resuscitation Status Routine Resus Stat 05/29/20 12:03 Ordered Medication Orders Butorphanol Tartrate (Stadol) 1 mg IVPUSH Q1H PRN PRN Reason: Pain Carboprost Tromethamine (Hemabate Ds) 250 mcg IM ASDIRECTED PRN PRN Reason: Post Hemorrhage Lactated Ringer's (Ringers, Lactated) 1,000 mls @ 150 mls/hr IV ASDIRECTED ZINA Oxytocin/Sodium Chloride (Oxytocin 30 Unit/500 Ml-Ns) 30 unit in 500 mls @ 999 mls/hr IV TITRATE ZINA Tranexamic Acid 1,000 mg/ (Sodium Chloride) 110 mls @ 660 mls/hr IV ONETIME PRN PRN Reason: Bleeding Ampicillin Sodium 2 gm/ Sodium (Chloride) 100 mls @ 200 mls/hr IV ONETIME ONE Stop: 05/29/20 14:29 Ampicillin Sodium 1 gm/ Sodium (Chloride) 50 mls @ 100 mls/hr IV Q4H ZINA Lidocaine HCl (Xylocaine 1%) 50 ml INJECT ONETIME PRN PRN Reason: Laceration repair Methylergonovine Maleate (Methergine) 0.2 mg IM ASDIRECTED PRN PRN Reason: Post Hemorrhage Misoprostol (Cytotec) 200 mcg PO ONETIME PRN PRN Reason: Post Hemorrhage Ondansetron HCl (Zofran) 4 mg IVPUSH Q6H PRN PRN Reason: Nausea/Vomiting Sodium Chloride (Saline Flush) 10 ml FLUSH ASDIRECTED PRN PRN Reason: Keep Vein Open Sodium Chloride (Saline Flush) 2.5 ml FLUSH ASDIRECTED PRN PRN Reason: Keep Vein Open Sodium Chloride (Normal Saline) 10 ml IV ASDIRECTED PRN PRN Reason: IV Use Sterile Water (Sterile Water For Irrigation) 1,000 ml IRR ASDIRECTED PRN PRN Reason: delivery Assessment/Plan Comment:: Admit A: presenting to L&D at 37 5/7 weeks (DESIRE: 06/14/20) with complaints of loss of fluid; amnisure positive. SVE per nurse reports 1cm/90%/-3. Angela approximately every 6-8 minutes. GBS positive; Rubella immunes; O- P: Admit for labor; start GBS prophylaxis, NKDA; anticipate ; epidural PRN; Dr. Raman updated.
[2020-05-29] MEDS: Lactated Ringers 1,000 ML IV SCH (14:50)
[2020-05-29] MEDS: Ampicillin 1 GM in Sodium Chloride 0.9% 50 ML IV SCH (19:11)
[2020-05-29] MEDS ORDERED: Misoprostol 50 MCG (1/2 of 100 MCG) Tab PO ONE (20:15)
[2020-05-30] MEDS: Butorphanol 1 MG/ML SDV IVPUSH PRN ×2 (00:04→01:31)
[2020-05-30] MEDS: Ampicillin 1 GM in Sodium Chloride 0.9% 50 ML IV SCH ×5 (00:07→12:30)
[2020-05-30] MEDS ORDERED: Oxytocin/0.9 % Sodium Chloride 30 UNIT/500 ML BAG IV SCH (01:00)
[2020-05-30] MEDS: Lactated Ringers 1,000 ML IV SCH ×2 (01:54→04:08)
[2020-05-30] MEDS ORDERED: fentaNYL 100 MCG/2 ML SDV ONE ×3 (04:08→12:49)
[2020-05-30] MEDS ORDERED: Ropivacaine HCl/PF 100 ML ONE ×2 (04:08→12:49)
[2020-05-30] MEDS ORDERED: Ropivacaine 0.2% PF 2 MG/ML 20 ML SDV ONE (04:08)
--- NOTE | 2020-05-30 05:09 | PCM.PREANE ---
Preanesthetic Assessment - Anesthesia/Transfusion/Family Hx Anesthesia History: Prior Anesthesia Without Reaction Family History of Anesthesia Reaction: No Transfusion History: No Prior Transfusion(s) Intubation History: Unknown - Review of Systems General: Other (Morbid Obesity) Other: Reports: Anxiety - Physical Assessment NPO Status Date: 05/30/20 NPO Status Time: 03:30 (Liquids) Height: 1.73 m Weight: 132.449 kg ASA Class: 3 Mental Status: Alert & Oriented x3 Airway Class: Mallampati = 2 Dentition: Reports: Normal Dentition ROM/Head Extension: Full Lungs: Clear to Auscultation Cardiovascular: Regular Rate - Lab Values: Laboratory Last Values WBC 11.86 K/uL (4.0-11.0) H 05/29/20 14:00 RBC 4.11 M/uL (4.30-5.90) L 05/29/20 14:00 Hgb 11.8 g/dL (12.0-16.0) L 05/29/20 14:00 Hct 35.8 % (36.0-46.0) L 05/29/20 14:00 MCV 87.1 fL (80.0-98.0) 05/29/20 14:00 MCH 28.7 pg (27.0-32.0) 05/29/20 14:00 MCHC 33.0 g/dL (31.0-37.0) 05/29/20 14:00 RDW Std Deviation 42.2 fl (28.0-62.0) 05/29/20 14:00 RDW Coeff of Sherita 13 % (11.0-15.0) 05/29/20 14:00 Plt Count 281 K/uL (150-400) 05/29/20 14:00 MPV 10.70 fL (7.40-12.00) 05/29/20 14:00 Nucleated RBC % 0.0 /100WBC 05/29/20 14:00 Nucleated RBCs # 0 K/uL 05/29/20 14:00 Membrane Rupture POSITIVE 05/29/20 11:58 SARS-CoV-2 RNA (JITENDRA) NEGATIVE (NEGATIVE) 05/29/20 15:15 Blood Type O NEGATIVE 05/29/20 14:00 Antibody Screen NEGATIVE 05/29/20 14:00 - Allergies Allergies/Adverse Reactions: Allergies Allergy/AdvReac Type Severity Reaction Status Date / Time No Known Allergies Allergy Verified 05/29/20 13:38 - Blood Blood Available: No Product(s) Available: None - Anesthesia Plan Pre-Op Medication Ordered: None - Acknowledgements Anesthesia Type Planned: Epidural Pt an Appropriate Candidate for the Planned Anesthesia: Yes Alternatives and Risks of Anesthesia Discussed w Pt/Guardian: Yes Pt/Guardian Understands and Agrees with Anesthesia Plan: Yes Additional Comments: Discussed. ? answered. permit signed. Wishes to proceed. 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 Musculoskeletal History: Reports: None Neurological History: Reports: None Psychiatric History: Reports: Anxiety, Bipolar, Depression, PTSD Endocrine/Metabolic History: Reports: None Hematologic History: Reports: None Immunologic History: Reports: None Oncologic (Cancer) History: Reports: None Dermatologic History: Reports: None - Infectious Disease History Infectious Disease History: Reports: None - Past Surgical History Head Surgeries/Procedures: Reports: None HEENT Surgical History: Reports: Adenoidectomy, Oral Surgery - HOME MEDS Home Medications: Home Meds Pnv No.95/Ferrous Fum/Folic AC [ Caplet] 1 tab PO DAILY 04/10/20 [History] Albuterol [Ventolin HFA] 2 puff INH Q4H PRN #1 inh 04/28/20 [Rx] NIFEdipine [Procardia Xl] 30 mg PO DAILY 05/29/20 [History] - CURRENT (IN HOUSE) MEDS Current Meds: Current Medications Butorphanol Tartrate (Stadol) 1 mg IVPUSH Q1H PRN PRN Reason: Pain Last Admin: 05/30/20 01:31 Dose: 1 mg Documented by: Carboprost Tromethamine (Hemabate Ds) 250 mcg IM ASDIRECTED PRN PRN Reason: Post Hemorrhage Lactated Ringer's (Ringers, Lactated) 1,000 mls @ 150 mls/hr IV ASDIRECTED ZINA Last Admin: 05/30/20 04:08 Dose: 999 mls/hr Documented by: Oxytocin/Sodium Chloride (Oxytocin 30 Unit/500 Ml-Ns) 30 unit in 500 mls @ 999 mls/hr IV TITRATE [facility] Tranexamic Acid 1,000 mg/ (Sodium Chloride) 110 mls @ 660 mls/hr IV ONETIME PRN PRN Reason: Bleeding Ampicillin Sodium 1 gm/ Sodium (Chloride) 50 mls @ 100 mls/hr IV Q4H ZINA Last Admin: 05/30/20 04:15 Dose: 100 mls/hr Documented by: Oxytocin/Sodium Chloride (Oxytocin 30 Unit/500 Ml-Ns) 30 unit in 500 mls @ 2 mls/hr IV TITRATE [facility]; Protocol Last Infusion: 05/30/20 02:33 Dose: 6 munits/min, 6 mls/hr Documented by: Lidocaine HCl (Xylocaine 1%) 50 ml INJECT ONETIME PRN PRN Reason: Laceration repair Methylergonovine Maleate (Methergine) 0.2 mg IM ASDIRECTED PRN PRN Reason: Post Hemorrhage Misoprostol (Cytotec) 200 mcg PO ONETIME PRN PRN Reason: Post Hemorrhage Ondansetron HCl (Zofran) 4 mg IVPUSH Q6H PRN PRN Reason: Nausea/Vomiting Sodium Chloride (Saline Flush) 10 ml FLUSH ASDIRECTED PRN PRN Reason: Keep Vein Open Sodium Chloride (Saline Flush) 2.5 ml FLUSH ASDIRECTED PRN PRN Reason: Keep Vein Open Sodium Chloride (Normal Saline) 10 ml IV ASDIRECTED PRN PRN Reason: IV Use Sterile Water (Sterile Water For Irrigation) 1,000 ml IRR ASDIRECTED PRN PRN Reason: delivery Discontinued Medications Fentanyl (Sublimaze) Confirm Administered Dose 100 mcg .ROUTE .STK-MED ONE Stop: 05/30/20 04:09 Ampicillin Sodium 2 gm/ Sodium (Chloride) 100 mls @ 200 mls/hr IV ONETIME ONE Stop: 05/29/20 14:29 Last Admin: 05/29/20 15:00 Dose: 200 mls/hr Documented by: Ropivacaine (Naropin 0.2%) Confirm Administered Dose 100 mls @ as directed .ROUTE .STK-MED ONE Stop: 05/30/20 04:09 Misoprostol (Cytotec) 50 mcg PO ONETIME ONE Stop: 05/29/20 20:16 Last Admin: 05/29/20 20:40 Dose: 50 mcg Documented by: Ropivacaine (Naropin 0.2%) Confirm Administered Dose 20 ml .ROUTE .[facility] Stop: 05/30/20 04:09
--- NOTE | 2020-05-30 05:16 | PCM.SN.2 ---
- Free Text/Narrative Note: Requested for NITZA , BMI 44.4. Procedure difficult due to patients anxiety and inability to hold still. 2 puncture sites due to inability to ID landmarks. Space I'd on 2nd pass on midline puncture site. Unable to seat needle in other puncture site. Tolerated procedure well. Pain 0/10 post bolus.
[2020-05-30] MEDS ORDERED: Bupivacaine 0.5% 30 ML SDV ONE (10:39)
--- NOTE | 2020-05-30 10:51 | PCM.SN.2 ---
- Free Text/Narrative Note: Complete, 0 station. Having some discomfort 11/04. Marcaine 0.5% 4ml + 100 mcg fentanyl slowly. Discomfort / 5 minutes post.
--- NOTE | 2020-05-30 12:57 | PCM.PRNOTE ---
- Free Text/Narrative Note: Anes Note Epidural bag change. Epidural infusion is complete. A new bag of 100 cc 0.2% ropivicaine with 1 mcg cc fentanyl was placed. Rate is 8 cc hr with 6 cc q 20 min prn bolus. Patient reports excellent analgesia. Time with patient [id number] Bryce Chu CRNA
[2020-05-30] MEDS ORDERED: oxyCODONE 5 MG Tab PO PRN (13:15)
[2020-05-30] MEDS ORDERED: Docusate Sodium 100 MG Cap PO PRN (13:15)
[2020-05-30] MEDS ORDERED: Lanolin 100% Cream 7 GM Tube TOP PRN (13:15)
[2020-05-30] MEDS ORDERED: Acetaminophen 500 MG Tab PO PRN (13:15)
[2020-05-30] MEDS ORDERED: Bisacodyl 10 MG Supp RECTAL PRN (13:15)
[2020-05-30] MEDS ORDERED: Benzocaine/Menthol 20%-0.5% Spray 78 GM Cannister TOP PRN (13:15)
[2020-05-30] MEDS ORDERED: Ibuprofen 400 MG Tab PO PRN (13:15)
[2020-05-30] MEDS ORDERED: Witch Hazel Medicated Pads 40/Jar TOP PRN (13:15)
[2020-05-30] MEDS: Ibuprofen 800 MG Tab PO PRN (15:47)
[2020-05-31] MEDS: Acetaminophen 500 MG Tab PO PRN (04:12)
--- NOTE | 2020-05-31 07:34 | OR ---
SURGEON: Marino Raman MD DATE OF PROCEDURE: 05/30/2020 Ms. Mccabe is 25, primigravida. She is followed in our clinic jointly by myself and [facility]. She is term. She is admitted in active labor with spontaneous rupture of the membrane and she is GBS-positive, so she was started on antibiotic according to the protocol and then, she was started on first Cytotec and then Pitocin. She responded to it, she progressed to 5 cm. She had epidural anesthesia for labor analgesia, and the patient after that continued to progress. She was complete, complete at 10:30 this morning, and then, after she started feeling pressure, she pushed, and she was able to accomplish normal spontaneous vaginal delivery. Delivering of the head was accomplished without any problem and there was a tight nuchal cord and there was 45 second shoulder dystocia relieved immediately by rotating the shoulder. Rest of the baby delivered without any problem. The fetus required some resuscitation. The score is not available at the time and the weight is not available at the time of dictation. The placenta delivered spontaneous, complete, and intact, and there was no vaginal or labial tear. Estimated blood loss was 300 to 400 mL. heart rate was category 1 through the entire process of labor. There was no complication in the labor and the delivery of this fetus. SHARAN / CLAY /[id number]
[2020-05-31] MEDS: Ibuprofen 800 MG Tab PO PRN ×3 (08:29→20:39)
--- NOTE | 2020-05-31 12:38 | PCM48HPAN ---
Post Anesthesia Note - EVALUATION WITHIN 48HRS OF ANESTHETIC Vital Signs in Normal Range: Yes Patient Participated in Evaluation: Yes Respiratory Function Stable: Yes Airway Patent: Yes Cardiovascular Function Stable: Yes Hydration Status Stable: Yes Pain Control Satisfactory: Yes Nausea and Vomiting Control Satisfactory: Yes Mental Status Recovered: Yes Vital Signs: Last Vital Signs Temp 36.2 C 05/31/20 09:11 Pulse 102 H 05/31/20 09:11 Resp 16 05/31/20 09:11 BP 122/72 05/31/20 09:11 Pulse Ox 95 05/31/20 09:11 - COMMENTS/OBSERVATIONS Free Text/Narrative:: Doing well.
--- NOTE | 2020-05-31 17:20 | PCM.PNPP ---
- General Info Date of Service: 05/31/20 Admission Dx/Problem (Free Text): Patient Status Order with Admit Dx/Problem 05/29/20 12:03 Patient Status [ADT] Routine 05/29/20 12:58 Patient Status [ADT] Routine Admission Diagnosis/Problem Admission Diagnosis/Problem 05/29/20 14:03 Dilcia is a 25 yo PPD1 S/P to term NBM. O neg/O pos, RI, GBS pos with adequate ampicillin prophylaxis prior to . Patient has no complaints or concerns at this time. Patient is feeding baby well, resting comfortably in bed. Patient reports she is eating, voiding, ambulating independently and without difficulty. Patient denies any problems or concerns at this time except mild-moderate intermittent uterine cramping relieved with Ibuprofen and Tylenol. Patient reports small to moderate vaginal bleeding with no clots. Dr. Raman present at bedside this am to assess patient progress. Functional Status: Reports: Pain Controlled - Review of Systems General: Reports: No Symptoms HEENT: Reports: No Symptoms Pulmonary: Reports: No Symptoms Cardiovascular: Reports: No Symptoms Gastrointestinal: Reports: No Symptoms Genitourinary: Reports: No Symptoms Musculoskeletal: Reports: No Symptoms Skin: Reports: No Symptoms Neurological: Reports: No Symptoms Psychiatric: Reports: No Symptoms - General Info Date of Service: 05/31/20 - Patient Data Vital Signs - Most Recent: Last Vital Signs Temp 97.4 F 05/31/20 16:21 Pulse 94 05/31/20 16:21 Resp 16 05/31/20 16:21 BP 121/73 05/31/20 16:21 Pulse Ox 100 05/31/20 16:21 Weight - Most Recent: 292 lb I&O - Last 24 Hours: Intake & Output 05/31/20 05/31/20 05/31/20 06:59 14:59 22:59 Intake Total 2 Balance 2 Lab Results - Last 24 Hours: Laboratory Results - last 24 hr 05/29/20 05/30/20 05/31/20 Range/Units 14:00 17:16 05:33 Hgb 9.8 L (12.0-16.0) g/dL Hct 29.6 L (36.0-46.0) % RPR Non-Reac (Non-Reac) Antibody Screen NEGATIVE Screen NEGATIVE (NEGATIVE) RhIG Candidate? YES Rhogam Indicated YES, BABY RH POS H Med Orders - Current: Current Medications Acetaminophen (Tylenol Extra Strength) 500 mg PO Q4H PRN PRN Reason: Pain Last Admin: 05/31/20 00:28 Dose: 500 mg Documented by: Acetaminophen (Tylenol Extra Strength) 1,000 mg PO Q4H PRN PRN Reason: Pain Last Admin: 05/31/20 04:12 Dose: 1,000 mg Documented by: Benzocaine/Menthol (Dermoplast Pain Relief 20%-0.5% [place]) 78 gm TOP ASDIRECTED PRN PRN Reason: Perineal Comfort Measure Bisacodyl (Dulcolax) 10 mg RECTAL ONETIME PRN PRN Reason: Constipation Butorphanol Tartrate (Stadol) 1 mg IVPUSH Q1H PRN PRN Reason: Pain Last Admin: 05/30/20 01:31 Dose: 1 mg Documented by: Carboprost Tromethamine (Hemabate Ds) 250 mcg IM ASDIRECTED PRN PRN Reason: Post Hemorrhage Docusate Sodium (Colace) 100 mg PO BID PRN PRN Reason: Constipation Last Admin: 05/31/20 08:29 Dose: 100 mg Documented by: Emollient Ointment (Lansinoh Hpa) 0 gm TOP ASDIRECTED PRN PRN Reason: Sore Nipples Lactated Ringer's (Ringers, Lactated) 1,000 mls @ 150 mls/hr IV ASDIRECTED ZINA Last Infusion: 05/30/20 04:15 Dose: 150 mls/hr Documented by: Oxytocin/Sodium Chloride (Oxytocin 30 Unit/500 Ml-Ns) 30 unit in 500 mls @ 999 mls/hr IV TITRATE ZINA Tranexamic Acid 1,000 mg/ (Sodium Chloride) 110 mls @ 660 mls/hr IV ONETIME PRN PRN Reason: Bleeding Oxytocin/Sodium Chloride (Oxytocin 30 Unit/500 Ml-Ns) 30 unit in 500 mls @ 2 mls/hr IV TITRATE ZINA; Protocol Last Infusion: 05/30/20 13:30 Dose: 500 munits/min, 500 mls/hr Documented by: Ampicillin Sodium 1 gm/ Sodium (Chloride) 50 mls @ 100 mls/hr IV Q4H ZINA Last Admin: 05/30/20 12:30 Dose: 100 mls/hr Documented by: Ibuprofen (Motrin) 400 mg PO Q4H PRN PRN Reason: Pain Ibuprofen (Motrin) 800 mg PO Q6H PRN PRN Reason: Pain Last Admin: 05/31/20 14:39 Dose: 800 mg Documented by: Lidocaine HCl (Xylocaine 1%) 50 ml INJECT ONETIME PRN PRN Reason: Laceration repair Methylergonovine Maleate (Methergine) 0.2 mg IM ASDIRECTED PRN PRN Reason: Post Hemorrhage Misoprostol (Cytotec) 200 mcg PO ONETIME PRN PRN Reason: Post Hemorrhage Ondansetron HCl (Zofran) 4 mg IVPUSH Q6H PRN PRN Reason: Nausea/Vomiting Oxycodone HCl (Oxycodone) 5 mg PO Q2H PRN PRN Reason: Pain Polysaccharide Iron Complex (Ferrex 150) 150 mg PO BID ZINA Sodium Chloride (Saline Flush) 10 ml FLUSH ASDIRECTED PRN PRN Reason: Keep Vein Open Sodium Chloride (Saline Flush) 2.5 ml FLUSH ASDIRECTED PRN PRN Reason: Keep Vein Open Sodium Chloride (Normal Saline) 10 ml IV ASDIRECTED PRN PRN Reason: IV Use Sterile Water (Sterile Water For Irrigation) 1,000 ml IRR ASDIRECTED PRN PRN Reason: delivery Witch [place] (Tucks) 1 pad TOP ASDIRECTED PRN PRN Reason: comfort care Discontinued Medications Bupivacaine HCl (Marcaine 0.5%) Confirm Administered Dose 30 ml .ROUTE .STK-MED ONE Stop: 05/30/20 10:40 Fentanyl (Sublimaze) Confirm Administered Dose 100 mcg .ROUTE .STK-MED ONE Stop: 05/30/20 04:09 Last Admin: 05/30/20 05:53 Dose: Not Given Documented by: Fentanyl (Sublimaze) Confirm Administered Dose 100 mcg .ROUTE .STK-MED ONE Stop: 05/30/20 10:40 Fentanyl (Sublimaze) Confirm Administered Dose 100 mcg .ROUTE .STK-MED ONE Stop: 05/30/20 12:50 Ampicillin Sodium 2 gm/ Sodium (Chloride) 100 mls @ 200 mls/hr IV ONETIME ONE Stop: 05/29/20 14:29 Last Admin: 05/29/20 15:00 Dose: 200 mls/hr Documented by: Ampicillin Sodium 1 gm/ Sodium (Chloride) 50 mls @ 100 mls/hr IV Q4H ZINA Last Admin: 05/30/20 07:40 Dose: Not Given Documented by: Ropivacaine (Naropin 0.2%) Confirm Administered Dose 100 mls @ as directed .ROUTE .STK-MED ONE Stop: 05/30/20 04:09 Last Admin: 05/30/20 05:53 Dose: Not Given Documented by: Ropivacaine (Naropin 0.2%) Confirm Administered Dose 100 mls @ as directed .ROUTE .STK-MED ONE Stop: 05/30/20 12:50 Misoprostol (Cytotec) 50 mcg PO ONETIME ONE Stop: 05/29/20 20:16 Last Admin: 05/29/20 20:40 Dose: 50 mcg Documented by: Ropivacaine (Naropin 0.2%) Confirm Administered Dose 20 ml .ROUTE .STK-MED ONE Stop: 05/30/20 04:09 Last Admin: 05/30/20 05:53 Dose: Not Given Documented by: - Interaction Disposition, : to Nursery Infant Interaction: Not Applicable Infant Feeding: Encouraged to Breastfeed Support Person: Significant Other - Recovery Exam Fundal Tone: Firm Fundal Level: At Umbilicus Fundal Placement: Midline Lochia Amount: Small Lochia Color: Rubra/Red Perineum Description: Intact, Minimal Bruising/Swelling Bladder Status: Voiding Urinary Elimination: Voided - Exam General: Alert, Oriented, Cooperative, No Acute Distress HEENT: Pupils Equal, Pupils Reactive Neck: Supple Lungs: Clear to Auscultation, Normal Respiratory Effort Cardiovascular: Regular Rate, Regular Rhythm GI/Abdominal Exam: Normal Bowel Sounds, Soft, Non-Tender, No Organomegaly, No Distention Extremities: Normal Inspection, Normal Range of Motion, Non-Tender, No Pedal Edema, Normal Capillary Refill Skin: Warm, Dry, Intact Neurological: No New Focal Deficit Psy/Mental Status: Alert, Normal Affect, Normal Mood - Problem List & Annotations (1) (spontaneous vaginal delivery) SNOMED Code(s): 776155680 Code(s): O80 - ENCOUNTER FOR FULL-TERM UNCOMPLICATED DELIVERY Status: Acute Priority: High Current Visit: Yes - Problem List Review Problem List Initiated/Reviewed/Updated: Yes - My Orders Last 24 Hours: My Active Orders 05/31/20 21:00 Iron Polysaccharides Complex [Ferrex 150] 150 mg PO BID - Plan Plan:: Hemodynamically stable, afebrile. Hemoglobin 9.8, start BID iron supplementation, F/U as indicated. Continue eating, voiding, ambulating, feeding baby independently. Plan to D/C in am. Dr. Raman verbalized POC, patient agreeable.
[2020-05-31] MEDS ORDERED: Iron Polysaccharides Complex 150 MG Cap PO SCH (21:00)
[2020-06-01] MEDS: Acetaminophen 500 MG Tab PO PRN (02:02)
[2020-06-01] MEDS: Ibuprofen 800 MG Tab PO PRN (08:15)
--- NOTE | 2020-06-01 10:11 | PCM.DCSUM1 ---
Discharge Summary - Hospital Course Free Text/Narrative:: Dilcia is a 25 yo PPD2 S/P to term NBM. O neg/O pos, RI, GBS pos with adequate ampicillin prophylaxis prior to . Patient has no complaints or concerns at this time. Patient is bottle and breast feeding baby well, resting comfortably in chair with quielty in arms. Patient reports she is eating, voiding, ambulating independently and without difficulty. Patient denies any problems or concerns at this time except mild-moderate intermittent uterine cramping relieved with Ibuprofen and Tylenol. Patient reports moderate vaginal bleeding with no clots. Patient expresses the desire to be discharged home today. Diagnosis: Stroke: No - Discharge Data Discharge Date: 06/01/20 Discharge Disposition: Home, Self-Care 01 Condition: Good - Referral to Home Health Primary Care Physician: PCP None - Discharge Diagnosis/Problem(s) (1) (spontaneous vaginal delivery) SNOMED Code(s): 560031764 ICD Code: O80 - ENCOUNTER FOR FULL-TERM UNCOMPLICATED DELIVERY Status: Acute Priority: High Current Visit: Yes - Patient Instructions Diet: Usual Diet as Tolerated, Drink 8-10+ Glasses/Day Activity: As Tolerated, No Strenuous Activities, Rest and Relax Today Driving: May Drive Today Driving, Other: Sitz baths as needed for perineal comfort Showering/Bathing: May Shower Notify Provider of: Fever, Increased Pain, Swelling and Redness, Drainage, Nausea and/or Vomiting - Discharge Plan *PRESCRIPTION DRUG MONITORING PROGRAM REVIEWED*: No *COPY OF PRESCRIPTION DRUG MONITORING REPORT IN PATIENT ANEUDY: No Prescriptions/Med Rec: Iron Polysaccharides Complex [Ferrex 150] 150 mg PO DAILY #30 cap Ibuprofen [Motrin] 800 mg PO Q8H PRN #90 tablet PRN Reason: Pain Home Medications: Home Meds Pnv No.95/Ferrous Fum/Folic AC [ Caplet] 1 tab PO DAILY 04/10/20 [History] Albuterol [Ventolin HFA] 2 puff INH Q4H PRN #1 inh 04/28/20 [Rx] NIFEdipine [Procardia Xl] 30 mg PO DAILY 05/29/20 [History] Ibuprofen [Motrin] 800 mg PO Q8H PRN #90 tablet 06/01/20 [Rx] Iron Polysaccharides Complex [Ferrex 150] 150 mg PO DAILY #30 cap 06/01/20 [Rx] Oxygen Therapy Mode: Room Air Referrals: Pablito Diaz [Ordering Only Provider] - Marino Raman MD [Physician] - 07/11/20 3:00 pm (6 week follow-up appointment.) - Discharge Summary/Plan Comment DC Time >30 min.: Yes (RTO in 1 week for BP check. ) - General Info Date of Service: 06/01/20 Admission Dx/Problem (Free Text: Patient Status Order with Admit Dx/Problem 05/29/20 12:03 Patient Status [ADT] Routine 05/29/20 12:58 Patient Status [ADT] Routine Admission Diagnosis/Problem Admission Diagnosis/Problem 05/29/20 14:03 Dilcia is a 25 yo PPD1 S/P to term NBM. O neg/O pos, RI, GBS pos with adequate ampicillin prophylaxis prior to . Patient has no complaints or concerns at this time. Patient is feeding baby well, resting comfortably in bed. Patient reports she is eating, voiding, ambulating independently and without difficulty. Patient denies any problems or concerns at this time except mild-moderate intermittent uterine cramping relieved with Ibuprofen and Tylenol. Patient reports small to moderate vaginal bleeding with no clots. Dr. Raman present at bedside this am to assess patient progress. Functional Status: Reports: Pain Controlled - Review of Systems General: Reports: No Symptoms HEENT: Reports: No Symptoms Pulmonary: Reports: No Symptoms Cardiovascular: Reports: No Symptoms Gastrointestinal: Reports: No Symptoms Genitourinary: Reports: No Symptoms Musculoskeletal: Reports: No Symptoms Skin: Reports: No Symptoms Neurological: Reports: No Symptoms Psychiatric: Reports: No Symptoms - Patient Data Vitals - Most Recent: Last Vital Signs Temp 97.7 F 06/01/20 09:00 Pulse 78 06/01/20 09:00 Resp 17 06/01/20 09:00 BP 136/80 06/01/20 09:00 Pulse Ox 97 06/01/20 09:00 Weight - Most Recent: 292 lb Lab Results - Last 24 hrs: Laboratory Results - last 24 hr 05/29/20 05/30/20 Range/Units 14:00 17:16 RPR Non-Reac (Non-Reac) Antibody Screen NEGATIVE Screen NEGATIVE (NEGATIVE) RhIG Candidate? YES Rhogam Indicated YES, BABY RH POS H Med Orders - Current: Current Medications Acetaminophen (Tylenol Extra Strength) 500 mg PO Q4H PRN PRN Reason: Pain Last Admin: 05/31/20 00:28 Dose: 500 mg Documented by: Acetaminophen (Tylenol Extra Strength) 1,000 mg PO Q4H PRN PRN Reason: Pain Last Admin: 06/01/20 02:02 Dose: 1,000 mg Documented by: Benzocaine/Menthol (Dermoplast Pain Relief 20%-0.5% [place]) 78 gm TOP ASDIRECTED PRN PRN Reason: Perineal Comfort Measure Bisacodyl (Dulcolax) 10 mg RECTAL ONETIME PRN PRN Reason: Constipation Butorphanol Tartrate (Stadol) 1 mg IVPUSH Q1H PRN PRN Reason: Pain Last Admin: 05/30/20 01:31 Dose: 1 mg Documented by: Carboprost Tromethamine (Hemabate Ds) 250 mcg IM ASDIRECTED PRN PRN Reason: Post Hemorrhage Docusate Sodium (Colace) 100 mg PO BID PRN PRN Reason: Constipation Last Admin: 05/31/20 08:29 Dose: 100 mg Documented by: Emollient Ointment (Lansinoh Hpa) 0 gm TOP ASDIRECTED PRN PRN Reason: Sore Nipples Last Admin: 05/31/20 21:02 Dose: 7 gram Documented by: Lactated Ringer's (Ringers, Lactated) 1,000 mls @ 150 mls/hr IV ASDIRECTED [facility] Last Infusion: 05/30/20 04:15 Dose: 150 mls/hr Documented by: Oxytocin/Sodium Chloride (Oxytocin 30 Unit/500 Ml-Ns) 30 unit in 500 mls @ 999 mls/hr IV TITRATE ZINA Tranexamic Acid 1,000 mg/ (Sodium Chloride) 110 mls @ 660 mls/hr IV ONETIME PRN PRN Reason: Bleeding Oxytocin/Sodium Chloride (Oxytocin 30 Unit/500 Ml-Ns) 30 unit in 500 mls @ 2 mls/hr IV TITRATE ZINA; Protocol Last Infusion: 05/30/20 13:30 Dose: 500 munits/min, 500 mls/hr Documented by: Ampicillin Sodium 1 gm/ Sodium (Chloride) 50 mls @ 100 mls/hr IV Q4H [facility] Last Admin: 05/30/20 12:30 Dose: 100 mls/hr Documented by: Ibuprofen (Motrin) 400 mg PO Q4H PRN PRN Reason: Pain Ibuprofen (Motrin) 800 mg PO Q6H PRN PRN Reason: Pain Last Admin: 06/01/20 08:15 Dose: 800 mg Documented by: Lidocaine HCl (Xylocaine 1%) 50 ml INJECT ONETIME PRN PRN Reason: Laceration repair Methylergonovine Maleate (Methergine) 0.2 mg IM ASDIRECTED PRN PRN Reason: Post Hemorrhage Misoprostol (Cytotec) 200 mcg PO ONETIME PRN PRN Reason: Post Hemorrhage Ondansetron HCl (Zofran) 4 mg IVPUSH Q6H PRN PRN Reason: Nausea/Vomiting Oxycodone HCl (Oxycodone) 5 mg PO Q2H PRN PRN Reason: Pain Polysaccharide Iron Complex (Ferrex 150) 150 mg PO BID ZINA Last Admin: 05/31/20 21:03 Dose: 150 mg Documented by: Sodium Chloride (Saline Flush) 10 ml FLUSH ASDIRECTED PRN PRN Reason: Keep Vein Open Sodium Chloride (Saline Flush) 2.5 ml FLUSH ASDIRECTED PRN PRN Reason: Keep Vein Open Sodium Chloride (Normal Saline) 10 ml IV ASDIRECTED PRN PRN Reason: IV Use Sterile Water (Sterile Water For Irrigation) 1,000 ml IRR ASDIRECTED PRN PRN Reason: delivery Justen Khoury (Tucks) 1 pad TOP ASDIRECTED PRN PRN Reason: comfort care Discontinued Medications Bupivacaine HCl (Marcaine 0.5%) Confirm Administered Dose 30 ml .ROUTE .STK-MED ONE Stop: 05/30/20 10:40 Fentanyl (Sublimaze) Confirm Administered Dose 100 mcg .ROUTE .STK-MED ONE Stop: 05/30/20 04:09 Last Admin: 05/30/20 05:53 Dose: Not Given Documented by: Fentanyl (Sublimaze) Confirm Administered Dose 100 mcg .ROUTE .STK-MED ONE Stop: 05/30/20 10:40 Fentanyl (Sublimaze) Confirm Administered Dose 100 mcg .ROUTE .STK-MED ONE Stop: 05/30/20 12:50 Ampicillin Sodium 2 gm/ Sodium (Chloride) 100 mls @ 200 mls/hr IV ONETIME ONE Stop: 05/29/20 14:29 Last Admin: 05/29/20 15:00 Dose: 200 mls/hr Documented by: Ampicillin Sodium 1 gm/ Sodium (Chloride) 50 mls @ 100 mls/hr IV Q4H ZINA Last Admin: 05/30/20 07:40 Dose: Not Given Documented by: Ropivacaine (Naropin 0.2%) Confirm Administered Dose 100 mls @ as directed .ROUTE .STK-MED ONE Stop: 05/30/20 04:09 Last Admin: 05/30/20 05:53 Dose: Not Given Documented by: Ropivacaine (Naropin 0.2%) Confirm Administered Dose 100 mls @ as directed .ROUTE .STK-MED ONE Stop: 05/30/20 12:50 Misoprostol (Cytotec) 50 mcg PO ONETIME ONE Stop: 05/29/20 20:16 Last Admin: 05/29/20 20:40 Dose: 50 mcg Documented by: Ropivacaine (Naropin 0.2%) Confirm Administered Dose 20 ml .ROUTE .STK-MED ONE Stop: 05/30/20 04:09 Last Admin: 05/30/20 05:53 Dose: Not Given Documented by: - Exam General: Reports: Alert, Oriented, Cooperative, No Acute Distress HEENT: Reports: Pupils Equal, Pupils Reactive, EOMI, Mucous Membr. Moist/[place] Neck: Reports: Supple Lungs: Reports: Clear to Auscultation, Normal Respiratory Effort Cardiovascular: Reports: Regular Rate, Regular Rhythm GI/Abdominal Exam: Normal Bowel Sounds, Soft, Non-Tender, No Organomegaly, No Distention (Female) Exam: Enlarged Uterus ( uterus, firm u+1), Vaginal Bleed ing (Moderate rubra lochia, no clots) Rectal (Female) Exam: Normal Exam, Normal Rectal Tone Back Exam: Reports: Normal Inspection, Full Range of Motion Extremities: Normal Inspection, Normal Range of Motion, Non-Tender, No Pedal Edema, Normal Capillary Refill Skin: Reports: Warm, Dry, Intact Wound/Incisions: Reports: Healing Well, No Drainage Neurological: Reports: No New Focal Deficit Psy/Mental Status: Reports: Alert, Normal Affect, Normal Mood
== END 2020-06-01 15:42 | disposition home or self-care (01) | DRG 807 ==
LOC: MW.OBCHECK 11:27 → MW.OB 11:27 → MW.OBCHECK 12:57 → MW.OB 12:58 → OBSVTOIN 05-30 13:15 → MW.OB 05-30 19:00
PROVIDERS: ADMIT Obstetrics & Gynecology; ATTEND Obstetrics & Gynecology
PROC: 10E0XZZ Delivery of Products of Conception, External Approach (ICD-10-PCS; principal; 2020-05-30)
PROC: 3E0P7VZ Introduction of Hormone into Female Reproductive, Via Natural or Artificial Opening (ICD-10-PCS; 2020-05-30)
PROC: 3E033VJ Introduction of Other Hormone into Peripheral Vein, Percutaneous Approach (ICD-10-PCS; 2020-05-30)
PROC: 3E0R3BZ Introduction of Anesthetic Agent into Spinal Canal, Percutaneous Approach (ICD-10-PCS; 2020-05-30)
PROC: 00HU33Z Insertion of Infusion Device into Spinal Canal, Percutaneous Approach (ICD-10-PCS; 2020-05-30)
PROC: 3E0234Z Introduction of Serum, Toxoid and Vaccine into Muscle, Percutaneous Approach (ICD-10-PCS; 2020-05-31)
DX: O99.824 Streptococcus B carrier state complicating childbirth (principal); Z37.0 Single live birth; O99.214 Obesity complicating childbirth; E66.01 Morbid (severe) obesity due to excess calories; O26.893 Other specified pregnancy related conditions, third trimester; O69.1XX0 Labor and delivery complicated by cord around neck, with compression, not applicable or unspecified; Z20.828 Contact with and (suspected) exposure to other viral communicable diseases; Z3A.37 37 weeks gestation of pregnancy; Z67.41 Type O blood, Rh negative
CPT/HCPCS: 36415; 36430; 51702; 59025; 59409; 84112; 85014; 85018; 85027; 85460; 86592; 86850; 86900; 86901; A9270-GY; J0290; J0595; J2590; J2792; J7050; J7120; U0002

== ENCOUNTER 2020-11-26 09:17 | Emergency (ER) | payer OTHER ==
--- NOTE | 2020-11-26 09:56 | EDM.PDOC ---
ED HPI GENERAL MEDICAL PROBLEM - General Chief Complaint: Fever Stated Complaint: SORE THROAT Time Seen by Provider: 11/26/20 09:42 - History of Present Illness INITIAL COMMENTS - FREE TEXT/NARRATIVE: 25-year-old female history of hypothyroidism levothyroxine presenting with sore throat myalgias nonproductive cough and fever last night. Symptoms started last night she was home from work in a.m. today. Some shortness of after coughing episode but otherwise no shortness of breath. No abdominal pain no vomiting no diarrhea. Symptoms of exacerbating or alleviating doctors radiation or other associated symptoms. 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 Musculoskeletal History: Reports: None Neurological History: Reports: None Psychiatric History: Reports: Anxiety, Bipolar, Depression, Panic Attack, PTSD Endocrine/Metabolic History: Reports: None Hematologic History: Reports: None Immunologic History: Reports: None Oncologic (Cancer) History: Reports: None Dermatologic History: Reports: None - Infectious Disease History Infectious Disease History: Reports: None - Past Surgical History Head Surgeries/Procedures: Reports: None HEENT Surgical History: Reports: Adenoidectomy, Oral Surgery Social & Family History - Family History Family Medical History: No Pertinent Family History HEENT: Reports: Impaired Vision Cardiac: Reports: Arrhythmia, Hypertension Respiratory: Reports: COPD GI: Reports: None : Reports: None OBGYN: Reports: Musculoskeletal: Reports: None Neurological: Reports: Dementia, Migraines Psychiatric: Reports: Anxiety, Bipolar, Depression Endocrine/Metabolic: Reports: Diabetes, Type I Hematologic: Reports: None Immunologic: Reports: None Dermatologic: Reports: None Oncologic: Reports: Leukemia - Caffeine Use Caffeine Use: Reports: Coffee ED ROS GENERAL - Review of Systems Review Of Systems: See Below Free Text/Narrative/Comment: General: Per HPI Skin: No rash. Eyes: No vision problems. ENT: Per HPI Neck: No neck stiffness. Respiratory: Per HPI Cardiac: No chest pain. Gastrointestinal: No nausea, vomiting or abdominal pain. Musculoskeletal: No myalgias/arthralgias. Neurologic: No headache. ED EXAM, GENERAL - Physical Exam Exam: See Below Free Text/Narrative:: General Appearance: No acute distress, appears comfortable Skin: No rash HEENT: Normocephalic/atraumatic, sclera anicteric, mucous membranes moist, no tonsillar enlargement no tonsillar erythema no tonsillar exudate no oropharyngeal erythema, no trismus no submental or sublingual swelling Neck: Normal range of motion Chest and Lungs: Bilateral breath sounds, clear to auscultation Cardiovascular: Minimally tachycardic rate regular rhythm, no murmur Abdomen: Soft, non-tender Back: Normal Musculoskeletal: No edema or tenderness Neurologic: Awake, alert, no obvious deficits, moving all extremities Psychiatric: Appropriate, cooperative Course - Vital Signs Last Recorded V/S: Last Vital Signs Temp 97.8 F 11/26/20 09:41 Pulse 117 H 11/26/20 09:41 Resp 18 11/26/20 09:41 BP 115/65 11/26/20 09:41 Pulse Ox 97 11/26/20 09:41 - Orders/Labs/Meds Labs: Laboratory Tests 11/26/20 Range/Units 10:02 Influenza Type A RNA NEGATIVE (NEGATIVE) Influenza Type B RNA NEGATIVE (NEGATIVE) SARS-CoV-2 RNA (JITENDRA) NEGATIVE (NEGATIVE) Departure - Departure Time of Disposition: 10:52 Disposition: Home, Self-Care 01 Condition: Good Clinical Impression: Viral URI with cough - Discharge Information *PRESCRIPTION DRUG MONITORING PROGRAM REVIEWED*: Not Applicable *COPY OF PRESCRIPTION DRUG MONITORING REPORT IN PATIENT ANEUDY: Not Applicable Instructions: Upper Respiratory Infection, Adult Referrals: Moira Peng NP [Primary Care Provider] - Forms: ED Department Discharge Additional Instructions: The following information is given to patients seen in the emergency department who are being discharged to home. This information is to outline your options for follow-up care. We provide all patients seen in our emergency department with a follow-up referral. The need for follow-up, as well as the timing and circumstances, are variable depending upon the specifics of your emergency department visit. If you don't have a primary care physician on staff, we will provide you with a referral. We always advise you to contact your personal physician following an emergency department visit to inform them of the circumstance of the visit and for follow-up with them and/or the need for any referrals to a consulting specialist. The emergency department will also refer you to a specialist when appropriate. This referral assures that you have the opportunity for follow-up care with a specialist. All of these measure are taken in an effort to provide you with optimal care, which includes your follow-up. Under all circumstances we always encourage you to contact your private physician who remains a resource for coordinating your care. When calling for fo llow-up care, please make the office aware that this follow-up is from your recent emergency room visit. If for any reason you are refused follow-up, please contact the [facility] Emergency Department at and asked to speak to the emergency department charge nurse. Sepsis Event Note (ED) - Evaluation Sepsis Screening Result: No Definite Risk - Focused Exam Vital Signs: Vital Signs Temp Pulse Resp BP Pulse Ox 11/26/20 09:41 97.8 F 117 H 18 115/65 97 - Assessment/Plan Assessment:: 25-year-old female presenting with signs and symptoms most consistent with viral URI. Covid is a consideration no clinical findings that would suggest strep. Given fever and cough chest x-ray to evaluate for bacterial pneumonia as well. Nothing suggest cardiac process. 1052: CXR and COVID negative. Pt nontoxic, discharged with viral URI
--- NOTE | 2020-11-26 10:44 | CR ---
INDICATION: Cough fever TECHNIQUE: Single view chest. FINDINGS: The lungs are clear. The heart, mediastinum and pulmonary vessels are of normal size. There is no evidence of pleural disease. IMPRESSION: Negative chest. Dictated by Twila Briones MD @ 11/26/2020 10:43:[address] Twila Briones @ Nov 26 2020 10:43AM
[2020-11-26 10:47] LABS: CORONAVIRUS COVID-19 NAA NEGATIVE (NEGATIVE); INFLUENZA A NAA NEGATIVE (NEGATIVE); INFLUENZA B NAA NEGATIVE (NEGATIVE)
== END 2020-11-26 10:58 | disposition home or self-care (01) ==
LOC: MW.ED 09:17
DX: O99.513 Diseases of the respiratory system complicating pregnancy, third trimester (principal); J06.9 Acute upper respiratory infection, unspecified; E03.9 Hypothyroidism, unspecified; Z3A.31 31 weeks gestation of pregnancy; Z79.899 Other long term (current) drug therapy; Z20.822 Contact with and (suspected) exposure to COVID-19
CPT/HCPCS: 0240U; 71045; 71045-26; 99282; 99283-25

== ENCOUNTER 2021-03-17 11:04 | Emergency (ER) | payer OTHER ==
--- NOTE | 2021-03-17 12:22 | EDM.PDOC ---
ED HPI GENERAL MEDICAL PROBLEM - General Chief Complaint: General Stated Complaint: HEADACHE COUGH SOB SORE THROAT Time Seen by Provider: 03/17/21 12:08 - History of Present Illness INITIAL COMMENTS - FREE TEXT/NARRATIVE: Patient presents complaining of cough headache sore throat body aches low-grade temperature elevations. She is not vaccinated against Covid. No Covid contacts. Patient denies any thick yellow-green phlegm. No history of blood clot. No unilateral leg swelling. No recent injury, cancer, surgery. No smoking or control. Patient has traveled recently to [place]. - Related Data Allergies Allergy/AdvReac Type Severity Reaction Status Date / Time No Known Allergies Allergy Verified 03/17/21 12:17 Home Meds: Home Meds Control 11/26/20 [History] Past Medical History - Past Health History Medical/Surgical History: Denies Medical/Surgical History HEENT History: Reports: None Cardiovascular History: Reports: None Respiratory History: Reports: None Gastrointestinal History: Reports: None Genitourinary History: Reports: None MACADAM RAKER History: Reports: Other MACADAM RAKER History: 31 weeks Musculoskeletal History: Reports: None Neurological History: Reports: None Psychiatric History: Reports: Anxiety, Bipolar, Depression, Panic Attack, PTSD Endocrine/Metabolic History: Reports: Hypothyroidism Hematologic History: Reports: None Immunologic History: Reports: None Oncologic (Cancer) History: Reports: None Dermatologic History: Reports: None - Infectious Disease History Infectious Disease History: Reports: None - Past Surgical History Head Surgeries/Procedures: Reports: None HEENT Surgical History: Reports: Adenoidectomy, Oral Surgery Endocrine Surgical History: Reports: None Social & Family History - Family History Family Medical History: No Pertinent Family History HEENT: Reports: Impaired Vision Cardiac: Reports: Arrhythmia, Hypertension Respiratory: Reports: COPD GI: Reports: None : Reports: None OBGYN: Reports: Musculoskeletal: Reports: None Neurological: Reports: Dementia, Migraines Psychiatric: Reports: Anxiety, Bipolar, Depression Endocrine/Metabolic: Reports: Diabetes, Type I Hematologic: Reports: None Immunologic: Reports: None Dermatologic: Reports: None Oncologic: Reports: Leukemia - Tobacco Use Tobacco Use Status *Q: Never Tobacco User - Caffeine Use Caffeine Use: Reports: Coffee - Recreational Drug Use Recreational Drug Use: No ED ROS GENERAL - Review of Systems Review Of Systems: Comprehensive ROS is negative, except as noted in HPI. ED EXAM, GENERAL - Physical Exam Exam: See Below Free Text/Narrative:: CONSTITUTIONAL: well appearing in no acute distress SKIN: Warm, dry, and intact without rash HENT: Normocephalic, atraumatic, PULMONARY: clear to ausculation bilaterally. No rales, rhonchi, wheezing CARDIOVASCULAR: regular rate, No murmur, rubs, or gallops GASTROINTESTINAL: soft, nondistended, nontender NEUROLOGIC: normal speech, II-XII intact. light touch/5/5 power equal and symmetric in upper and lower extremities without deficit MUSCULOSKELETAL: no gross deformities, atraumatic PSYCHIATRIC: normal mood and affect Course - Vital Signs Text/Narrative:: Covid, pneumonia, PE, viral syndrome, bacterial pathology, other Presents as outlined above. Positive for Covid. Patient is not hypoxic and otherwise well-appearing. Supportive care with return precautions and PCP follow-up Last Recorded V/S: Last Vital Signs Temp 37.4 C 03/17/21 12:02 Pulse 95 03/17/21 12:02 Resp 20 03/17/21 12:02 BP 147/89 H 03/17/21 12:02 Pulse Ox 96 03/17/21 12:02 - Orders/Labs/Meds Labs: Laboratory Tests 03/17/21 Range/Units 12:40 SARS-CoV-2 RNA (JITENDRA) POSITIVE H (NEGATIVE) Departure - Departure Time of Disposition: 14:00 Disposition: Home, Self-Care 01 Condition: Good Clinical Impression: COVID-19 - Discharge Information Instructions: COVID-19 Referrals: Moira Peng NP [Primary Care Provider] - Forms: ED Department Discharge Additional Instructions: Return for difficulty breathing, change or worsening condition or lack of improvement. The following information is given to patients seen in the emergency department who are being discharged to home. This information is to outline your options for follow-up care. We provide all patients seen in our emergency department with a follow-up referral. The need for follow-up, as well as the timing and circumstances, are variable depending upon the specifics of your emergency department visit. If you don't have a primary care physician on staff, we will provide you with a referral. We always advise you to contact your personal physician following an emergency department visit to inform them of the circumstance of the visit and for follow-up with them and/or the need for any referrals to a consulting specialist. The emergency department will also refer you to a specialist when appropriate. This referral assures that you have the opportunity for follow-up care with a specialist. All of these measure are taken in an effort to provide you with optimal care, which includes your follow-up. Primary care clinics in the area: [facility] [address] [place] [id number] [facility] [address] [place] [id number] Under all circumstances we always encourage you to contact your private physician who remains a resource for coordinating your care. When calling for follow-up care, please make the office aware that this follow-up is from your recent emergency room visit. If for any reason you are refused follow-up, please contact the [facility] Emergency Department at and asked to speak to the emergency department charge nurse. Sepsis Event Note (ED) - Evaluation Sepsis Screening Result: No Definite Risk - Focused Exam Vital Signs: Vital Signs Temp Pulse Resp BP Pulse Ox 03/17/21 12:02 37.4 C 95 20 147/89 H 96
--- NOTE | 2021-03-17 13:42 | CR ---
Indication: Cough. Technique: AP portable view of the chest. Comparison: November 26, 2020. Findings: Heart is normal in size. The lungs are clear. No infiltrate, pleural effusion, or pneumothorax is identified. Impression: No acute cardiopulmonary process Dictated by Darya Gee MD @ 03/17/2021 1:40:[address] Darya Gee @ Mar 17 2021 1:40PM
== END 2021-03-17 14:15 | disposition home or self-care (01) ==
LOC: MW.ED 11:04
DX: U07.1 COVID-19 (principal)
CPT/HCPCS: 71045; 71045-26; 99283; 99284-25; U0002

== ENCOUNTER 2021-07-03 12:34 | Emergency (ER) | payer OTHER ==
--- NOTE | 2021-07-03 13:17 | EDM.PDOC ---
ED HPI GENERAL MEDICAL PROBLEM - General Chief Complaint: General Stated Complaint: POSSIBLE ABCESS Time Seen by Provider: 07/03/21 13:02 Source of Information: Reports: Patient History Limitations: Reports: No Limitations - History of Present Illness INITIAL COMMENTS - FREE TEXT/NARRATIVE: Patient is a 26-year-old female presents today for right lower jaw pain and swelling. Patient believes she has dental abscess. She has been having problems with her teeth for the lower right side for the past few months. She recently had one of the teeth filled for cavity. She denies any difficulty swallowing or breathing. She has some pain on the side some pain when she chews. She is been taken Tylenol at home she is so that she can take the Tylenol helped slightly. She is scheduled see her dentist tomorrow. right face, jaw, dental Pain Score (Numeric/FACES): 9 - Related Data Allergies Allergy/AdvReac Type Severity Reaction Status Date / Time No Known Allergies Allergy Verified 07/03/21 13:07 Home Meds: Home Meds . 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 History: 31 weeks Musculoskeletal History: Reports: None Neurological History: Reports: None Psychiatric History: Reports: Anxiety, Bipolar, Depression, Panic Attack, PTSD Endocrine/Metabolic History: Reports: Hypothyroidism Hematologic History: Reports: None Immunologic History: Reports: None Oncologic (Cancer) History: Reports: None Dermatologic History: Reports: None - Infectious Disease History Infectious Disease History: Reports: Novel Coronavirus - Past Surgical History Head Surgeries/Procedures: Reports: None HEENT Surgical History: Reports: Adenoidectomy, Oral Surgery Endocrine Surgical History: Reports: None Social & Family History - Family History Family Medical History: No Pertinent Family History HEENT: Reports: Impaired Vision Cardiac: Reports: Arrhythmia, Hypertension Respiratory: Reports: COPD GI: Reports: None : Reports: None OBGYN: Reports: Musculoskeletal: Reports: None Neurological: Reports: Dementia, Migraines Psychiatric: Reports: Anxiety, Bipolar, Depression Endocrine/Metabolic: Reports: Diabetes, Type I Hematologic: Reports: None Immunologic: Reports: None Dermatologic: Reports: None Oncologic: Reports: Leukemia - Tobacco Use Tobacco Use Status *Q: Never Tobacco User - Caffeine Use Caffeine Use: Reports: Coffee - Recreational Drug Use Recreational Drug Use: No ED ROS GENERAL - Review of Systems Review Of Systems: See Below Constitutional: Reports: No Symptoms HEENT: Reports: Dental Pain Respiratory: Reports: No Symptoms Cardiovascular: Reports: No Symptoms Endocrine: Reports: No Symptoms GI/Abdominal: Reports: No Symptoms : Reports: No Symptoms Musculoskeletal: Reports: No Symptoms Skin: Reports: No Symptoms Neurological: Reports: No Symptoms Psychiatric: Reports: No Symptoms Hematologic/Lymphatic: Reports: No Symptoms Immunologic: Reports: No Symptoms ED EXAM, GENERAL - Physical Exam Exam: See Below Exam Limited By: No Limitations General Appearance: Alert, WD/WN, No Apparent Distress Ears: Normal External Exam Nose: Normal Inspection Throat/Mouth: Normal Inspection, Normal Gums, Normal Voice, No Airway Compromise. No: Normal Teeth Head: Atraumatic Neck: Normal Inspection, Supple, Non-Tender Respiratory/Chest: No Respiratory Distress, Lungs Clear Neurological: Alert, Oriented, Normal Cognition, Normal Gait Course - Vital Signs Last Recorded V/S: Last Vital Signs Temp 97.7 F 07/03/21 13:05 Pulse 86 07/03/21 13:05 Resp 16 07/03/21 13:05 BP 141/72 H 07/03/21 13:05 Pulse Ox 98 07/03/21 13:05 Departure - Departure Time of Disposition: 13:16 Disposition: Home, Self-Care 01 Condition: Good Clinical Impression: Dental abscess - Discharge Information *PRESCRIPTION DRUG MONITORING PROGRAM REVIEWED*: Not Applicable *COPY OF PRESCRIPTION DRUG MONITORING REPORT IN PATIENT ANEUDY: Not Applicable Instructions: Dental Abscess, [id number] Referrals: Moira Peng NP [Primary Care Provider] - Additional Instructions: You were seen today for pain in your right lower jaw likely related to a dental abscess. We will start you on antibiotics. We still recommend you follow-up with your dentist tomorrow. If you have any difficulty swallowing or breathing please return to the ED of immediately otherwise follow-up with your primary care physician. The following information is given to patients seen in the emergency department who are being discharged to home. This information is to outline your options for follow-up care. We provide all patients seen in our emergency department w ith a follow-up referral. The need for follow-up, as well as the timing and circumstances, are variable depending upon the specifics of your emergency department visit. If you don't have a primary care physician on staff, we will provide you with a referral. We always advise you to contact your personal physician following an emergency department visit to inform them of the circumstance of the visit and for follow-up with them and/or the need for any referrals to a consulting specialist. The emergency department will also refer you to a specialist when appropriate. This referral assures that you have the opportunity for follow-up care with a specialist. All of these measure are taken in an effort to provide you with optimal care, which includes your follow-up. Under all circumstances we always encourage you to contact your private physician who remains a resource for coordinating your care. When calling for follow-up care, please make the office aware that this follow-up is from your recent emergency room visit. If for any reason you are refused follow-up, please contact the [facility] Emergency Department at and asked to speak to the emergency department charge nurse. Please follow up with your primary care physician. If you do not have a primary care physician, see below: [facility] [address] [place] [id number] [facility] [address] [place] [id number] Sepsis Event Note (ED) - Evaluation Sepsis Screening Result: No Definite Risk - Focused Exam Vital Signs: Vital Signs Temp Pulse Resp BP Pulse Ox 07/03/21 13:05 97.7 F 86 16 141/72 H 98 - Assessment/Plan Plan: Is a 26-year-old female who presents today for pain and swelling to the lower jaw patient likely has a dental abscess. Will prescribe antibiotics oral mouthwash and have patient follow-up with dentist tomorrow.
== END 2021-07-03 13:37 | disposition home or self-care (01) ==
LOC: MW.ED 12:34
DX: K04.7 Periapical abscess without sinus (principal)
CPT/HCPCS: 99282

== ENCOUNTER 2021-08-26 17:34 | Emergency (ER) | payer OTHER ==
[2021-08-26] MEDS ORDERED: Sodium Chloride 0.9% 2.5 ML Syringe FLUSH PRN (18:12)
[2021-08-26] MEDS ORDERED: Sodium Chloride 0.9% 1,000 ML IV ONE (18:12)
[2021-08-26] MEDS ORDERED: Sodium Chloride 0.9% 10 ML Syringe FLUSH PRN (18:12)
[2021-08-26] MEDS ORDERED: Ondansetron 4 MG/2 ML SDV IVPUSH ONE (19:52)
[2021-08-26 20:39] LABS: BLOOD UREA NITROGEN,BUN 14 mg/dL (7.0-18.0); CARBON DIOXIDE,CO2 27.2 mmol/L (21.0-32.0); CHLORIDE,CL 103 mmol/L (98-107); GLUCOSE RANDOM 108 mg/dL (74-106); LIPASE 56 U/L (73-393); POTASSIUM,K 3.7 mmol/L (3.5-5.1); SODIUM,NA 141 mmol/L (136-145)
[2021-08-26] MEDS ORDERED: diphenhydrAMINE 50 MG/ML SDV IVPUSH ONE (20:57)
[2021-08-26] MEDS ORDERED: Metoclopramide 10 MG/2 ML SDV IV ONE (20:57)
== END 2021-08-26 22:38 | disposition home or self-care (01) ==
LOC: MW.ED 17:34
DX: O03.4 Incomplete spontaneous abortion without complication (principal); N39.0 Urinary tract infection, site not specified; R11.2 Nausea with vomiting, unspecified
CPT/HCPCS: 36415; 80053; 81001; 83690; 83735; 84702; 85025; 96374; 96375; 99284; J1200; J2405; J2765; J7030

== ENCOUNTER 2021-08-30 12:59 | Emergency (ER) | payer OTHER ==
[2021-08-30] MEDS ORDERED: Sodium Chloride 0.9% 1,000 ML IV ONE (13:24)
[2021-08-30] MEDS ORDERED: fentaNYL 50 MCG/ML SDV IVPUSH ONE (14:34)
[2021-08-30] MEDS ORDERED: Ondansetron 4 MG/2 ML SDV IVPUSH ONE (14:34)
[2021-08-30 14:46] LABS: BLOOD UREA NITROGEN,BUN 9 mg/dL (7.0-18.0); CARBON DIOXIDE,CO2 23.4 mmol/L (21.0-32.0); CHLORIDE,CL 105 mmol/L (98-107); GLUCOSE RANDOM 107 mg/dL (74-106); POTASSIUM,K 3.6 mmol/L (3.5-5.1); SODIUM,NA 141 mmol/L (136-145)
[2021-08-30] MEDS ORDERED: Methylergonovine 0.2 MG/1 ML Amp IM STA (15:57)
== END 2021-08-30 16:21 | disposition home or self-care (01) ==
LOC: MW.ED 12:59
DX: O03.4 Incomplete spontaneous abortion without complication (principal)
CPT/HCPCS: 36415; 80048; 84702; 85025; 86850; 86900; 86901; 90384; 96372; 96374; 96375; 99283; J2210; J2405; J3010; J7030; 36430; J2790

== ENCOUNTER 2022-04-09 12:28 | Emergency (ER) | payer OTHER ==
[2022-04-09] MEDS ORDERED: Sodium Chloride 0.9% 1,000 ML IV ONE (13:25)
[2022-04-09] MEDS ORDERED: Ondansetron 4 MG/2 ML SDV IVPUSH ONE (13:29)
[2022-04-09 14:35] LABS: CARBON DIOXIDE,CO2 23.9 mmol/L (21.0-32.0); POTASSIUM,K 3.7 mmol/L (3.5-5.1)
== END 2022-04-09 15:35 | disposition home or self-care (01) ==
LOC: MW.ED 12:28
DX: O99.282 Endocrine, nutritional and metabolic diseases complicating pregnancy, second trimester (principal); E86.0 Dehydration; Z20.822 Contact with and (suspected) exposure to COVID-19; Z3A.14 14 weeks gestation of pregnancy
CPT/HCPCS: 36415; 80053; 81003; 85025; 87635; 96361; 96374; 99284; J2405; J7030; U0002